=== PATIENT | male | born 1945 | race Caucasian/White ===

== ENCOUNTER → 2017-01-01 | Outpatient (CLI) | payer BC ==
[~2017-01-01] MED LIST: ASPCH81; FINA5TAB PO; FLM4 PO; NITR-5 PO; PHEN-876 PO; SULF800T23 PO
== END | disposition home or self-care (01) ==
LOC: C.LABPVFM 14:39
PROVIDERS: ATTEND Urology
DX: R31.29 Other microscopic hematuria (principal)

== ENCOUNTER → 2018-01-14 | Outpatient (CLI) | payer BC ==
--- NOTE | 2018-01-14 10:52 | DIAGNOSTIC IMAGING REPORT ---
KUB CLINICAL HISTORY: NEPHROLITHIASIS COMPARISON STUDY: CT scan dated December 12, 2015 FINDINGS: The renal shadows are partially obscured overlying bowel gas. Linear calcifications project over the upper pole the left kidney are likely vascular. No calculi are visualized. There is no pathologic bowel dilatation. Tiny pelvic basin calcifications while nonspecific likely represent phleboliths. Degenerative changes are present within the spine. IMPRESSION: No urinary tract calculi are visualized on conventional radiographic imaging Electronically signed by: Dev Montgomery M.D. 01/14/2018 10:51 AM Dictated Date/Time: 01/14/2018 10:50 AM
== END | disposition home or self-care (01) ==
LOC: C.LABPVFM 10:29
PROVIDERS: ATTEND Urology
DX: N20.0 Calculus of kidney (principal); R97.20 Elevated prostate specific antigen [PSA]; Z12.5 Encounter for screening for malignant neoplasm of prostate

== ENCOUNTER 2020-03-20 13:25 | Observation (INO) ==
--- OUTSIDE RECORDS SUMMARY | 2020-03-20 13:27 | External Medical Summary | Continuity of Care Document ---
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) Hyperlipidemia (272.4) (E78.5) Nephrolithiasis (592.0) (N20.0) Benign prostatic hyperplasia with urinary obstruction (600.0 1) (N40.1) Seborrheic keratosis (702.19) (L82.1) Melanocytic nevus of trunk (216.5) (D22.5) Actinic keratosis (702.0) (L57.0) Actinic skin damage (692.79) (L57.8) Encounter for prostate cancer screening (V76.44) (Z12.5) Elevated PSA (790.93) (R97.20) Hematuria, microscopic (599.72) (R31.29) 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 Refills: 0 hydroCHLOROthiazide 12.5 MG Oral Capsule Refills: 0 Metoprolol Tartrate 25 MG Oral Tablet Refills: 0 Simvastatin 20 MG Oral Tablet; TAKE 1 TABLET DAILY AT BEDTIME. HALLE Ocampo Quantity: 90 Refills: 1 Fluticasone Propionate 50 MCG/ACT Nasal Suspension; USE 2 SPRAYS IN EACH NOSTRIL TWICE DAILY. Refills: 0 Procedures History of Umbilical Hernia Repair Statu s: Completed Immunizations Immunizations not documented Social History - Smoking Status Never smoked tobacco Interventions Follow-ups/ReferralsFollow-up visit in 1 year; Done: 24 Jan 2019 Discussion/SummaryAssessment1. Lower urinary tract symptoms-doing well on Uroxatral-continue2. Prostate cancer screening-PSA normal OSMANI without nodularity 3. History of nephrolithiasis-no problems with stones recentlyGeneral stone prevention guidelines reinforced Plan of Treatment Planned Observations Planned Goals not documented Results No Known Results Results not documented Encounters Appointment; Pankaj Meier M.D. 04-Aug-2018 9:00 Encounter Diagnosis: Problem not documented Appointment; Morro Perez M.D. 24-Jan-2019 13:30 Encounter Diagnosis: Problem not documented
--- OUTSIDE RECORDS SUMMARY | 2020-03-20 13:28 | External Medical Summary | Continuity of Care Document ---
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 Refills: 0 Simvastatin 20 MG Oral Tablet; TAKE 1 TABLET DAILY AT BEDTIME. HALLE Ocampo Quantity: 90 Refills: 1 Fluticasone Propionate 50 MCG/ACT Nasal Suspension; USE 2 SPRAYS IN EACH NOSTRIL TWICE DAILY. Refills: 0 Alfuzosin HCl ER 10 MG Oral Tablet Exten ded Release 24 Hour; TAKE 1 TABLET Daily after supper Lauren Perez Start: 22-Oct-2015 Quantity: 90 Refills: 3 hydroCHLOROthiazide 12.5 MG Oral Capsule Refills: 0 Metoprolol Tartrate 25 MG Oral Tablet Refills: 0 Procedures History of Umbilical Hernia [...]
--- NOTE | 2020-03-20 14:51 | Emergency Department Note ---
ED Visit Note My name is Giovany Maher D.O. PGY-2, and I was involved in the care of this patient under attending ED physician Dr. Godfrey. . Resident Activity Tracking Resident Involvement: Resident Care Provided Care Provided: [facility]
[2020-03-20 14:59] LABS: INR 1.1 (0.9-1.1); Prothrombin Time 11.6 Seconds (9.0-12.0)
[2020-03-20 15:05] LABS: Aspartate Aminotransferase 17 U/L (15-37); BUN Creatinine Ratio 20.9 (10-20); Blood Urea Nitrogen 24 mg/dl (7-18); Calcium 9.5 mg/dl (8.5-10.1); Carbon Dioxide 28 mmol/L (21-32); Chloride 108 mmol/L (98-107); Creatinine Clr Calc Pharmacy 66.6 ml/min; Est GFR (African American) 70.8; Est GFR (Non-African American) 61.1; Glucose 95 mg/dl (70-99); Magnesium 2.1 mg/dl (1.8-2.4); Potassium 3.9 mmol/L (3.5-5.1); Sodium 140 mmol/L (136-145)
--- NOTE | 2020-03-20 15:05 | Emergency Department Note ---
History of Present Illness General Chief complaint: Syncope Stated complaint: FALL,SYNCOPE,HANDS TINGLING Time Seen by Provider: 03/20/20 14:05 Source: patient History of Present Illness Provider complaint: Syncope Onset (ago): hour(s) (1:30 PM today) Location: head Pain Consistency: + now resolved Maximum Pain Intensity: 0 Quality: + other Relieved By: + none Associated symptoms: no chest pain, no cough, no fever/chills, no nausea/vomit ing and no shortness of breath This is a 74-year-old male with a history of aortic stenosis presenting with a syncopal episode today. The patient was at work eating salty snacks. [facility] and walking with a colleague the next thing he remembers is his colleague standing over him while he is laying on the ground. He had no symptoms prior to the incident other than feeling thirsty. He states that he had no chest discomfort or shortness of breath, palpitations, abdominal pain or headache. He has had no cough or cold symptoms or known exposure to COVID-19. He did pass out approximately 30 years ago [place] the beach. He states going [place] the cold water [place] the warm environment caused him to pass out. He was hospitalized in [place] for 2 days where they put him on Lanoxin. He subsequently had another syncopal episode under similar circumstances and was told by cook chef not to go from [place] to a hot environment and was taken off of digoxin. Currently he states that he has tingling in both of his forearms and fingers as well as some jaw tightness. He states that he did not fall on his face or injure his teeth. He denies any neck pain or any other injury other than a head injury from the fall. He has no hip pain. No melena or bloody stools. Home Medications Home Medications Medication Instructions Recorded Confirmed Type alfuzosin 10 mg PO QPM 08/04/18 03/20/20 History aspirin 81 mg PO QPM 08/04/18 03/20/20 History fluticasone propionate [Flonase 2 spray INTRANASAL DAILY PRN 08/04/18 03/20/20 History Allergy Relief] hydrochlorothiazide 12.5 mg PO QAM 08/04/18 03/20/20 History metoprolol succinate 25 mg PO QAM 08/04/18 03/20/20 History simvastatin 20 mg PO QPM 08/04/18 03/20/20 History epinephrine [EpiPen] 0.3 mg IM DIRECTED PRN 03/20/20 03/20/20 History Allergies Allergy/AdvReac Type Severity Reaction Status Date / Time bee venom protein (honey bee) Allergy Severe Anaphylaxis Verified 03/20/20 16:37 Past Med/Surg History Medical History (Updated 03/20/20 @ 17:50 by Tylor Godfrey MD) Aortic stenosis (Acute) BPH (benign prostatic hyperplasia) Cardiac murmur CONGENITAL Degenerative disc disease History of pneumonia History of umbilical hernia Hyperlipidemia Hypertension Osteoarthritis Paroxysmal atrial fibrillation (Chronic) Surgical History History of cataract surgery RT History of colonoscopy History of herniorrhaphy History of surgery TUNA History of tonsillectomy History of tooth extraction Family History Other Cancer Heart disease Social History Preferred Language: Nigerien Communication Ability: Effective 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 and A total of 10 systems reviewed and were otherwise negative Physical Exam Vital Signs Vital Signs - 24 hr 03/20/20 13:48 03/20/20 14:04 03/20/20 14:07 Temperature 37.1 C Temperature Source Oral Pulse Rate - Lying Pulse Rate - Sitting Pulse Rate - Standing Pulse Rate 62 58 L 58 L Pulse Rate from SpO2 Sensor 59 L 58 L Respiratory Rate 16 22 20 Respiratory Depth Normal Blood Pressure - Lying Blood Pressure - Sitting Blood Pressure- Standing Blood Pressure 146/69 H 151/68 H Blood Pressure Mean 94 87 Pulse Oximetry 95 94 94 Oxygen Delivery Method Room Air Room Air Sepsis Recent Fever Within 48 Hours No Sepsis New/Unexplained Change in Mental Status No Sepsis Action Taken by Nursing No Action Required 03/20/20 14:10 03/20/20 14:20 03/20/20 14:30 Temperature Temperature Source Pulse Rate - Lying Pulse Rate - Sitting Pulse Rate - Standing Pulse Rate 63 62 63 Pulse Rate from SpO2 Sensor 63 62 Respiratory Rate 20 23 22 Respiratory Depth Blood Pressure - Lying Blood Pressure - Sitting Blood Pressure- Standing Blood Pressure 141/69 H Blood Pressure Mean 109 Pulse Oximetry 97 99 Oxygen Delivery Method Sepsis Recent Fever Within 48 Hours Sepsis New/Unexplained Change in Mental Status Sepsis Action Taken by Nursing 03/20/20 14:40 03/20/20 14:50 03/20/20 15:00 Temperature Temperature Source Pulse Rate - Lying Pulse Rate - Sitting Pulse Rate - Standing Pulse Rate 61 62 61 Pulse Rate from SpO2 Sensor 61 62 62 Respiratory Rate 20 20 23 Respiratory Depth Blood Pressure - Lying Blood Pressure - Sitting Blood Pressure- Standing Blood Pressure 125/66 Blood Pressure Mean 106 Pulse Oximetry 95 96 94 Oxygen Delivery Method Sepsis Recent Fever Within 48 Hours Sepsis New/Unexplained Change in Mental Status Sepsis Action Taken by Nursing 03/20/20 15:10 03/20/20 15:11 03/20/20 15:31 Temperature Temperature Source Pulse Rate - Lying 58 L Pulse Rate - Sitting 64 Pulse Rate - Standing 66 Pulse Rate 58 L 57 L 56 L Pulse Rate from SpO2 Sensor 57 L 57 L 57 L Respiratory Rate 17 19 20 Respiratory Depth Blood Pressure - Lying 141/66 H Blood Pressure - Sitting 145/69 H Blood Pressure- Standing 140/68 Blood Pressure 145/69 H 136/73 Blood Pressure Mean 105 86 Pulse Oximetry 96 95 96 Oxygen Delivery Method Sepsis Recent Fever Within 48 Hours Sepsis New/Unexplained Change in Mental Status Sepsis Action Taken by Nursing 03/20/20 15:40 03/20/20 15:50 03/20/20 16:00 Temperature Temperature Source Pulse Rate - Lying Pulse Rate - Sitting Pulse Rate - Standing Pulse Rate 58 L 57 L 62 Pulse Rate from SpO2 Sensor 59 L 57 L 63 Respiratory Rate 21 20 19 Respiratory Depth Blood Pressure - Lying Blood Pressure - Sitting Blood Pressure- Standing Blood Pressure Blood Pressure Mean Pulse Oximetry 95 94 97 Oxygen Delivery Method Sepsis Recent Fever Within 48 Hours Sepsis New/Unexplained Change in Mental Status Sepsis Action Taken by Nursing 03/20/20 16:01 03/20/20 16:10 03/20/20 16:20 Temperature Temperature Source Pulse Rate - Lying Pulse Rate - Sitting Pulse Rate - Standing Pulse Rate 58 L 58 L 56 L Pulse Rate from SpO2 Sensor 58 L 59 L 57 L Respiratory Rate 22 24 17 Respiratory Depth Blood Pressure - Lying Blood Pressure - Sitting Blood Pressure- Standing Blood Pressure 153/58 H Blood Pressure Mean 108 Pulse Oximetry 96 95 95 Oxygen Delivery Method Sepsis Recent Fever Within 48 Hours Sepsis New/Unexplained Change in Mental Status Sepsis Action Taken by Nursing 03/20/20 16:30 03/20/20 16:40 03/20/20 16:50 Temperature Temperature Source Pulse Rate - Lying Pulse Rate - Sitting Pulse Rate - Standing Pulse Rate 60 60 63 Pulse Rate from SpO2 Sensor 60 60 63 Respiratory Rate 16 21 21 Respiratory Depth Blood Pressure - Lying Blood Pressure - Sitting Blood Pressure- Standing Blood Pressure 149/71 H Blood Pressure Mean 104 Pulse Oximetry 95 96 97 Oxygen Delivery Method Sepsis Recent Fever Within 48 Hours Sepsis New/Unexplained Change in Mental Status Sepsis Action Taken by Nursing 03/20/20 17:00 03/20/20 17:01 03/20/20 17:10 Temperature Temperature Source Pulse Rate - Lying Pulse Rate - Sitting Pulse Rate - Standing Pulse Rate 65 64 61 Pulse Rate from SpO2 Sensor 63 63 62 Respiratory Rate 17 22 21 Respiratory Depth Blood Pressure - Lying Blood Pressure - Sitting Blood Pressure- Standing Blood Pressure 187/76 H Blood Pressure Mean 99 Pulse Oximetry 97 96 95 Oxygen Delivery Method Sepsis Recent Fever Within 48 Hours Sepsis New/Unexplained Change in Mental Status Sepsis Action Taken by Nursing 03/20/20 17:20 Temperature Temperature Source Pulse Rate - Lying Pulse Rate - Sitting Pulse Rate - Standing Pulse Rate 63 Pulse Rate from SpO2 Sensor 63 Respiratory Rate 19 Respiratory Depth Blood Pressure - Lying Blood Pressure - Sitting Blood Pressure- Standing Blood Pressure Blood Pressure Mean Pulse Oximetry 94 Oxygen Delivery Method Sepsis Recent Fever Within 48 Hours Sepsis New/Unexplained Change in Mental Status Sepsis Action Taken by Nursing Constitutional: Vital signs reviewed. Eyes: Pupils are equal round reactive to light. Conjunctiva are noninjected. ENT: Pharynx is clear without erythema or exudate. Mucous membranes are moist. No jaw or facial tenderness. No midline tenderness to the cervical spine. There is soft tissue swelling and an abrasion to the right occiput. Neck supple without meningeal signs. Respiratory: Clear to auscultation bilaterally. Breath sounds are equal bilaterally. Cardiovascular: Regular rate and rhythm. No rubs or gallops. 3 out of 6 systolic murmur in the right second ICS. GI: Soft, nondistended and nontender. Bowel sounds are present. Musculoskeletal: No peripheral edema. No lower extremity or hip tenderness. Integumentary: No cyanosis. or jaundice. Neurologic: The patient is awake and alert. Cranial nerves II-XII are intact. Motor is 5 out of 5 all extremities. Sensation is intact to light touch all extremities. Normal speech. Psychiatric: Normal affect. Not anxious appearing. Medical Decision Making Differential Diagnosis Syncope, dysrhythmia, aortic stenosis, orthostatic hypotension, anemia Medical Records Attestation: I reviewed the patient's medical records. I did perform a limited focused review of portions of the patient's old chart on the electronic medical record. The patient has had no recent pertinent visits to this hospital. Home Medications Current Medication List: was personally reviewed by me Laboratory Data Attestation: I reviewed the patient's lab results. Result diagrams: 03/20/20 14:40 03/20/20 14:40 Lab Results 03/20/20 03/20/20 03/20/20 Range/Units 14:40 14:40 14:40 WBC 8.56 (4.8-10.8) K/uL RBC 4.82 (4.7-6.1) M/uL Hgb 15.2 (14.0-18.0) g/dL Hct 43.8 (42-52) % MCV 90.9 (80-100) fL MCH 31.5 (25-34) pg MCHC 34.7 (32-36) g/dL RDW Std Deviation 43.6 (36.4-46.3) fL RDW Coeff of Neville 13.1 (11.5-14.5) % Plt Count 219 (130-400) K/uL MPV 10.1 (7.4-10.4) fL Immature Gran % (Auto) 0.2 % Neut % (Auto) 80.9 % Lymph % (Auto) 10.6 % [place] % (Auto) 6.1 % Eos % (Auto) 2.0 % Baso % (Auto) 0.2 % Immature Gran # (Auto) 0.02 (0.00-0.02) K/uL Neut # (Auto) 6.92 H (1.4-6.5) K/uL Lymph # (Auto) 0.91 L (1.2-3.4) K/uL [place] # (Auto) 0.52 (0.11-0.59) K/uL Eos # (Auto) 0.17 (0-0.5) K/uL Baso # (Auto) 0.02 (0-0.2) K/uL PT 11.6 (9.0-12.0) Seconds INR 1.1 (0.9-1.1) Sodium 140 (136-145) mmol/L Potassium 3.9 (3.5-5.1) mmol/L Chloride 108 H (98-107) mmol/L Carbon Dioxide 28 (21-32) mmol/L Anion Gap 4.0 (3-11) BUN 24 H (7-18) mg/dl Creatinine 1.17 (0.6-1.4) mg/dl Est Cr Clr Drug Dosing 66.6 ml/min Est GFR ( Amer) 70.8 Est GFR (Non-Af Amer) 61.1 BUN/Creatinine Ratio 20.9 H (10-20) Glucose 95 (70-99) mg/dl Calcium 9.5 (8.5-10.1) mg/dl Magnesium 2.1 (1.8-2.4) mg/dl Total Bilirubin 1.5 H (0.2-1) mg/dl AST 17 (15-37) U/L ALT 38 (12-78) U/L Alkaline Phosphatase 60 (45-117) U/L Troponin I < 0.015 (0-0.045) ng/ml Total Protein 6.8 (6.4-8.2) gm/dl Albumin 4.0 (3.4-5.0) gm/dl Globulin 2.8 (2.5-4.0) gm/dl Albumin/Globulin Ratio 1.4 (0.9-2) TSH 2.600 (0.300-4.500) uIu/ml Imaging Data Radiologist's Impression: CT head/brain wo con CT DOSE: HISTORY: syncope; posterior fall with occipital hematoma TECHNIQUE: Multiaxial CT images of the head were performed without the use of intravenous contrast. A dose lowering technique was utilized adhering to the principles of ALARA. Comparison: None. Findings: The paranasal sinuses and mastoid air cells are clear. The calvarium and skull base are intact. The ventricles and sulci are within normal limits. There is no mass, hematoma, midline shift, or acute infarct. Impression: No acute intracranial abnormality. ACT 112: Negative or not required by law. The above report was generated using voice recognition software. It may contain grammatical, syntax or spelling errors. Electronically signed by: Lee Weber M.D. 03/20/2020 3:[address] cervical spine wo con CT DOSE: 1103.51 mGy.cm HISTORY: Trauma syncope, posterior fall with head injury TECHNIQUE: Multiaxial CT images of the cervical spine were performed and reformatted in the sagittal and coronal plane without the use of contrast. A dose lowering technique was utilized adhering to the principles of ALARA. COMPARISON: None. FINDINGS: Vertebral body stature is normal. Degenerative disc change most prominent from C4 through C7. Sclerosis and degenerative osteophytic change of the vertebral endplates. Moderate degenerative change posterior elements with no acute process. IMPRESSION: Degenerative change. No acute bony abnormality. ACT 112: Negative or not required by law. The above report was generated using voice recognition software. It may contain grammatical, syntax or spelling errors. Electronically signed by: Lee Weber M.D. 03/20/2020 3:28 PM SINGLE VIEW CHEST CLINICAL HISTORY: Syncope. FINDINGS: An AP, portable, upright chest radiograph is compared to study dated 03/28/2010. The examination is degraded by portable technique and patient rotation. The heart is enlarged. There is mild pulmonary vascular congestion. There is elevation of the left hemidiaphragm and bibasilar atelectasis. No airspace consolidation or large pleural effusion is identified. No pneumothorax is seen. The skeletal structures are osteopenic. The bony thorax is grossly intact. IMPRESSION: Cardiomegaly with mild pulmonary vascular congestion. ACT 112: Negative or not required by law. Electronically signed by: Marcelino Hi M.D. 03/20/2020 3:06 PM ECG Data Attestation: I personally reviewed and interpreted this ECG as follows: Indication: + syncope Rate (beats per minute): 65 Rhythm: + normal sinus ECG Intervals/blocks: no Left bundle branch block ECG [place]: + Left axis deviation ECG ST segments: no ST elevation ECG Findings: no PVCs Additional Comments: Second twelve-lead EKG ordered and interpreted by myself at 1508 demonstrates sinus bradycardia with a rate of 58 bpm. There is a first- degree AV block. No widening of the QRS or QT interval. No PVCs. No concer karrie ST elevations for acute ischemia. There is persistent LVH and left axis deviation. Blood Pressure Blood Pressure Findings: Elevated blood pressure Blood Pressure Disposition: further management by hospitalist Head Trauma GCS Score: 15 MDM Narrative I did evaluate the patient as noted above. The patient is presenting with a syncopal episode. He does have a history of aortic stenosis. He states he had no symptoms prior to the syncope. He had a similar episode about 35 years ago related to coming from [place] into a warm environment. Today he was just walking to the water [place] when he passed out suddenly. Currently he has no significant symptoms other than some discomfort in his jaw. He states that he did not injure his jaw when he fell. He also has tingling in his hands. He denies having any chest discomfort or pain. IV access was established. I did place an order for continuous cardiac monitoring. The monitor showed normal sinus rhythm rate of 62. I did order and personally review the patient's 12- lead EKG as described above. He has no signs of acute ischemia. I did order and personally reviewed the images of the patient's chest x-ray as described above. Cardiomegaly with some vascular congestion. I did order and review the patient's blood work as noted in the electronic medical record. CBC is unremarkable without signs of anemia or leukocytosis. Electrolytes are unremarkable. Troponin is negative. TSH is within normal limits. I did order a CT of the head and cervical spine. I did review the images myself as well as the radiology report as described above. There is no evidence of acute fracture in the cervical spine or acute intracranial abnormality. He does state his tetanus shot is up-to-date. The test results were discussed with the patient. We recommended hospitalization for further evaluation of his symptoms and continued monitoring. He was agreeable. The case was discussed with the hospitalist and spring encaser. Resident Physician Supervision Note: I did perform an independent evaluation and examination of this patient as described. I also saw this patient in conjunction with the resident, Dr. Maher, and guided management for the patient. Impression & Plan Syncope, Aortic stenosis, Acute head injury Discharge Plan Visit Data Chief Complaint: Syncope Stated Complaint: FALL,SYNCOPE,HANDS TINGLING ED Provider: Tylor Godfrey ED Midlevel Provider: Giovany Maher Discharge Problem: Syncope, Aortic stenosis, Acute head injury Patient Disposition: Being Evaluated by Hospitalist Discharge Instructions Interventions: ED Discharge Assessment Last Done: 03/20/20 17:38 Forms Stand Alone Forms: My [facility] Prescriptions Prescriptions: No Action epinephrine [EpiPen] 0.3 mg/0.3 mL Auto-Injector 0.3 mg IM DIRECTED PRN (Reason: Allergic Reaction) RF: 0 aspirin 81 mg Tablet,Delayed Release (Dr/Ec) 81 mg PO QPM RF: 0 simvastatin 20 mg Tablet 20 mg PO QPM RF: 0 metoprolol succinate 25 mg Tablet Extended Release 24 Hr 25 mg PO QAM RF: 0 fluticasone propionate [Flonase Allergy Relief] 50 mcg/actuation [place],Suspension 2 spray INTRANASAL DAILY PRN (Reason: Allergy Symptoms) RF: 0 alfuzosin 10 mg Tablet Extended Release 24 Hr 10 mg PO QPM RF: 0 hydrochlorothiazide 12.5 mg Tablet 12.5 mg PO QAM RF: 0 Referrals Referrals: Omid Walls DO [Primary Care Provider] -
--- NOTE | 2020-03-20 15:07 | XRay Report ---
SINGLE VIEW CHEST CLINICAL HISTORY: Syncope. FINDINGS: An AP, portable, upright chest radiograph is compared to study dated 03/28/2010. The examina tion is degraded by portable technique and patient rotation. The heart is enlarged. There is mild pu lmonary vascular congestion. There is elevation of the left hemidiaphragm and bibasilar atelectasis. No airspace consolidation or large pleural effusion is identified. No pneumothorax is seen. The skele karyn structures are osteopenic. The bony thorax is grossly intact. IMPRESSION: Cardiomegaly with mild pulmonary vascular congestion. ACT 112: Negative or not required by law. Electronically signed by: Marcelino Hi M.D. 03/20/2020 3:06 PM
[2020-03-20 15:14] LABS: Alanine Aminotransferase 38 U/L (12-78); Albumin Globulin Ratio 1.4 (0.9-2); Alkaline Phosphatase 60 U/L (45-117); Bilirubin,Total 1.5 mg/dl (0.2-1); Globulin 2.8 gm/dl (2.5-4.0); Total Protein 6.8 gm/dl (6.4-8.2); Troponin I < 0.015 ng/ml (0-0.045)
--- NOTE | 2020-03-20 15:22 | Electrocardiogram Report ---
Test Reason : Blood Pressure : / mmHG Vent. Rate : 065 BPM Atrial Rate : 065 BPM P-R Int : 276 ms QRS Dur : 096 ms QT Int : 400 ms P-R-T Axes : 000 -41 020 degrees QTc Int : 416 ms Sinus rhythm with 1st degree A-V block Left axis deviation Moderate voltage criteria for LVH, may be normal variant Abnormal ECG No previous ECGs available Confirmed by Perfecto Ruiz ([id number]) on 03/20/2020 3:22:35 PM Referred By: Confirmed By:Perfecto Ruiz
--- NOTE | 2020-03-20 15:24 | Electrocardiogram Report ---
Test Reason : Blood Pressure : / mmHG Vent. Rate : 058 BPM Atrial Rate : 058 BPM P-R Int : 276 ms QRS Dur : 082 ms QT Int : 406 ms P-R-T Axes : 061 -36 011 degrees QTc Int : 398 ms Sinus bradycardia with 1st degree A-V block Left axis deviation Moderate voltage criteria for LVH, may be normal variant Abnormal ECG When compared with ECG of 20-MAR-2020 14:31, (unconfirmed) No significant change was found Confirmed by Perfecto Ruiz ([id number]) on 03/20/2020 3:23:38 PM Referred By: REFERRED SELF Confirmed By:Perfecto Ruiz
--- NOTE | 2020-03-20 15:27 | CT Scan Report ---
CT head/brain wo con CT DOSE: HISTORY: syncope; posterior fall with occipital hematoma TECHNIQUE: Multiaxial CT images of the head were performed without the use of intravenous contrast. A dose lowering technique was utilized adhering to the principles of ALARA. Comparison: None. Findings: The paranasal sinuses and mastoid air cells are clear. The calvarium and skull base are int act. The ventricles and sulci are within normal limits. There is no mass, hematoma, midline shift, or acute infarct. Impression: No acute intracranial abnormality. ACT 112: Negative or not required by law. The above report was generated using voice recognition software. It may contain grammatical, syntax or spelling errors. Electronically signed by: Lee Weber M.D. 03/20/2020 3:26 PM
[2020-03-20 15:29] LABS: Basophils # (auto) 0.02 K/uL (0-0.2); Basophils % (auto) 0.2 %; Eosinophils # (auto) 0.17 K/uL (0-0.5); Hematocrit (blood only) 43.8 % (42-52); Hemoglobin 15.2 g/dL (14.0-18.0); Immature Granulocytes # (auto) 0.02 K/uL (0.00-0.02); Immature Granulocytes % (auto) 0.2 %; Lymphocytes # (auto) 0.91 K/uL (1.2-3.4); Lymphocytes % (auto) 10.6 %; Mean Corpuscular Hemoglobin 31.5 pg (25-34); Mean Corpuscular Hgb Conc 34.7 g/dL (32-36); Mean Corpuscular Volume 90.9 fL (80-100); Mean Platelet Volume 10.1 fL (7.4-10.4); Monocytes # (auto) 0.52 K/uL (0.11-0.59); Monocytes % (auto) 6.1 %; Neutrophils # (auto) 6.92 K/uL (1.4-6.5); Neutrophils % (auto) 80.9 %; Platelet Count 219 K/uL (130-400); RDW Coefficient of Variation 13.1 % (11.5-14.5); RDW Standard Deviation 43.6 fL (36.4-46.3); Red Blood Count 4.82 M/uL (4.7-6.1); White Blood Count 8.56 K/uL (4.8-10.8)
--- NOTE | 2020-03-20 15:30 | CT Scan Report ---
CT cervical spine wo con CT DOSE: 1103.51 mGy.cm HISTORY: Trauma syncope, posterior fall with head injury TECHNIQUE: Multiaxial CT images of the cervical spine were performed and reformatted in the sagittal and coronal plane without the use of contrast. A dose lowering technique was utilized adhering to th e principles of ALARA. COMPARISON: None. FINDINGS: Vertebral body stature is normal. Degenerative disc change most prominent from C4 through C 7. Sclerosis and degenerative osteophytic change of the vertebral endplates. Moderate degenerative change posterior elements with no acute process. IMPRESSION: Degenerative change. No acute bony abnormality. ACT 112: Negative or not required by law. The above report was generated using voice recognition software. It may contain grammatical, syntax or spelling errors. Electronically signed by: Lee Weber M.D. 03/20/2020 3:28 PM
--- NOTE | 2020-03-20 17:19 | History & Physical Report ---
Date of Service March 20, 2020 Assessment & Plan (1) Syncope: This is a 74yo M with a PMH of moderate aortic stenosis, paroxysmal atrial fibrillation, HTN and HLD who presents after syncopal episode this afternoon. -Likely 2/2 orthostatic hypotension with positional change, also concern for cardiac cause due to h/o moderate aortic stenosis -Decreased fluid intake today due to dental procedure. Holding Hctz and Alfuzosin -Observe overnight on telemetry, orthostatic vitals, repeat 2D echo (2) Aortic stenosis: Follows with Dr. Aquino. Most recent echo from Aug 2019 with stable, unchanged moderate (3) Minor head trauma: Soft tissue swelling and small abrasion of occiput following fall. No acute intracranial abnormality on head CT, cervical spine CT without acute fracture or subluxation -Denies headache or confusion. Continue monitoring (4) Paroxysmal atrial fibrillation: Continue metoprolol succinate (5) Hypertension: Holding hctz for now. Continue beta nati (6) Hyperlipidemia: Continue simvastatin (7) BPH (benign prostatic hyperplasia): Holding alfuzosin due to side effects of orthostatic hypotension. May consider switching to different BPH medication DVT Ppx: SCDs Code status:FULL PCP: Helga Walls Dispo: Observe in PCU. Plan to return home once medically stable. Patient seen in collaboration with Dr. Chakraborty. Please see addendum. History of Present Illness Primary Care Provider: Omid Walls DO This is a 74yo M with a PMH of moderate aortic stenosis, paroxysmal atrial fibrillation, HTN and HLD who presents after syncopal episode this afternoon. Patient had just eaten lunch and stood up to walk to the kitchen to get a drink of water when he became to "feel funny," falling backwards and hitting his head. Came to with employee standing beside him stating that he lost consciousness for a minute. Denies any preceding chest pain or shortness of breath. Did have dental appointment earlier in the day, so he did not have his regular fluid intake today. Remote history of syncopal episode approximately 35 years ago. Does have known moderate aortic stenosis and follows with Dr. Aquino of [facility] cardiology. Most recent echocardiogram from August 2019 revealing stable moderate aortic stenosis. Currently feels asymptomatic. Denies fever, chills, lightheadedness, headache, visual changes, chest pain, shortness of breath, nausea, vomiting, abdominal pain, dysuria, constipation or diarrhea. Allergies Allergy/AdvReac Type Severity Reaction Status Date / Time bee venom protein (honey bee) Allergy Severe Anaphylaxis Verified 03/20/20 16:37 Home Medications Home Medications Medication Instructions Recorded Confirmed Type alfuzosin 10 mg PO QPM 08/04/18 03/20/20 History aspirin 81 mg PO QPM 08/04/18 03/20/20 History fluticasone propionate [Flonase 2 spray INTRANASAL DAILY PRN 08/04/18 03/20/20 History Allergy Relief] hydrochlorothiazide 12.5 mg PO QAM 08/04/18 03/20/20 History metoprolol succinate 25 mg PO QAM 08/04/18 03/20/20 History simvastatin 20 mg PO QPM 08/04/18 03/20/20 History epinephrine [EpiPen] 0.3 mg IM DIRECTED PRN 03/20/20 03/20/20 History Past Med/Surg History Medical History (Updated 03/20/20 @ 17:50 by Tylor Godfrey MD) Aortic stenosis (Acute) BPH (benign prostatic hyperplasia) Cardiac murmur CONGENITAL Degenerative disc disease History of pneumonia History of umbilical hernia Hyperlipidemia Hypertension Osteoarthritis Paroxysmal atrial fibrillation (Chronic) Surgical History History of cataract surgery RT History of colonoscopy History of herniorrhaphy History of surgery TUNA History of tonsillectomy History of tooth extraction Family History Other Cancer Heart disease Social History Preferred Language: Hungarian Communication Ability: Effective 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 Physical Exam Physical Exam: General Appearance: WD/WN, vitals as above, NAD, sitting up in bed, pleasant, conversing easily Head: normocephalic, soft tissue swelling and an abrasion to the right occiput Eyes: normal inspection, PERRL, conjunctivae normal, anicteric sclerae ENT: external ear and nose normal, oropharynx normal Neck: trachea midline, no thyromegaly, normal visual inspection Respiratory: normal respiratory effort, lungs clear to auscultation, no wheeze, rales, rhonchi. Normal insp/exp effort, no accessory muscle use Cardiovascular: regular rate, rhythm, 3/6 systolic murmur best heard, normal peripheral pulses. Vessels: no JVD or carotid bruit Chest: normal inspection of chest Abdomen/GI: normal bowel sounds, soft, nontender, no hepatosplenomegaly Extremities/Musculoskeletal: no cyanosis or clubbing, extremities motor strength 5/5 Neurologic: PERRL, EOMI, accommodation nl, no face palsy, no dysarthria, CN's II-XI intact bilaterally and moves all extremities Psychiatric: A+Ox3, euthymic affect Skin: no rashes, normal color, warm/dry Results & Data Results & Data ([facility]) Vital Signs (Past 12 Hours) Vital Signs Temp Pulse Resp BP Pulse Ox 03/20/20 14:04 95 03/20/20 13:48 37.1 C 62 16 146/69 H 95 Laboratory Results Short CBC 03/20/20 Range/Units 14:40 WBC 8.56 (4.8-10.8) K/uL Hgb 15.2 (14.0-18.0) g/dL Hct 43.8 (42-52) % Plt Count 219 (130-400) K/uL BMP 03/20/20 14:40 Sodium 140 Potassium 3.9 Chloride 108 H Carbon Dioxide 28 BUN 24 H Creatinine 1.17 Glucose 95 Calcium 9.5 Cardiac Enzymes 03/20/20 Range/Units 14:40 Troponin I < 0.015 (0-0.045) ng/ml Liver Function 03/20/20 Range/Units 14:40 Total Bilirubin 1.5 H (0.2-1) mg/dl AST 17 (15-37) U/L ALT 38 (12-78) U/L Alkaline Phosphatase 60 (45-117) U/L Albumin 4.0 (3.4-5.0) gm/dl Diagnostic Findings CT head: Impression: No acute intracranial abnormality Cervical spine CT: Vertebral body stature is normal. Degenerative disc change most prominent from C4 through C7. Sclerosis and degenerative osteophytic change of the vertebral endplates. Moderate degenerative change posterior elements with no acute process. CXR: IMPRESSION: Cardiomegaly with mild pulmonary vascular congestion. Supervising Physician Co-Signing Physician Notes ASSESSMENT AND PLAN : this is a 74 yo male presented to ER with brief episode of syncope CT head no acute change vitals stable no focal nurological deficit possible syncope due to dehydration ? ordered to hold HCTZ , check orthostatic vitals hx of Aortic stenosis pt denied of any symptoms of SOB , PEREZ , feeling dizzy or lightheaded prior or after syncope repeat eCHO ordered please refer to further documentaion by Lyn Friend PA-C for discussion of other chronic issues Tarah Chakraborty MD
[2020-03-20] MEDS ORDERED: NITROGLYCERIN SL 0.4 MG/TAB TAB SL PRN (18:02)
[2020-03-20] MEDS ORDERED: EPINEPHRINE ADULT AUTO-INJECT 0.3 MG SYR IM PRN (18:02)
[2020-03-20] MEDS ORDERED: MAGNESIUM HYDROXIDE SUSP 30 ML UDC PO PRN (18:02)
[2020-03-20] MEDS ORDERED: ONDANSETRON INJ 2 MG/ML 2 ML VIAL IV PRN (18:02)
[2020-03-20] MEDS ORDERED: POLYETHYLENE (MIRALAX) 17 GM PACK PO PRN (18:02)
[2020-03-20] MEDS ORDERED: ALUMINUM/MAGNESIUM SUSP 30 ML UDC PO PRN (18:02)
[2020-03-20] MEDS ORDERED: FLUTICASONE PROPIONATE NA SPR 16 GM BTL NAE PRN (18:02)
[2020-03-20] MEDS ORDERED: ACETAMINOPHEN 325 MG TAB PO PRN (18:02)
[2020-03-20] MEDS ORDERED: ASPIRIN 81 MG ECTAB PO SCH (21:00)
[2020-03-20] MEDS ORDERED: SIMVASTATIN 20 MG TAB PO SCH (21:00)
[2020-03-21 06:35] LABS: Hematocrit (blood only) 43.4 % (42-52); Hemoglobin 15.2 g/dL (14.0-18.0); Mean Corpuscular Hemoglobin 31.5 pg (25-34); Mean Corpuscular Volume 89.9 fL (80-100); Mean Platelet Volume 10.2 fL (7.4-10.4); Platelet Count 208 K/uL (130-400); RDW Coefficient of Variation 13.1 % (11.5-14.5); RDW Standard Deviation 42.7 fL (36.4-46.3); Red Blood Count 4.83 M/uL (4.7-6.1); White Blood Count 8.26 K/uL (4.8-10.8)
[2020-03-21 06:57] LABS: BUN Creatinine Ratio 22.7 (10-20); Creatinine Clr Calc Pharmacy 79.8 ml/min; Est GFR (Non-African American) 78.5; Potassium 3.7 mmol/L (3.5-5.1)
[2020-03-21] MEDS ORDERED: METOPROLOL SUCC 25MG EXT REL TAB PO SCH (09:00)
[2020-03-21] MEDS ORDERED: hydroCHLOROthiazide 25 MG TAB PO SCH (10:15)
--- NOTE | 2020-03-21 12:26 | Hospitalist Progress Note ---
Date of Service March 21, 2020 Assessment & Plan (1) Syncope: Present on admission with syncopal episode Possible related to orthostatic hypotension due to low PO intake before dental procedure CT head showed no acute intracranial abnormality No arrhythmia on tele monitor Will resume HCTZ today Echo pending Continue monitor closely (2) Aortic stenosis: Follows with Dr. Aquino. Most recent echo from Aug 2019 with stable, unchanged moderate Repeat Echo done today and pending result (3) Minor head trauma: CT head showed soft tissue swelling and small abrasion of occiput following fall. No acute intracranial abnormality CT Cervical spine showed no acute fracture or subluxation Clinically stable (4) Paroxysmal atrial fibrillation: Continue metoprolol succinate (5) Hypertension: BP elevated HCTZ resumed Continue beta nati (6) Hyperlipidemia: Continue simvastatin (7) BPH (benign prostatic hyperplasia): Holding alfuzosin due to side effects of orthostatic hypotension. May consider switching to different BPH medication DVT Ppx: SCDs Code status:FULL PCP: Helga Walls Dispo: Possible discharge home today Admission and Anticipated Discharge Date Admission Date: March 20, 2020 Subjective Pt was seen and examined Lying in bed with no distress Pt said that he feels fine He said that he walked around with no discomfort Denies any chest pain, palpitation, dizziness and SOB Physical Exam Physical Exam: General- No acute distress Head- atraumatic Eyes- PERRL, EOMI, ENT- oropharynx clear Neck- supple, no JVD Lungs- clear to auscultation Heart- +murmur Abdomen- normal bowel sounds, soft, nontender Extremities- no calf tenderness Neuro- alert, oriented x 3; PERRL, EOMI; no facial palsy; no dysarthria Skin- warm & dry Results & Data Results & Data ([facility]) Vital Signs (Past 12 Hours) Vital Signs Temp Pulse Pulse Resp BP Pulse Ox 03/21/20 11:24 37.0 C 54 L 14 156/77 H 95 03/21/20 08:00 53 L 03/21/20 07:48 36.7 C 60 20 173/76 H 95 03/21/20 03:25 36.6 C 57 L 18 162/76 H 94 (1) Aortic stenosis Cardiac valve disease etiology: etiology unspecified Qualified Code(s): I35.0 - Nonrheumatic aortic (valve) stenosis
--- NOTE | 2020-03-22 07:59 | Discharge Summary ---
Date of Service March 21, 2020 Admission HPI Per Admitting Provider This is a 74yo M with a PMH of moderate aortic stenosis, paroxysmal atrial fibrillation, HTN and HLD who presents after syncopal episode this afternoon. Patient had just eaten lunch and stood up to walk to the kitchen to get a drink of water when he became to "feel funny," falling backwards and hitting his head. Came to with employee standing beside him stating that he lost consciousness for a minute. Denies any preceding chest pain or shortness of breath. Did have dental appointment earlier in the day, so he did not have his regular fluid intake today. Remote history of syncopal episode approximately 35 years ago. Does have known moderate aortic stenosis and follows with Dr. Aquino of [facility] cardiology. Most recent echocardiogram from August 2019 revealing stable moderate aortic stenosis. Currently feels asymptomatic. Denies fever, chills, lightheadedness, headache, visual changes, chest pain, shortness of breath, nausea, vomiting, abdominal pain, dysuria, constipation or diarrhea. Admission Exam Per Admitting Provider General Appearance: WD/WN, vitals as above, NAD, sitting up in bed, pleasant, conversing easily Head: normocephalic, soft tissue swelling and an abrasion to the right occiput Eyes: normal inspection, PERRL, conjunctivae normal, anicteric sclerae ENT: external ear and nose normal, oropharynx normal Neck: trachea midline, no thyromegaly, normal visual inspection Respiratory: normal respiratory effort, lungs clear to auscultation, no wheeze, rales, rhonchi. Normal insp/exp effort, no accessory muscle use Cardiovascular: regular rate, rhythm, 3/6 systolic murmur best heard, normal peripheral pulses. Vessels: no JVD or carotid bruit Chest: normal inspection of chest Abdomen/GI: normal bowel sounds, soft, nontender, no hepatosplenomegaly Extremities/Musculoskeletal: no cyanosis or clubbing, extremities motor strength 5/5 Neurologic: PERRL, EOMI, accommodation nl, no face palsy, no dysarthria, CN's II-XI intact bilaterally and moves all extremities Psychiatric: A+Ox3, euthymic affect Skin: no rashes, normal color, warm/dry Principal Diagnosis Syncope: Aortic stenosis: Minor head trauma: Paroxysmal atrial fibrillation: Hypertension: Hyperlipidemia: BPH (benign prostatic hyperplasia): Discharge Exam General- No acute distress Head- atraumatic Eyes- PERRL, EOMI, ENT- oropharynx clear Neck- supple, no JVD Lungs- clear to auscultation Heart- +murmur Abdomen- normal bowel sounds, soft, nontender Extremities- no calf tenderness Neuro- alert, oriented x 3; PERRL, EOMI; no facial palsy; no dysarthria Skin- warm & dry Discharge Data Allergies Allergy/AdvReac Type Severity Reaction Status Date / Time bee venom protein (honey bee) Allergy Severe Anaphylaxis Verified 03/20/20 16:37 Consultations 03/20/20 16:13 ED Decision to Admit Stat Ordered Studies 03/20/20 14:30 CT head/brain wo con Stat 03/20/20 14:43 CT cervical spine wo con Stat CT head/brain wo con CT DOSE: HISTORY: syncope; posterior fall with occipital hematoma TECHNIQUE: Multiaxial CT images of the head were performed without the use of intravenous contrast. A dose lowering technique was utilized adhering to the principles of ALARA. Comparison: None. Findings: The paranasal sinuses and mastoid air cells are clear. The calvarium and skull base are intact. The ventricles and sulci are within normal limits. There is no mass, hematoma, midline shift, or acute infarct. Impression: No acute intracranial abnormality. ACT 112: Negative or not required by law. The above report was generated using voice recognition software. It may contain grammatical, syntax or spelling errors. Electronically signed by: Lee Weber M.D. 03/20/2020 3:26 PM Dictated: 03/20/20 1525 Transcribed: 03/20/[address] cervical spine wo con CT DOSE: 1103.51 mGy.cm HISTORY: Trauma syncope, posterior fall with head injury TECHNIQUE: Multiaxial CT images of the cervical spine were performed and reformatted in the sagittal and coronal plane without the use of contrast. A dose lowering technique was utilized adhering to the principles of ALARA. COMPARISON: None. FINDINGS: Vertebral body stature is normal. Degenerative disc change most prominent from C4 through C7. Sclerosis and degenerative osteophytic change of the vertebral endplates. Moderate degenerative change posterior elements with no acute process. IMPRESSION: Degenerative change. No acute bony abnormality. ACT 112: Negative or not required by law. The above report was generated using voice recognition software. It may contain grammatical, syntax or spelling errors. Electronically signed by: Lee Weber M.D. 03/20/2020 3:28 PM Dictated: 03/20/20 1526 Transcribed: 03/20/20 1526 SINGLE VIEW CHEST CLINICAL HISTORY: Syncope. FINDINGS: An AP, portable, upright chest radiograph is compared to study dated 03/28/2010. The examination is degraded by portable technique and patient rotation. The heart is enlarged. There is mild pulmonary vascular congestion. There is elevation of the left hemidiaphragm and bibasilar atelectasis. No airspace consolidation or large pleural effusion is identified. No pneumothorax is seen. The skeletal structures are osteopenic. The bony thorax is grossly int act. IMPRESSION: Cardiomegaly with mild pulmonary vascular congestion. ACT 112: Negative or not required by law. Electronically signed by: Marcelino Hi M.D. 03/20/2020 3:06 PM Dictated: 03/20/20 1504 Transcribed: 03/20/20 1504 Hospital Course (1) Syncope: Present on admission with syncopal episode Possible related to orthostatic hypotension due to low PO intake before dental procedure CT head showed no acute intracranial abnormality No arrhythmia on tele monitor Will resume HCTZ today Echo pending Continue monitor closely (2) Aortic stenosis: Follows with Dr. Aquino. Most recent echo from Aug 2019 with stable, unchanged moderate Repeat Echo done today and pending result (3) Minor head trauma: CT head showed soft tissue swelling and small abrasion of occiput following fall. No acute intracranial abnormality CT Cervical spine showed no acute fracture or subluxation Clinically stable (4) Paroxysmal atrial fibrillation: Continue metoprolol succinate (5) Hypertension: BP elevated HCTZ resumed Continue beta nati (6) Hyperlipidemia: Continue simvastatin (7) BPH (benign prostatic hyperplasia): Holding alfuzosin due to side effects of orthostatic hypotension. May consider switching to different BPH medication DVT Ppx: SCDs Code status:FULL PCP: Helga Walls Dispo: Possible discharge home today Total Time Total Time Spent Total Time Spent (In Minutes): 35 minutes Total Time Includes: Examination of the Patient, Discharge Planning, Medication Reconciliation, Communication With Other Providers and Other Discharge Plan Discharge Items Patient Disposition: Home - Self-Care Reason For Visit: SYNCOPE Discharge Diagnosis: Syncope: Aortic stenosis: Minor head trauma: Paroxysmal atrial fibrillation: Hypertension: Hyperlipidemia: BPH (benign prostatic hyperplasia): Activity: Resume your previous activity Non-emergency contact: Primary Care Provider and Armament Mechanic Call non-emergency contact if: you have any medication questions Follow-up/Referrals: Omid Walls, [Primary Care Provider] - Diet: Heart Healthy Addtl Attending Provider Instructions: Follow up with your primary care provider Dr. Geiger on 03/26 @ 10:55 AM Fall precaution Monitor your blood pressure and bring your blood pressure log at your next appointment with your physician Pending Studies at Discharge: No Stand-Alone Forms: My [facility] [employer], Smoking Cessation Medications and DC Order Prescriptions: Continued epinephrine [EpiPen] 0.3 mg/0.3 mL Auto-Injector 0.3 mg IM DIRECTED PRN (Reason: Allergic Reaction) RF: 0 aspirin 81 mg Tablet,Delayed Release (Dr/Ec) 81 mg PO QPM RF: 0 simvastatin 20 mg Tablet 20 mg PO QPM RF: 0 metoprolol succinate 25 mg Tablet Extended Release 24 Hr 25 mg PO QAM RF: 0 fluticasone propionate [Flonase Allergy Relief] 50 mcg/actuation [place],Suspension 2 spray INTRANASAL DAILY PRN (Reason: Allergy Symptoms) RF: 0 alfuzosin 10 mg Tablet Extended Release 24 Hr 10 mg PO QPM RF: 0 hydrochlorothiazide 12.5 mg Tablet 12.5 mg PO QAM RF: 0 Discharge Orders: Discharge Order (Routine); Ordered 03/21/20 Ordered By: Carlos Velazquez Admission Data Admit Date/Time: 03/20/20 17:06 Attending Provider: Carlos Velazquez Admit Provider: Tarah Chakraborty Primary Care Provider: Omid Walls Other Providers: Tarah Chakraborty Other Interventions: Discharge Summary Assessment (RN) Last Done: 03/21/20 15:20 DC Date/Time DO NOT enter until pt leaves facility: 03/21/20 17:36
== END 2020-03-21 17:36 | disposition home or self-care (01) ==
LOC: ED 13:25 → 2S 13:25 → SUATTDRO 17:06 → 2S 17:38

== ENCOUNTER 2023-02-28 18:09 | Inpatient (IN) ==
[2023-02-28] MEDS ORDERED: SODIUM CHLORIDE 0.9% 500 ML IV STA (18:19)
--- NOTE | 2023-02-28 18:37 | Emergency Department Note ---
Impression & Plan Atrial fibrillation with rapid ventricular response, Generalized abdominal pain, Non-productive cough, Anaplasmosis, Acute Lyme disease ED Provider Note INFORMANT: Patient ED PROVIDER(S): Adam Barbosa MD CHIEF COMPLAINT: Fatigue and recurrent A-fib PLAN: Disposition: Admitted Condition: Good Outpatient prescription management: none Referral: None MEDICAL DECISION MAKING: Patient presented because of being found to be in rapid A-fib with RVR. Blood work was done. His CBC and differential was concerning for anaplasmosis per hematology. Patient had an elevated troponin. His ECG did show A-fib with RVR. With fluids his heart rate improved and he did not require direct intervention for the rapid A-fib. His hypotension resolved. The patient was found to have elevated LFTs. He was dehydrated. Patient's lactate was initially elevated but cleared. I did order sepsis fluids based upon his ideal body weight however after discussion with internal medicine for admission, Dr. Robinson Wick, [place] [facility], he canceled the third liter due to the patient's cardiac history. Patient received IV doxycycline. Patient's Lyme titer also revealed positive IgM. Western blot pending. CT scan of the abdomen pelvis was negative for acute pathology. Due to the elevated LFTs gallbladder ultrasound was performed and did not reveal any evidence of acute cholecystitis. Further management will be necessary in the hospital. Discussed with assurance services manager health care After review of the information above and other included data, I feel the patient requires admission. Triage Nursing notes reviewed and agree them. Vital Signs: reviewed and remarkable for rapid A-fib. Patient was also hypotensive. Prior /Outside records reviewed: none Differential diagnosis: Infection, dehydration, metabolic abnormality, hypo/hyperglycemia, electrolyte disturbance, anemia, hypoxia, cardiac sources, intracerebral event, toxicologic, neurologic, as well as other pathologies. Diagnostics, as interpreted by me: ECG: Twelve-lead ECG reveals atrial fibrillation with rapid ventricular response at 114 bpm. PVCs present. Left axis deviation and LVH. Cardiac Monitoring: Cardiac monitoring ordered by me: The patient was placed on continuous cardiac monitoring and observed. It revealed a atrial fibrillation at 110 bpm. Medical decision rules: none Imaging studies: Chest x-ray. Findings: A chest x-ray was performed and revealed no pneumothorax, effusion, infiltrate, pulmonary edema, free air under the diaphragm, or wide mediastinum. Impression: No acute disease.. CT scan abdomen pelvis negative for acute pathology. Prominent appearing gallbladder. Gallbladder ultrasound imaging negative for acute cholecystitis. I refer you to the EMR for further details. HPI: The patient is a 77year old male who presents to the Emergency Room with complaints of fatigue and recurrent A-fib. This started fatigue and general malaise started about 3 weeks ago and is worsening. Patient notes a nonproductive cough over the last week.. The patient also notes the following associated symptoms, nausea, constipation, generalized abdominal pain, shortness of breath at times. Patient went to the [facility] and was found to be in A-fib with RVR. Patient sent to the ER for further evaluation. The patient has received no medication for relieving factors. Current pain is rated as 2/10. Pt denies LOC, headache, fevers, chills, diaphoresis, visual changes, neck pain, chest pain, vomiting, back pain, urinary symptoms, numbness, lymphadenopathy, rash, or other complaints. PAST MEDICAL HISTORY: See Below, paroxysmal A-fib, aortic stenosis PAST SURGICAL HISTORY: See Below, SOCIAL HISTORY: See Below, HOME MEDICATIONS: See Below ALLERGIES: See Below VITALS: See Below PHYSICAL EXAMINATION: GENERAL: Awake, alert, uncomfortable-appearing, in no distress HENT: Normocephalic, atraumatic. Oropharynx unremarkable. EYES: Normal conjunctiva. Sclera non-icteric. NECK: Inspection normal. Non-tender. Supple. No nuchal rigidity. FROM. No masses. RESPIRATORY: Clear to auscultation. No wheezes. No rales. Normal respiratory effort. CARDIAC: Tachycardic rate. Irregular rhythm. No murmurs. No rubs. Extremities warm and well perfused. Pulses equal. No JVD. GI: Soft, mildly-distended. Mild generalized tenderness to palpation. No rebound or guarding. No masses. RECTAL: Deferred. MUSCULOSKELETAL: Atraumatic. Chest examination reveals no tenderness. The back is symmetrical on inspection without obvious abnormality. There is no CVA tenderness to palpation. No joint edema. LOWER EXTREMITIES: Calves are equal size bilaterally and non-tender. No edema. No discoloration. NEURO: Normal sensorium. No sensory or motor deficits noted. SKIN: No rash or jaundice noted. CRITICAL CARE: I have personally spent greater than 35 minutes of critical care time in the direct management of this patient. This includes bedside care, interpretation of diagnostic studies, and testing, discussion with consultants, patient, and family members, and other required patient management activities. These minutes are in excess of all separately billable procedures. Past Med/Surg History Medical History (Updated 03/01/23 @ 18:14 by Adam Barbosa MD) Aortic stenosis Cardiac murmur CONGENITAL Degenerative disc disease History of pneumonia History of umbilical hernia Hyperlipidemia Hypertension Osteoarthritis Paroxysmal atrial fibrillation Surgical History History of cataract surgery RT History of colonoscopy History of herniorrhaphy History of surgery TUNA History of tonsillectomy History of tooth extraction Family History Other Cancer Heart disease Social History Smoking Status: Never smoker Second Hand Exposure: No; Do You Dip or Chew Tobacco: No; Hx Alcohol Use: No Hx Substance Use: No Preferred Language: Lithuanian Communication Ability: Effective Drier And Pulverizer Tender Required: No Beliefs That Will Affect Care: None Current Living Situation: Spouse Other Information That Helps Us Care for You: No Feels Safe at Home: Yes Safety Concerns: Feels Safe At This Time Assistive Devices: Glasses Allergies Allergies Allergy/AdvReac Type Severity Reaction Status Date / Time bee venom protein (honey bee) Allergy Severe Anaphylaxis--PER Verified 02/28/23 18:51 GMG "HYPOTENSIVE EPISODE" Home Meds Home Medications Medication Instructions Recorded Confirmed fluticasone propionate 50 2 spray intranasal DAILY PRN 08/04/18 02/28/23 mcg/actuation nasal Allergy Symptoms spray,suspension (Flonase Allergy Relief) hydrochlorothiazide 12.5 mg tablet 12.5 mg PO QAM 08/04/18 02/28/23 metoprolol succinate 25 mg 25 mg PO QAM 08/04/18 02/28/23 tablet,extended release 24 hr simvastatin 20 mg tablet 20 mg PO QPM 08/04/18 02/28/23 epinephrine 0.3 mg/0.3 mL 0.3 mg IM DIRECTED PRN Allergic 03/20/20 02/28/23 injection, auto-injector (EpiPen) Reaction ascorbic acid (vitamin C) 1,000 mg 1 g PO QAM 11/18/22 02/28/23 capsule cholecalciferol (vitamin D3) 25 25 mcg PO QPM 11/18/22 02/28/23 mcg (1,000 unit) capsule famotidine 20 mg tablet 20 mg PO DAILY 11/18/22 02/28/23 ferrous gluconate 240 mg (27 mg 240 mg PO DAILY 11/18/22 02/28/23 iron) tablet (Ferate) fluoride (sodium) 1.1 % dental 1 applic dental DAILY 11/18/22 02/28/23 paste (PreviDent 5000 Dry Mouth) multivitamin 1 tab PO DAILY 11/18/22 02/28/23 zinc acetate 50 mg (zinc) capsule 50 mg PO DAILY 11/18/22 02/28/23 (Galzin) acetaminophen 500 mg tablet 1,000 mg PO Q6H PRN PAIN/FEVER 02/28/23 02/28/23 (Tylenol Extra Strength) amoxicillin 500 mg capsule 500 mg PO DIRECTED PRN PRIOR TO 02/28/23 02/28/23 DENTAL PROCEDURES docusate sodium 100 mg capsule 100 mg PO BID PRN Constipation 02/28/23 02/28/23 ondansetron 4 mg disintegrating 4 mg PO Q8H PRN NAUSEA/VOMITING 02/28/23 02/28/23 tablet Results & Data (ED) Vital Signs Vital Signs - 24 hr 02/28/23 18:11 02/28/23 18:15 02/28/23 18:23 Temperature 36.8 C Temperature Source Temporal Artery Scan Pulse Rate 114 H Pulse Rate [Apical] 112 H Respiratory Rate 18 29 H Respiratory Effort / Characteristics Non-Labored Spontaneous Respiratory Depth Normal Blood Pressure 95/69 L Blood Pressure [Right Arm] 122/69 Blood Pressure Mean 77 Blood Pressure Mean [Right Arm] 86 Pulse Oximetry 94 93 Oxygen Delivery Method Room Air Room Air Room Air Sepsis Recent Fever Within 48 Hours No Sepsis New/Unexplained Change in Mental Status No Sepsis Action Taken by Nursing No Action Required 02/28/23 18:24 02/28/23 19:02 02/28/23 19:30 Temperature Temperature Source Pulse Rate 116 H Pulse Rate [Apical] 105 H Respiratory Rate 18 Respiratory Effort / Characteristics Respiratory Depth Blood Pressure Blood Pressure [Right Arm] 95/60 L 125/60 Blood Pressure Mean Blood Pressure Mean [Right Arm] 71 81 Pulse Oximetry 94 Oxygen Delivery Method Room Air Sepsis Recent Fever Within 48 Hours Sepsis New/Unexplained Change in Mental Status Sepsis Action Taken by Nursing 02/28/23 20:00 02/28/23 20:52 02/28/23 21:30 Temperature Temperature Source Pulse Rate Pulse Rate [Apical] 101 H 88 87 Respiratory Rate 16 16 20 Respiratory Effort / Characteristics Respiratory Depth Blood Pressure Blood Pressure [Right Arm] 108/73 98/58 L 101/71 Blood Pressure Mean Blood Pressure Mean [Right Arm] 84 71 81 Pulse Oximetry 95 97 96 Oxygen Delivery Method Room Air Room Air Room Air Sepsis Recent Fever Within 48 Hours Sepsis New/Unexplained Change in Mental Status Sepsis Action Taken by Nursing Laboratory Data 03/01/23 05:34 03/01/23 05:34 Lab Results 02/28/23 02/28/23 02/28/23 Range/Units 18:27 18:27 18:27 WBC 9.66 (4.8-10.8) K/ul RBC 4.94 (4.70-6.10) M/uL Hgb 15.3 (14.0-18.0) g/dl POC Hgb (14.0-18.0) g/dl Hct 43.5 (42.0-52.0) % POC Hct (42-52) % MCV 88.1 (80.0-100.0) fL MCH 31.0 (25.0-34.0) pg MCHC 35.2 (32.0-36.0) g/dL RDW Std Deviation 42.7 (36.4-46.3) fL RDW Coeff of Neville 13.3 (11.5-14.5) % Plt Count 90 L (130-400) K/uL MPV 11.7 (9.4-12.4) fL Neutrophils % (Manual) 78 % Lymphocytes % (Manual) 14 % Monocytes % (Manual) 7 % Metamyelocytes % (Man) 1 % Neutrophils # (Manual) 7.53 H (1.40-6.50) K/uL Total Absolute Neuts 7.53 H (1.4-6.5) K/uL Lymphocytes # (Manual) 1.35 (1.2-3.4) K/uL Total Abs Lymphocytes 1.35 (1.2-3.4) K/uL Monocytes # (Manual) 0.68 H (0.11-0.59) K/uL Metamyelocytes # (Man) 0.10 H (0-0) K/uL Platelet Estimate Decreased L (Normal) Echinocytes 1+ PT 12.3 H (9.0-12.0) Seconds INR 1.1 (0.9-1.1) POC Sodium (135-144) mmol/L Sodium 132 L (136-145) mmol/L POC Potassium (3.3-5.0) mmol/L Potassium 3.6 (3.5-5.1) mmol/L POC Chloride (101-112) mmol/L Chloride 96 L (98-107) mmol/L Carbon Dioxide 25 (21-32) mmol/L POC Total CO2 (24-31) mmol/L Anion Gap 11 (3-11) POC Anion Gap (16-25) mmol/L POC BUN (7-18) mg/dl BUN 80 H (6-23) mg/dl Creatinine 2.00 H (0.6-1.4) mg/dl POC Creatinine (0.6-1.3) mg/dl Est Cr Clr Drug Dosing 34.4 ml/min Est GFR ( Amer) 36.2 ml/min Est GFR (Non-Af Amer) 31.3 ml/min BUN/Creatinine Ratio 40.0 H (10-20) Glucose 177 H (70-99(Fasting)) mg/dl POC Glucose (other) (70-99) mg/dl Lactate (0.4-2.0) mmol/L Calcium 8.8 (8.6-10.3) mg/dl POC Ioniz Calcium Wolf (1.12-1.32) mmol/l Magnesium 2.4 (1.7-2.4) mg/dl Total Bilirubin 2.1 H (0.2-1.0) mg/dl AST 63 H (13-39) U/L ALT 73 H (7-52) U/L Alkaline Phosphatase 73 (34-104) U/L Troponin I High Sens 46.6 H (0-20) pg/ml Total Protein 6.9 (6.0-8.3) gm/dl Albumin 3.7 (3.4-5.0) gm/dl Globulin 3.2 (2.5-4.0) gm/dl Albumin/Globulin Ratio 1.2 (0.9-2) TSH (0.300-4.500) uIu/ml Adenovirus (PCR) (NotDetected) Anaplasma Smear See Comment A Babesia Smear See Comment B. pertussis DNA (PCR) (NotDetected) B.parapertussis DNA PCR (NotDetected) Lyme Disease IgG Ab (Negative) Lyme Disease IgM Ab (Negative) C. pneumoniae DNA (PCR) (NotDetected) Coronavirus OC43 (PCR) (NotDetected) Coronavirus HKU1 (PCR) (NotDetected) Coronavirus 229E (PCR) (NotDetected) SARS-CoV-2 (PCR) (NotDetected) Coronavirus NL63 (PCR) (NotDetected) Human Metapneumovir PCR (NotDetected) Influenza Type A (PCR) (NotDetected) Influenza Type B (PCR) (NotDetected) M. pneumoniae (PCR) (NotDetected) Parainfluenza 1 (PCR) (NotDetected) Parainfluenza 2 (PCR) (NotDetected) Parainfluenza 3 (PCR) (NotDetected) Parainfluenza 4 (PCR) (NotDetected) RSV (PCR) (NotDetected) Entero/Rhino (PCR) (NotDetected) 02/28/23 02/28/23 02/28/23 Range/Units 18:27 18:27 18:34 WBC (4.8-10.8) K/ul RBC (4.70-6.10) M/uL Hgb (14.0-18.0) g/dl POC Hgb 15.6 (14.0-18.0) g/dl Hct (42.0-52.0) % POC Hct 46 (42-52) % MCV (80.0-100.0) fL MCH (25.0-34.0) pg MCHC (32.0-36.0) g/dL RDW Std Deviation (36.4-46.3) fL RDW Coeff of Neville (11.5-14.5) % Plt Count (130-400) K/uL MPV (9.4-12.4) fL Neutrophils % (Manual) % Lymphocytes % (Manual) % Monocytes % (Manual) % Metamyelocytes % (Man) % Neutrophils # (Manual) (1.40-6.50) K/uL Total Absolute Neuts (1.4-6.5) K/uL Lymphocytes # (Manual) (1.2-3.4) K/uL Total Abs Lymphocytes (1.2-3.4) K/uL Monocytes # (Manual) (0.11-0.59) K/uL Metamyelocytes # (Man) (0-0) K/uL Platelet Estimate (Normal) Echinocytes PT (9.0-12.0) Seconds INR (0.9-1.1) POC Sodium 133 L (135-144) mmol/L Sodium (136-145) mmol/L POC Potassium 3.5 (3.3-5.0) mmol/L Potassium (3.5-5.1) mmol/L POC Chloride 95 L (101-112) mmol/L Chloride (98-107) mmol/L Carbon Dioxide (21-32) mmol/L POC Total CO2 22 L (24-31) mmol/L Anion Gap (3-11) POC Anion Gap 20.0 (16-25) mmol/L POC BUN 74 H (7-18) mg/dl BUN (6-23) mg/dl Creatinine (0.6-1.4) mg/dl POC Creatinine 2.0 H (0.6-1.3) mg/dl Est Cr Clr Drug Dosing ml/min Est GFR ( Amer) ml/min Est GFR (Non-Af Amer) ml/min BUN/Creatinine Ratio (10-20) Glucose (70-99(Fasting)) mg/dl POC Glucose (other) 176 H (70-99) mg/dl Lactate (0.4-2.0) mmol/L Calcium (8.6-10.3) mg/dl POC Ioniz Calcium Wolf 1.10 L (1.12-1.32) mmol/l Magnesium (1.7-2.4) mg/dl Total Bilirubin (0.2-1.0) mg/dl AST (13-39) U/L ALT (7-52) U/L Alkaline Phosphatase (34-104) U/L Troponin I High Sens (0-20) pg/ml Total Protein (6.0-8.3) gm/dl Albumin (3.4-5.0) gm/dl Globulin (2.5-4.0) gm/dl Albumin/Globulin Ratio (0.9-2) TSH 2.008 (0.300-4.500) uIu/ml Adenovirus (PCR) Not Detected (NotDetected) Anaplasma Smear Babesia Smear B. pertussis DNA (PCR) Not Detected (NotDetected) B.parapertussis DNA PCR Not Detected (NotDetected) Lyme Disease IgG Ab (Negative) Lyme Disease IgM Ab (Negative) C. pneumoniae DNA (PCR) Not Detected (NotDetected) Coronavirus OC43 (PCR) Not Detected (NotDetected) Coronavirus HKU1 (PCR) Not Detected (NotDetected) Coronavirus 229E (PCR) Not Detected (NotDetected) SARS-CoV-2 (PCR) Not Detected (NotDetected) Coronavirus NL63 (PCR) Not Detected (NotDetected) Human Metapneumovir PCR Not Detected (NotDetected) Influenza Type A (PCR) Not Detected (NotDetected) Influenza Type B (PCR) Not Detected (NotDetected) M. pneumoniae (PCR) Not Detected (NotDetected) Parainfluenza 1 (PCR) Not Detected (NotDetected) Parainfluenza 2 (PCR) Not Detected (NotDetected) Parainfluenza 3 (PCR) Not Detected (NotDetected) Parainfluenza 4 (PCR) Not Detected (NotDetected) RSV (PCR) Not Detected (NotDetected) Entero/Rhino (PCR) Not Detected (NotDetected) 02/28/23 02/28/23 02/28/23 Range/Units 18:36 20:20 21:00 WBC (4.8-10.8) K/ul RBC (4.70-6.10) M/uL Hgb (14.0-18.0) g/dl POC Hgb (14.0-18.0) g/dl Hct (42.0-52.0) % POC Hct (42-52) % MCV (80.0-100.0) fL MCH (25.0-34.0) pg MCHC (32.0-36.0) g/dL RDW Std Deviation (36.4-46.3) fL RDW Coeff of Neville (11.5-14.5) % Plt Count (130-400) K/uL MPV (9.4-12.4) fL Neutrophils % (Manual) % Lymphocytes % (Manual) % Monocytes % (Manual) % Metamyelocytes % (Man) % Neutrophils # (Manual) (1.40-6.50) K/uL Total Absolute Neuts (1.4-6.5) K/uL Lymphocytes # (Manual) (1.2-3.4) K/uL Total Abs Lymphocytes (1.2-3.4) K/uL Monocytes # (Manual) (0.11-0.59) K/uL Metamyelocytes # (Man) (0-0) K/uL Platelet Estimate (Normal) Echinocytes PT (9.0-12.0) Seconds INR (0.9-1.1) POC Sodium (135-144) mmol/L Sodium (136-145) mmol/L POC Potassium (3.3-5.0) mmol/L Potassium (3.5-5.1) mmol/L POC Chloride (101-112) mmol/L Chloride (98-107) mmol/L Carbon Dioxide (21-32) mmol/L POC Total CO2 (24-31) mmol/L Anion Gap (3-11) POC Anion Gap (16-25) mmol/L POC BUN (7-18) mg/dl BUN (6-23) mg/dl Creatinine (0.6-1.4) mg/dl POC Creatinine (0.6-1.3) mg/dl Est Cr Clr Drug Dosing ml/min Est GFR ( Amer) ml/min Est GFR (Non-Af Amer) ml/min BUN/Creatinine Ratio (10-20) Glucose (70-99(Fasting)) mg/dl POC Glucose (other) (70-99) mg/dl Lactate 2.1 H* 1.7 (0.4-2.0) mmol/L Calcium (8.6-10.3) mg/dl POC Ioniz Calcium Wolf (1.12-1.32) mmol/l Magnesium (1.7-2.4) mg/dl Total Bilirubin (0.2-1.0) mg/dl AST (13-39) U/L ALT (7-52) U/L Alkaline Phosphatase (34-104) U/L Troponin I High Sens (0-20) pg/ml Total Protein (6.0-8.3) gm/dl Albumin (3.4-5.0) gm/dl Globulin (2.5-4.0) gm/dl Albumin/Globulin Ratio (0.9-2) TSH (0.300-4.500) uIu/ml Adenovirus (PCR) (NotDetected) Anaplasma Smear Babesia Smear B. pertussis DNA (PCR) (NotDetected) B.parapertussis DNA PCR (NotDetected) Lyme Disease IgG Ab Negative (Negative) Lyme Disease IgM Ab Positive A (Negative) C. pneumoniae DNA (PCR) (NotDetected) Coronavirus OC43 (PCR) (NotDetected) Coronavirus HKU1 (PCR) (NotDetected) Coronavirus 229E (PCR) (NotDetected) SARS-CoV-2 (PCR) (NotDetected) Coronavirus NL63 (PCR) (NotDetected) Human Metapneumovir PCR (NotDetected) Influenza Type A (PCR) (NotDetected) Influenza Type B (PCR) (NotDetected) M. pneumoniae (PCR) (NotDetected) Parainfluenza 1 (PCR) (NotDetected) Parainfluenza 2 (PCR) (NotDetected) Parainfluenza 3 (PCR) (NotDetected) Parainfluenza 4 (PCR) (NotDetected) RSV (PCR) (NotDetected) Entero/Rhino (PCR) (NotDetected) Administered Medications Doxycycline Hyclate (Doxycycline Hyclate 100 Mg Cap) 100 mg PO BID [facility] Stop: 03/11/23 08:59 Last Admin: 03/01/23 10:01 Dose: 100 mg Documented By: Famotidine (Famotidine 20 Mg Tab) 20 mg PO DAILY [facility] Stop: 03/31/23 08:59 Last Admin: 03/01/23 10:02 Dose: 20 mg Documented By: ENS Ferrous Gluconate (Ferrous Gluconate 324 Mg Tab) 324 mg PO DAILY [facility] Stop: 03/31/23 08:59 Last Admin: 03/01/23 10:02 Dose: 324 mg Documented By: Heparin Sodium/Dextrose (Heparin Sodium/Dextrose) 25,000 units in 500 mls @ 28 mls/hr IV .[id number] NEGIN; Protocol Stop: 03/30/23 21:59 Last Admin: 03/01/23 17:32 Dose: 1,400 units/hr, 28 mls/hr Documented By: Co-signed By: JOHNNY Titration: 03/01/23 17:25 Dose: 1,400 units/hr, 28 mls/hr Documented By: Co-signed By: JOHNNY Titration: 03/01/23 07:03 Dose: 1,400 units/hr, 28 mls/hr Documented By: Co-signed By: DARIAN Admin: 02/28/23 23:33 Dose: 1,400 units/hr, 28 mls/hr Documented By: DARIAN Co-signed By: WANDA Metoprolol Succinate (Metoprolol Succ 25mg Ext Rel Tab) 25 mg PO QAM NEGIN Stop: 03/31/23 08:59 Last Admin: 03/01/23 10:28 Dose: Not Given Documented By: Multivitamins (Multivitamin Tab) 1 tab PO DAILY NEGIN Stop: 03/31/23 08:59 Last Admin: 03/01/23 10:02 Dose: 1 tab Documented By: Senna/Docusate Sodium (Docusate Sodium/Senna 50/8.6mg Tab) 1 tab PO BID NEGIN Stop: 03/31/23 08:59 Last Admin: 03/01/23 10:01 Dose: 1 tab Documented By: Discontinued Medications Benzonatate (Benzonatate 100 Mg Capsule) 100 mg PO NOW ONE Stop: 02/28/23 21:39 Last Admin: 02/28/23 22:16 Dose: 100 mg Documented By: NADINE Sodium Chloride (Nss) 500 mls @ 999 mls/hr IV .Q31M STA Stop: 02/28/23 18:49 Last Infusion: 02/28/23 19:30 Dose: 0 mls/hr Documented By: Admin: 02/28/23 18:43 Dose: 999 mls/hr Documented By: RAMÓN Sodium Chloride (Nss 1000ml) 1,000 mls @ 999 mls/hr IV .Q1H1M ONE Stop: 02/28/23 20:29 Last Infusion: 02/28/23 21:02 Dose: 0 mls/hr Documented By: Admin: 02/28/23 20:01 Dose: 999 mls/hr Documented By: NADINE Doxycycline Hyclate 100 mg/ (Dextrose) 110 mls @ 50 mls/hr IV NOW STA Stop: 02/28/23 22:11 Last Infusion: 02/28/23 23:27 Dose: 0 mls/hr Documented By: Admin: 02/28/23 21:10 Dose: 50 mls/hr Documented By: NADINE Lactated Ringer's (Lr) 1,000 mls @ 75 mls/hr IV .[id number] ONE Stop: 03/01/23 10:19 Last Infusion: 03/01/23 10:35 Dose: 0 mls/hr Documented By: Admin: 02/28/23 21:10 Dose: 75 mls/hr Documented By: NADINE Sodium Chloride (Nss 1000ml) 1,000 mls @ 999 mls/hr IV .Q1H1M ONE Stop: 02/28/23 22:14 Last Admin: 02/28/23 21:34 Dose: Not Given Documented By: NADINE Polyethylene Glycol (Polyethylene (Miralax) 17 Gm Pack) 17 gm PO NOW STA Stop: 02/28/23 21:39 Last Admin: 02/28/23 22:16 Dose: 17 gm Documented By: NADINE Potassium Chloride (Potassium Chloride Crtab 20 Meq Tabcr) 40 meq PO NOW STA Stop: 02/28/23 21:34 Last Admin: 02/28/23 22:15 Dose: 40 meq Documented By: NADINE Potassium Chloride (Potassium Chloride Crtab 20 Meq Tabcr) 40 meq PO NOW STA Stop: 03/01/23 07:53 Last Admin: 03/01/23 10:00 Dose: 40 meq Documented By: Senna/Docusate Sodium (Docusate Sodium/Senna 50/8.6mg Tab) 1 tab PO NOW STA Stop: 02/28/23 21:39 Last Admin: 02/28/23 22:16 Dose: 1 tab Documented By: NADINE Discharge Plan Visit Data Chief Complaint: Cardiac Assessment Stated Complaint: HYPOTENSION, ABDOMINAL PAIN, CONSTIPATION ED Provider: Adam Barbosa Discharge Problem: Atrial fibrillation with rapid ventricular response, Generalized abdominal pain, Non-productive cough, Anaplasmosis, Acute Lyme disease Patient Disposition: Admitted As Inpatient Discharge Instructions Interventions: ED Discharge Assessment Last Done: 02/28/23 22:32
[2023-02-28 18:46] LABS: iSTAT Hemoglobin 15.6 g/dl (14.0-18.0); iSTAT Ionized Calcium 1.1 mmol/l (1.12-1.32); iSTAT Potassium 3.5 mmol/L (3.3-5.0)
[2023-02-28 19:02] LABS: Albumin Globulin Ratio 1.2 (0.9-2); Albumin Level 3.7 gm/dl (3.4-5.0); Bilirubin,Total 2.1 mg/dl (0.2-1.0); Calcium 8.8 mg/dl (8.6-10.3); Creatinine Clr Calc Pharmacy 34.4 ml/min; Est GFR (African American) 36.2 ml/min; Est GFR (Non-African American) 31.3 ml/min; Globulin 3.2 gm/dl (2.5-4.0); Magnesium 2.4 mg/dl (1.7-2.4); Potassium 3.6 mmol/L (3.5-5.1); Total Protein 6.9 gm/dl (6.0-8.3)
[2023-02-28 19:09] LABS: Troponin I High Sensitivity 46.6 pg/ml (0-20)
[2023-02-28 19:12] LABS: INR 1.1 (0.9-1.1); Prothrombin Time 12.3 Seconds (9.0-12.0)
[2023-02-28 19:29] LABS: Adenovirus PCR Not Detected (NotDetected); Bordetella parapertussis PCR Not Detected (NotDetected); Bordetella pertussis PCR Not Detected (NotDetected); Chlamydia pneumoniae PCR Not Detected (NotDetected); Coronavirus 229E PCR Not Detected (NotDetected); Coronavirus CoV-2 (COVID19)PCR Not Detected (NotDetected); Coronavirus HKU1 PCR Not Detected (NotDetected); Coronavirus NL63 PCR Not Detected (NotDetected); Coronavirus OC43PCR Not Detected (NotDetected); Human Metapneumovirus PCR Not Detected (NotDetected); Influenza A PCR Not Detected (NotDetected); Influenza B PCR Not Detected (NotDetected); Mycoplasma pneumoniae PCR Not Detected (NotDetected); Parainfluenza Virus 1 PCR Not Detected (NotDetected); Parainfluenza Virus 2 PCR Not Detected (NotDetected); Parainfluenza Virus 3 PCR Not Detected (NotDetected); Parainfluenza Virus 4 PCR Not Detected (NotDetected); Respiratory Syncytial VirusPCR Not Detected (NotDetected); Rhinovirus/Enterovirus PCR Not Detected (NotDetected)
[2023-02-28] MEDS ORDERED: SODIUM CHLORIDE 0.9% 1000ML 1,000 ML IV ONE ×2 (19:29→21:14)
--- NOTE | 2023-02-28 19:32 | XRay Report ---
XR chest 1V portable CLINICAL HISTORY: Dysrhythmia TECHNIQUE: Single frontal radiograph of the chest was obtained. Comparison: Comparison is made to 03/20/2020 FINDINGS: No lines and tubes are seen. The cardiomediastinal silhouette is stable. The lungs are clear. No evid ence of pleural effusion or pneumothorax. IMPRESSION: No acute chest disease. ACT 112: Negative or not required by law. Electronically signed by: Morgan Crockett M.D. 02/28/2023 7:31 PM
[2023-02-28 19:48] LABS: Hematocrit (blood only) 43.5 % (42.0-52.0); Hemoglobin 15.3 g/dl (14.0-18.0); Mean Corpuscular Hgb Conc 35.2 g/dL (32.0-36.0); Mean Corpuscular Volume 88.1 fL (80.0-100.0); Mean Platelet Volume 11.7 fL (9.4-12.4); Platelet Count 90 K/uL (130-400); RDW Coefficient of Variation 13.3 % (11.5-14.5); RDW Standard Deviation 42.7 fL (36.4-46.3); Red Blood Count 4.94 M/uL (4.70-6.10); White Blood Count 9.66 K/ul (4.8-10.8)
[2023-02-28] MEDS ORDERED: DOXYCYCLINE HYCLATE 100 MG in DEXTROSE 5% 100 ML IV STA (20:00)
[2023-02-28 20:01] LABS: ALC (manual) 1.35 K/uL (1.2-3.4); ANC (manual) 7.53 K/uL (1.4-6.5); Echinocytes 1+; Lymphocytes # (manual) 1.35 K/uL (1.2-3.4); Lymphocytes % (manual) 14 %; Metamyelocytes % (manual) 1 %; Monocytes # (manual) 0.68 K/uL (0.11-0.59); Monocytes % (manual) 7 %; Neutrophils # (manual) 7.53 K/uL (1.40-6.50); Neutrophils % (manual) 78 %; Platelet Estimate Decreased (Normal)
--- NOTE | 2023-02-28 20:32 | CT Scan Report ---
CT abd pelvis wo con CLINICAL HISTORY: abd pain, elevated lactate, lfts TECHNIQUE: Helical axial images of the abdomen and pelvis were obtained. Automated dose lowering tech niques and/or adjustment according to patient size were utilized for this exam. This exam was perfor med without intravenous contrast. CT DOSE: 1081.14 mGy.cm COMPARISON: None available at the time of this dictation. FINDINGS: Lower chest: Bibasilar atelectasis versus scarring is seen. Cardiomegaly is seen. Liver: Unremarkable. No focal lesions are seen. Gallbladder and biliary tree: No calcified gallstones. Normal caliber wall. No intra- or extrahepatic biliary ductal dilation. Pancreas: Unremarkable, no focal lesions. Spleen: Unremarkable. Adrenals: Bilateral adrenal gland thickening is again seen. Kidneys and ureters: Renal cysts are seen. Milk of calcium is noted in a left renal cyst. Nonobstruct siva stones are seen bilaterally. Bladder: Unremarkable. Reproductive organs: Prostatomegaly is seen. Bowel: Diverticulosis is seen without evidence of diverticulitis. The appendix is normal. Lymph nodes Retroperitoneal: Unremarkable. Pelvic: Unremarkable. Mesenteric: Unremarkable. Peritoneum: Normal. Vessels: Atherosclerotic calcifications are seen. Abdominal wall: Unremarkable. Bones: Degenerative changes in the visualized spine. IMPRESSION: 1. No acute abnormalities are seen. 2. Nonobstructive nephrolithiasis is seen bilaterally. 3. Diverticulosis without diverticulitis 4. Prostatomegaly. 5. Additional findings as above. ACT 112: Negative or not required by law. Electronically signed by: Morgan Crockett M.D. 02/28/2023 8:30 PM
[2023-02-28] MEDS ORDERED: LACTATED RINGER'S 1,000 ML IV ONE (21:00)
--- NOTE | 2023-02-28 21:08 | Ultrasound Report ---
Exam(s): US GALLBLADDER EXAM: US Abdomen Limited, Gallbladder CLINICAL HISTORY: Reason for exam: abd pain, elevated LFTs. TECHNIQUE: Real-time ultrasound of the right upper quadrant with image documentation. COMPARISON: No relevant prior studies available. FINDINGS: Liver: Hepatic steatosis. Gallbladder: Unremarkable. No gallbladder wall thickening or pericholecystic fluid. No gallstones. Common bile duct: Unremarkable as visualized. No stones. No dilation. Normal, 5 mm common bile duct. Pancreas: Unremarkable as visualized. Right kidney: RIGHT upper pole renal cyst measures 2.8 x 3.1 x 2.4 cm. IMPRESSION: 1. Hepatic steatosis. 2. RIGHT upper pole renal cyst measures 2.8 x 3.1 x 2.4 cm. Electronically signed by: Jean-Pierre Tadeo MD 02/28/23 21:06 PM
[2023-02-28] MEDS ORDERED: POTASSIUM CHLORIDE CRTAB 20 MEQ TABCR PO STA (21:33)
[2023-02-28] MEDS ORDERED: Heparin IV Adult Wt-Based Standard *NO* Bolus Protocol IV SCH (21:34)
--- NOTE | 2023-02-28 21:34 | History & Physical Report ---
Date of Service February 28, 2023 Assessment & Plan (1) Atrial fibrillation with rapid ventricular response: Plan: Recurrent A-fib secondary to hypovolemia, ARF secondary to tickborne infection Troponin elevation secondary to A-fib in the setting of kidney dysfunction transaminitis, thrombocytopenia secondary to tickborne infection chronic diastolic heart failure (EF 70%, TTE 2022), patient on the dry side valvular heart disease (moderate , mild MR), [facility] [place] end of the month for bicuspid aortic valve stenosis hx PVD hyperlipidemia, on statin Rx prediabetes, hemoglobin A1c of 5.9 last February 2023 PCU Titrate home beta-nati once BP stable Digoxin dose if heart rate uncontrolled if BP borderline IV heparin for thromboembolic prophylaxis TTE, Cardiology consult Re: Recurrent A-fib Monitor creatinine response to IVF, appropriate to hold home diuretic for now Doxycycline for tickborne infection DVT prophylaxis. IV heparin Full code Text document was generated using Mobile [employer] voice recognition software. It may contain grammatical or spelling errors. Kindly contact undersigned for clarification of any documentation item in question. History of Present Illness Chief Complaint: Fatigue, arrhythmia Primary Care Provider: Omid Walls DO History obtained from patient and records. Medical history significant for chronic diastolic heart failure (EF 70%, TTE 2022), PAF, valvular heart disease (moderate , mild MR), PVD, hypertension, hyperlipidemia, prediabetes. Last confinement March 2020 for syncope attributed to orthostasis. Patient recalls history of A-fib about 50 years ago precipitated by cold exposure. Remembers being given digoxin medication. Not sure about blood thinners. Patient not feeling well the last few weeks. Poor appetite, dry cough. Patient completed COVID-19 vaccination. Not sure about COVID-19 contacts. No chest pain, no SOB. Mild abdominal discomfort with constipation symptoms. Possible tick exposure. Patient seen at weekend clinic today. SBP noted to be 90s. A-fib RVR on EKG. Patient directed to ER for evaluation. Doxycycline administered at the ER for tickborne infection. Medical History as above Surgical History : Abdominal wall subcutaneous tumor removal, cystoscopy, dental surgery, tonsillectomy, TURP, umbilical hernia repair Family History : DM, heart disease, stroke Personal/Social history : Non-smoker, EtOH intake, businessman Allergies Allergy/AdvReac Type Severity Reaction Status Date / Time bee venom protein (honey bee) Allergy Severe Anaphylaxis--PER Verified 02/28/23 18:51 GMG "HYPOTENSIVE EPISODE" Home Medications Medication Instructions Recorded Confirmed Type fluticasone propionate 50 2 spray intranasal DAILY PRN 08/04/18 02/28/23 History mcg/actuation nasal Allergy Symptoms spray,suspension (Flonase Allergy Relief) hydrochlorothiazide 12.5 mg tablet 12.5 mg PO QAM 08/04/18 02/28/23 History metoprolol succinate 25 mg 25 mg PO QAM 08/04/18 02/28/23 History tablet,extended release 24 hr simvastatin 20 mg tablet 20 mg PO QPM 08/04/18 02/28/23 History epinephrine 0.3 mg/0.3 mL 0.3 mg IM DIRECTED PRN Allergic 03/20/20 02/28/23 History injection, auto-injector (EpiPen) Reaction ascorbic acid (vitamin C) 1,000 mg 1 g PO QAM 11/18/22 02/28/23 History capsule cholecalciferol (vitamin D3) 25 25 mcg PO QPM 11/18/22 02/28/23 History mcg (1,000 unit) capsule famotidine 20 mg tablet 20 mg PO DAILY 11/18/22 02/28/23 History ferrous gluconate 240 mg (27 mg 240 mg PO DAILY 11/18/22 02/28/23 History iron) tablet (Ferate) fluoride (sodium) 1.1 % dental 1 applic dental DAILY 11/18/22 02/28/23 History paste (PreviDent 5000 Dry Mouth) multivitamin 1 tab PO DAILY 11/18/22 02/28/23 History zinc acetate 50 mg (zinc) capsule 50 mg PO DAILY 11/18/22 02/28/23 History (Galzin) acetaminophen 500 mg tablet 1,000 mg PO Q6H PRN PAIN/FEVER 02/28/23 02/28/23 History (Tylenol Extra Strength) amoxicillin 500 mg capsule 500 mg PO DIRECTED PRN PRIOR TO 02/28/23 02/28/23 History DENTAL PROCEDURES docusate sodium 100 mg capsule 100 mg PO BID PRN Constipation 02/28/23 02/28/23 History ondansetron 4 mg disintegrating 4 mg PO Q8H PRN NAUSEA/VOMITING 02/28/23 02/28/23 History tablet Past Med/Surg History Medical History (Updated 02/28/23 @ 18:37 by Adam Barbosa MD) Aortic stenosis Cardiac murmur CONGENITAL Degenerative disc disease History of pneumonia History of umbilical hernia Hyperlipidemia Hypertension Osteoarthritis Paroxysmal atrial fibrillation Surgical History History of cataract surgery RT History of colonoscopy History of herniorrhaphy History of surgery TUNA History of tonsillectomy History of tooth extraction Family History Other Cancer Heart disease Social History Smoking Status: Never smoker Second Hand Exposure: No; Do You Dip or Chew Tobacco: No; Hx Alcohol Use: No Hx Substance Use: No Preferred Language: Bruneian Communication Ability: Effective Medicare Coordinator Required: No Beliefs That Will Affect Care: None Current Living Situation: Spouse Other Information That Helps Us Care for You: No Feels Safe at Home: Yes Safety Concerns: Feels Safe At This Time Assistive Devices: Glasses Review of Systems Review of Systems: As per HPI, all other systems reviewed and negative Physical Exam Physical Exam: GENERAL: Comfortable, pleasant, incessant dry cough symptoms, obese, no respiratory distress SKIN: Normal color, warm HEENT: [place] palpebral conjunctivae, no ptosis, dry buccal mucosa NECK : Supple, short neck, no tenderness CHEST : CTA, no tenderness HEART : Irregular, systolic murmur ABDOMEN: Some distention, nontender EXTREMITIES : No LE swelling/tenderness, no other conspicuous deformities noted NEUROLOGIC : Coherent, no facial asymmetry, no other gross focality Results & Data Results & Data Vital Signs (Past 12 Hours) Vital Signs Temp Pulse Pulse Resp BP BP Pulse Ox 02/28/23 20:52 88 16 98/58 L 97 02/28/23 20:00 101 H 16 108/73 95 02/28/23 19:30 125/60 02/28/23 19:02 105 H 18 95/60 L 94 02/28/23 18:24 116 H 02/28/23 18:23 112 H 29 H 122/69 93 02/28/23 18:15 02/28/23 18:11 36.8 C 114 H 18 95/69 L 94 O2 Del Method 02/28/23 20:52 Room Air 02/28/23 20:00 Room Air 02/28/23 19:30 02/28/23 19:02 Room Air 02/28/23 18:24 02/28/23 18:23 Room Air 02/28/23 18:15 Room Air 02/28/23 18:11 Room Air Laboratory Results Laboratory Results WBC 9.66 K/ul (4.8-10.8) 02/28/23 18: RBC 4.94 M/uL (4.70-6.10) 02/28/23 18:27 Hgb 15.3 g/dl (14.0-18.0) 02/28/23 18: POC Hgb 15.6 g/dl (14.0-18.0) 02/28/23 18:34 Hct 43.5 % (42.0-52.0) 02/28/23 18: POC Hct 46 % (42-52) 02/28/23 18: MCV 88.1 fL (80.0-100.0) 02/28/23 18: MCH 31.0 pg (25.0-34.0) 02/28/23 18: MCHC 35.2 g/dL (32.0-36.0) 02/28/23 18: RDW Std Deviation 42.7 fL (36.4-46.3) 02/28/23 18: RDW Coeff of Neville 13.3 % (11.5-14.5) 02/28/23 18: Plt Count 90 K/uL (130-400) L 02/28/23 18: MPV 11.7 fL (9.4-12.4) 02/28/23 18: Neutrophils % (Manual) 78 % 02/28/23 18: Lymphocytes % (Manual) 14 % 02/28/23 18: Monocytes % (Manual) 7 % 02/28/23 18: Metamyelocytes % (Man) 1 % 02/28/23 18: Neutrophils # (Manual) 7.53 K/uL (1.40-6.50) H 02/28/23 18:27 Total Absolute Neuts 7.53 K/uL (1.4-6.5) H 02/28/23 18: Lymphocytes # (Manual) 1.35 K/uL (1.2-3.4) 02/28/23 18:27 Total Abs Lymphocytes 1.35 K/uL (1.2-3.4) 02/28/23 18: Monocytes # (Manual) 0.68 K/uL (0.11-0.59) H 02/28/23 18:27 Metamyelocytes # (Man) 0.10 K/uL (0-0) H 02/28/23 18: Platelet Estimate Decreased (Normal) L 02/28/23 18: Echinocytes 1+ 02/28/23 18: PT 12.3 Seconds (9.0-12.0) H 02/28/23 18: INR 1.1 (0.9-1.1) 02/28/23 18: POC Sodium 133 mmol/L (135-144) L 02/28/23 18:34 Sodium 132 mmol/L (136-145) L 02/28/23 18: POC Potassium 3.5 mmol/L (3.3-5.0) 02/28/23 18:34 Potassium 3.6 mmol/L (3.5-5.1) 02/28/23 18: POC Chloride 95 mmol/L (101-112) L 02/28/23 18:34 Chloride 96 mmol/L (98-107) L 02/28/23 18: Carbon Dioxide 25 mmol/L (21-32) 02/28/23 18: POC Total CO2 22 mmol/L (24-31) L 02/28/23 18:34 Anion Gap 11 (3-11) 02/28/23 18: POC Anion Gap 20.0 mmol/L (16-25) 02/28/23 18:34 POC BUN 74 mg/dl (7-18) H 02/28/23 18:34 BUN 80 mg/dl (6-23) H 02/28/23 18: Creatinine 2.00 mg/dl (0.6-1.4) H 02/28/23 18: POC Creatinine 2.0 mg/dl (0.6-1.3) H 02/28/23 18:34 Est Cr Clr Drug Dosing 34.4 ml/min 02/28/23 18: Est GFR ( Amer) 36.2 ml/min 02/28/23 18: Est GFR (Non-Af Amer) 31.3 ml/min 02/28/23 18: BUN/Creatinine Ratio 40.0 (10-20) H 02/28/23 18: Glucose 177 mg/dl (70-99(Fasting)) H 02/28/23 18: POC Glucose (other) 176 mg/dl (70-99) H 02/28/23 18:34 Lactate 1.7 mmol/L (0.4-2.0) 02/28/23 20:20 Calcium 8.8 mg/dl (8.6-10.3) 02/28/23 18: POC Ioniz Calcium Wolf 1.10 mmol/l (1.12-1.32) L 02/28/23 18: Magnesium 2.4 mg/dl (1.7-2.4) 02/28/23 18: Total Bilirubin 2.1 mg/dl (0.2-1.0) H 02/28/23 18: AST 63 U/L (13-39) H 02/28/23 18: ALT 73 U/L (7-52) H 02/28/23 18: Alkaline Phosphatase 73 U/L (34-104) 02/28/23 18: Troponin I High Sens 46.6 pg/ml (0-20) H 02/28/23 18: Total Protein 6.9 gm/dl (6.0-8.3) 02/28/23 18: Albumin 3.7 gm/dl (3.4-5.0) 02/28/23 18: Globulin 3.2 gm/dl (2.5-4.0) 02/28/23 18: Albumin/Globulin Ratio 1.2 (0.9-2) 02/28/23 18: TSH 2.008 uIu/ml (0.300-4.500) 02/28/23 18: Adenovirus (PCR) Not Detected (NotDetected) 02/28/23 18: Anaplasma Smear See Comment A 02/28/23 18: Babesia Smear See Comment 02/28/23 18: B. pertussis DNA (PCR) Not Detected (NotDetected) 02/28/23 18: B.parapertussis DNA PCR Not Detected (NotDetected) 02/28/23 18:27 C. pneumoniae DNA (PCR) Not Detected (NotDetected) 02/28/23 18:27 Coronavirus OC43 (PCR) Not Detected (NotDetected) 02/28/23 18:27 Coronavirus HKU1 (PCR) Not Detected (NotDetected) 02/28/23 18:27 Coronavirus 229E (PCR) Not Detected (NotDetected) 02/28/23 18:27 SARS-CoV-2 (PCR) Not Detected (NotDetected) 02/28/23 18:27 Coronavirus NL63 (PCR) Not Detected (NotDetected) 02/28/23 18:27 Human Metapneumovir PCR Not Detected (NotDetected) 02/28/23 18:27 Influenza Type A (PCR) Not Detected (NotDetected) 02/28/23 18:27 Influenza Type B (PCR) Not Detected (NotDetected) 02/28/23 18:27 M. pneumoniae (PCR) Not Detected (NotDetected) 02/28/23 18:27 Parainfluenza 1 (PCR) Not Detected (NotDetected) 02/28/23 18:27 Parainfluenza 2 (PCR) Not Detected (NotDetected) 02/28/23 18:27 Parainfluenza 3 (PCR) Not Detected (NotDetected) 02/28/23 18:27 Parainfluenza 4 (PCR) Not Detected (NotDetected) 02/28/23 18:27 RSV (PCR) Not Detected (NotDetected) 02/28/23 18:27 Entero/Rhino (PCR) Not Detected (NotDetected) 02/28/23 18:27 Impressions Chest X-Ray 02/28/23 18:20 XR chest 1V portable CLINICAL HISTORY: Dysrhythmia TECHNIQUE: Single frontal radiograph of the chest was obtained. Comparison: Comparison is made to 03/20/2020 FINDINGS: No lines and tubes are seen. The cardiomediastinal silhouette is stable. The lungs are clear. No evidence of pleural effusion or pneumothorax. IMPRESSION: No acute chest disease. ACT 112: Negative or not required by law. Electronically signed by: Morgan Crockett M.D. 02/28/2023 7:31 PM Abdomen/Pelvis CT 02/28/23 19:27 CT abd pelvis wo con CLINICAL HISTORY: abd pain, elevated lactate, lfts TECHNIQUE: Helical axial images of the abdomen and pelvis were obtained. Automated dose lowering techniques and/or adjustment according to patient size were utilized for this exam. This exam was performed without intravenous contrast. CT DOSE: 1081.14 mGy.cm COMPARISON: None available at the time of this dictation. FINDINGS: Lower chest: Bibasilar atelectasis versus scarring is seen. Cardiomegaly is seen. Liver: Unremarkable. No focal lesions are seen. Gallbladder and biliary tree: No calcified gallstones. Normal caliber wall. No intra- or extrahepatic biliary ductal dilation. Pancreas: Unremarkable, no focal lesions. Spleen: Unremarkable. Adrenals: Bilateral adrenal gland thickening is again seen. Kidneys and ureters: Renal cysts are seen. Milk of calcium is noted in a left renal cyst. Nonobstructive stones are seen bilaterally. Bladder: Unremarkable. Reproductive organs: Prostatomegaly is seen. Bowel: Diverticulosis is seen without evidence of diverticulitis. The appendix is normal. Lymph nodes Retroperitoneal: Unremarkable. Pelvic: Unremarkable. Mesenteric: Unremarkable. Peritoneum: Normal. Vessels: Atherosclerotic calcifications are seen. Abdominal wall: Unremarkable. Bones: Degenerative changes in the visualized spine. IMPRESSION: 1. No acute abnormalities are seen. 2. Nonobstructive nephrolithiasis is seen bilaterally. 3. Diverticulosis without diverticulitis 4. Prostatomegaly. 5. Additional findings as above. ACT 112: Negative or not required by law. Electronically signed by: Morgan Crockett M.D. 02/28/2023 8:30 PM Gallbladder Ultrasound 02/28/23 20:00 Exam(s): US GALLBLADDER EXAM: US Abdomen Limited, Gallbladder CLINICAL HISTORY: Reason for exam: abd pain, elevated LFTs. TECHNIQUE: Real-time ultrasound of the right upper quadrant with image documentation. COMPARISON: No relevant prior studies available. FINDINGS: Liver: Hepatic steatosis. Gallbladder: Unremarkable. No gallbladder wall thickening or pericholecystic fluid. No gallstones. Common bile duct: Unremarkable as visualized. No stones. No dilation. Normal, 5 mm common bile duct. Pancreas: Unremarkable as visualized. Right kidney: RIGHT upper pole renal cyst measures 2.8 x 3.1 x 2.4 cm. IMPRESSION: 1. Hepatic steatosis. 2. RIGHT upper pole renal cyst measures 2.8 x 3.1 x 2.4 cm. Electronically signed by: Jean-Pierre Tadeo MD 02/28/23 21:06 PM Diagnostic Findings EKG as per my interpretation : Rate 160, A-fib, LAD, LAFB, LVH, no ischemia, PVCs
[2023-02-28] MEDS ORDERED: BENZONATATE 100 MG CAPSULE PO ONE (21:38)
[2023-02-28] MEDS ORDERED: POLYETHYLENE (MIRALAX) 17 GM PACK PO STA (21:38)
[2023-02-28] MEDS ORDERED: DOCUSATE SODIUM/SENNA 50/8.6MG TAB PO STA (21:38)
[2023-02-28 22:00] LABS: Lyme Ab IgG w/WB Rflx Negative (Negative)
[2023-02-28 22:02] LABS: Lyme Ab IgM w/WB Rflx Positive (Negative)
[2023-02-28 22:28] LABS: Partial Thromboplastin Time 29.4 Seconds (21.0-31.0)
[2023-02-28] MEDS ORDERED: traMADol HCL 50 MG TABLET PO PRN (22:54)
[2023-02-28] MEDS ORDERED: FLUTICASONE PROPIONATE NA SPR 16 GM BTL PRN (22:54)
[2023-02-28] MEDS ORDERED: ACETAMINOPHEN 325 MG TAB PO PRN (22:54)
[2023-02-28] MEDS ORDERED: BENZONATATE 100 MG CAPSULE PO PRN (22:54)
[2023-02-28] MEDS: HEPARIN SODIUM/DEXTROSE 25,000 UNITS/500 ML BAG IV SCH (23:33)
[2023-03-01] MEDS ORDERED: ACETAMINOPHEN 500 MG TAB PO PRN (00:06)
[2023-03-01 06:54] LABS: Hematocrit (blood only) 35.5 % (42.0-52.0); Hemoglobin 12.6 g/dl (14.0-18.0); Mean Corpuscular Hemoglobin 30.8 pg (25.0-34.0); Mean Corpuscular Hgb Conc 35.5 g/dL (32.0-36.0); Mean Corpuscular Volume 86.8 fL (80.0-100.0); Platelet Count 85 K/uL (130-400); RDW Coefficient of Variation 13.4 % (11.5-14.5); RDW Standard Deviation 42.4 fL (36.4-46.3); Red Blood Count 4.09 M/uL (4.70-6.10); White Blood Count 8.49 K/ul (4.8-10.8)
[2023-03-01 06:59] LABS: BUN Creatinine Ratio 49.2 (10-20); Bilirubin Direct 0.4 mg/dl (0-0.2); Bilirubin,Total 1.4 mg/dl (0.2-1.0); Calcium 7.9 mg/dl (8.6-10.3); Creatinine Clr Calc Pharmacy 57.5 ml/min; Est GFR (African American) 67.2 ml/min; Potassium 3.4 mmol/L (3.5-5.1); Total Protein 5.4 gm/dl (6.0-8.3)
[2023-03-01 07:38] LABS: ALC (manual) 3.31 K/uL (1.2-3.4); ANC (manual) 4.33 K/uL (1.4-6.5); Lymphocytes # (manual) 1.36 K/uL (1.2-3.4); Lymphocytes % (manual) 16 %; Monocytes # (manual) 0.76 K/uL (0.11-0.59); Monocytes % (manual) 9 %; Neutrophils # (manual) 4.33 K/uL (1.40-6.50); Neutrophils % (manual) 51 %; Polychromasia 1+; Reactive Lymphocytes # (manual) 1.95 K/uL; Reactive Lymphocytes % (manual) 23 %
[2023-03-01] MEDS ORDERED: POTASSIUM CHLORIDE CRTAB 20 MEQ TABCR PO STA (07:52)
[2023-03-01 08:36] LABS: Magnesium 2.3 mg/dl (1.7-2.4); Phosphorus 2.7 mg/dl (2.5-4.9)
[2023-03-01] MEDS ORDERED: FLUORIDE 1.1% DT SCH (09:00)
[2023-03-01 09:01] LABS: Partial Thromboplastin Ratio 1.9; Partial Thromboplastin Time 52.6 Seconds (21.0-31.0)
[2023-03-01] MEDS: DOCUSATE SODIUM/SENNA 50/8.6MG TAB PO SCH ×2 (10:01→20:32)
[2023-03-01] MEDS: DOXYCYCLINE HYCLATE 100 MG CAP PO SCH ×2 (10:01→20:32)
[2023-03-01] MEDS: FAMOTIDINE 20 MG TAB PO SCH (10:02)
[2023-03-01] MEDS: MULTIVITAMIN TAB PO SCH (10:02)
[2023-03-01] MEDS: FERROUS GLUCONATE 324 MG TAB PO SCH (10:02)
[2023-03-01] MEDS: METOPROLOL SUCC 25MG EXT REL TAB PO SCH (10:28)
--- NOTE | 2023-03-01 11:46 | Cardiology Consultation ---
Date of Consultation March 01, 2023 Assessment & Plan (1) Atrial fibrillation with rapid ventricular response: (2) Aortic stenosis: (3) Acute Lyme disease: Plan The patient is currently clinically stable. He is in a rate controlled atrial fibrillation and I would continue his current medications of metoprolol and heparin. In regard to his fatigue and not feeling well with a 20 pound weight loss, he has had a positive Lyme's titer and started on doxycycline. In the next week or 2 he is to have open heart surgery for aortic valve replacement and therefore I think it would be reasonable for us to have an infectious disease consult from [facility]. Also to note is that he has had an elevated PSA. History of Present Illness Attending Physician: Chuyita Soto MD History of Present Illness This is a 77-year-old male patient who has been followed by Dr. Aquino through our clinic with a history of severe aortic stenosis. He has been seen by ca rdiothoracic surgery at [facility] and is scheduled to have OHS later this month. The patient states that over the past several months he has not felt well. He has had fatigue and a 20 pound weight loss. He went to see his PCP and they noted on an EKG that he was in newly discovered atrial fibrillation. Heart rates were fairly well controlled and in the low 100s. 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 He has been started on dioxin cycling. He remains in atrial fibrillation with controlled heart rate on IV heparin. Allergies Allergy/AdvReac Type Severity Reaction Status Date / Time bee venom protein (honey bee) Allergy Severe Anaphylaxis--PER Verified 02/28/23 18:51 GMG "HYPOTENSIVE EPISODE" Home Medications Medication Instructions Recorded Confirmed Type fluticasone propionate 50 2 spray intranasal DAILY PRN 08/04/18 02/28/23 History mcg/actuation nasal Allergy Symptoms spray,suspension (Flonase Allergy Relief) hydrochlorothiazide 12.5 mg tablet 12.5 mg PO QAM 08/04/18 02/28/23 History metoprolol succinate 25 mg 25 mg PO QAM 08/04/18 02/28/23 History tablet,extended release 24 hr simvastatin 20 mg tablet 20 mg PO QPM 08/04/18 02/28/23 History epinephrine 0.3 mg/0.3 mL 0.3 mg IM DIRECTED PRN Allergic 03/20/20 02/28/23 History injection, auto-injector (EpiPen) Reaction ascorbic acid (vitamin C) 1,000 mg 1 g PO QAM 11/18/22 02/28/23 History capsule cholecalciferol (vitamin D3) 25 25 mcg PO QPM 11/18/22 02/28/23 History mcg (1,000 unit) capsule famotidine 20 mg tablet 20 mg PO DAILY 11/18/22 02/28/23 History ferrous gluconate 240 mg (27 mg 240 mg PO DAILY 11/18/22 02/28/23 History iron) tablet (Ferate) fluoride (sodium) 1.1 % dental 1 applic dental DAILY 11/18/22 02/28/23 History paste (PreviDent 5000 Dry Mouth) multivitamin 1 tab PO DAILY 11/18/22 02/28/23 History zinc acetate 50 mg (zinc) capsule 50 mg PO DAILY 11/18/22 02/28/23 History (Galzin) acetaminophen 500 mg tablet 1,000 mg PO Q6H PRN PAIN/FEVER 02/28/23 02/28/23 History (Tylenol Extra Strength) amoxicillin 500 mg capsule 500 mg PO DIRECTED PRN PRIOR TO 02/28/23 02/28/23 History DENTAL PROCEDURES docusate sodium 100 mg capsule 100 mg PO BID PRN Constipation 02/28/23 02/28/23 History ondansetron 4 mg disintegrating 4 mg PO Q8H PRN NAUSEA/VOMITING 02/28/23 3 History tablet Patient History Medical History (Updated 03/01/23 @ 11:44 by Suman Cuevas DO) Aortic stenosis Cardiac murmur CONGENITAL Degenerative disc disease History of pneumonia History of umbilical hernia Hyperlipidemia Hypertension Osteoarthritis Paroxysmal atrial fibrillation Surgical History History of cataract surgery RT History of colonoscopy History of herniorrhaphy History of surgery TUNA History of tonsillectomy History of tooth extraction Family History Other Cancer Heart disease Social History Smoking Status: Never smoker Second Hand Exposure: No; Do You Dip or Chew Tobacco: No; Hx Alcohol Use: No Hx Substance Use: No Preferred Language: German Communication Ability: Effective Thinner Sprayer Required: No Beliefs That Will Affect Care: None Current Living Situation: Spouse Other Information That Helps Us Care for You: No Feels Safe at Home: Yes Safety Concerns: Feels Safe At This Time Assistive Devices: Glasses Review of Systems Review of Systems: Review of Systems: See HPI for pertinent positives. All other 10 point review of systems are negative. Physical Exam Physical Exam: General: no acute distress and stated age Head: normocephalic, no masses, lesions, tenderness or abnormalities Eyes: conjunctiva are pink and non-injected, sclera clear Neck: supple, no adenopathy, no bruits, normal jugular venous pulse, no hepatojugular reflux Chest: normal shape and normal respiratory effort Lungs: clear to auscultation and percussion Cardiac Exam: - irregular rate & rhythm, no murmurs gallops or rubs - normal S1, normal S2 Pulses: 2(+) throughout Abdomen: abdomen soft, non-tender, no abnormal masses and no hepatosplenomegaly Musculoskeletal: no gait disturbance, no joint inflammation, no deforming arthritis Extremities: no edema and no cyanosis Neuro: grossly normal exam Results & Data Vital Signs (Past 12 Hours) Vital Signs Temp Pulse Pulse Resp BP Pulse Ox O2 Del Method 03/01/23 11:36 36.6 C 94 H 18 100/65 94 Room Air 03/01/23 09:50 91/64 L 03/01/23 07:43 36.7 C 91 H 17 96/52 L 94 Room Air 03/01/23 07:27 89 03/01/23 02:50 36.7 C 87 18 100/63 95 Room Air Laboratory Results Laboratory Results - last 24 hr 02/28/23 02/28/23 02/28/23 18:27 18:27 18:27 WBC 9.66 RBC 4.94 Hgb 15.3 POC Hgb Hct 43.5 POC Hct MCV 88.1 MCH 31.0 MCHC 35.2 RDW Std Deviation 42.7 RDW Coeff of Neville 13.3 Plt Count 90 L MPV 11.7 Neutrophils % (Manual) 78 Lymphocytes % (Manual) 14 Reactive Lymphs % (Man) Monocytes % (Manual) 7 Metamyelocytes % (Man) 1 Neutrophils # (Manual) 7.53 H Total Absolute Neuts 7.53 H Lymphocytes # (Manual) 1.35 Reactive Lymphs # Total Abs Lymphocytes 1.35 Monocytes # (Manual) 0.68 H Metamyelocytes # (Man) 0.10 H Platelet Estimate Decreased L Polychromasia Echinocytes 1+ Peripher Smr Path Cons Pending PT 12.3 H INR 1.1 APTT PTT Ratio POC Sodium Sodium 132 L POC Potassium Potassium 3.6 POC Chloride Chloride 96 L Carbon Dioxide 25 POC Total CO2 Anion Gap 11 POC Anion Gap POC BUN BUN 80 H Creatinine 2.00 H POC Creatinine Est Cr Clr Drug Dosing 34.4 Est GFR ( Amer) 36.2 Est GFR (Non-Af Amer) 31.3 BUN/Creatinine Ratio 40.0 H Glucose 177 H POC Glucose (other) Lactate Calcium 8.8 POC Ioniz Calcium Wolf Phosphorus Magnesium 2.4 Total Bilirubin 2.1 H Direct Bilirubin AST 63 H ALT 73 H Alkaline Phosphatase 73 Troponin I High Sens 46.6 H Total Protein 6.9 Albumin 3.7 Globulin 3.2 Albumin/Globulin Ratio 1.2 TSH Adenovirus (PCR) Anaplasma Smear See Comment A Anaplasma Comment Pending Babesia Smear See Comment Babesia microti DNA PCR B. pertussis DNA (PCR) B.parapertussis DNA PCR Lyme Disease IgG Ab Lyme IgG (Western Blot) Lyme IgG 18 kDa Band Lyme IgG 23 kDa Band Lyme IgG 28 kDa Band Lyme IgG 30 kDa Band Lyme IgG 39 kDa Band Lyme IgG 41 kDa Band Lyme IgG 45 kDa Band Lyme IgG 58 kDa Band Lyme IgG 66 kDa Band Lyme IgG 93 kDa Band Lyme IgM Ab (WB) Lyme Disease IgM Ab Lyme IgM 23 kDa Band Lyme IgM 39 kDa Band Lyme IgM 41 kDa Band C. pneumoniae DNA (PCR) Coronavirus OC43 (PCR) Coronavirus HKU1 (PCR) Coronavirus 229E (PCR) SARS-CoV-2 (PCR) Coronavirus NL63 (PCR) Human Metapneumovir PCR Influenza Type A (PCR) Influenza Type B (PCR) M. pneumoniae (PCR) Parainfluenza 1 (PCR) Parainfluenza 2 (PCR) Parainfluenza 3 (PCR) Parainfluenza 4 (PCR) RSV (PCR) Entero/Rhino (PCR) 02/28/23 02/28/23 02/28/23 18:27 18:27 18:34 WBC RBC Hgb POC Hgb 15.6 Hct POC Hct 46 MCV MCH MCHC RDW Std Deviation RDW Coeff of Neville Plt Count MPV Neutrophils % (Manual) Lymphocytes % (Manual) Reactive Lymphs % (Man) Monocytes % (Manual) Metamyelocytes % (Man) Neutrophils # (Manual) Total Absolute Neuts Lymphocytes # (Manual) Reactive Lymphs # Total Abs Lymphocytes Monocytes # (Manual) Metamyelocytes # (Man) Platelet Estimate Polychromasia Echinocytes Peripher Smr Path Cons PT INR APTT PTT Ratio POC Sodium 133 L Sodium POC Potassium 3.5 Potassium POC Chloride 95 L Chloride Carbon Dioxide POC Total CO2 22 L Anion Gap POC Anion Gap 20.0 POC BUN 74 H BUN Creatinine POC Creatinine 2.0 H Est Cr Clr Drug Dosing Est GFR ( Amer) Est GFR (Non-Af Amer) BUN/Creatinine Ratio Glucose POC Glucose (other) 176 H Lactate Calcium POC Ioniz Calcium Wolf 1.10 L Phosphorus Magnesium Total Bilirubin Direct Bilirubin AST ALT Alkaline Phosphatase Troponin I High Sens Total Protein Albumin Globulin Albumin/Globulin Ratio TSH 2.008 Adenovirus (PCR) Not Detected Anaplasma Smear Anaplasma Comment Babesia Smear Babesia microti DNA PCR B. pertussis DNA (PCR) Not Detected B.parapertussis DNA PCR Not Detected Lyme Disease IgG Ab Lyme IgG (Western Blot) Lyme IgG 18 kDa Band Lyme IgG 23 kDa Band Lyme IgG 28 kDa Band Lyme IgG 30 kDa Band Lyme IgG 39 kDa Band Lyme IgG 41 kDa Band Lyme IgG 45 kDa Band Lyme IgG 58 kDa Band Lyme IgG 66 kDa Band Lyme IgG 93 kDa Band Lyme IgM Ab (WB) Lyme Disease IgM Ab Lyme IgM 23 kDa Band Lyme IgM 39 kDa Band Lyme IgM 41 kDa Band C. pneumoniae DNA (PCR) Not Detected Coronavirus OC43 (PCR) Not Detected Coronavirus HKU1 (PCR) Not Detected Coronavirus 229E (PCR) Not Detected SARS-CoV-2 (PCR) Not Detected Coronavirus NL63 (PCR) Not Detected Human Metapneumovir PCR Not Detected Influenza Type A (PCR) Not Detected Influenza Type B (PCR) Not Detected M. pneumoniae (PCR) Not Detected Parainfluenza 1 (PCR) Not Detected Parainfluenza 2 (PCR) Not Detected Parainfluenza 3 (PCR) Not Detected Parainfluenza 4 (PCR) Not Detected RSV (PCR) Not Detected Entero/Rhino (PCR) Not Detected 02/28/23 02/28/23 02/28/23 18:36 20:20 21:00 WBC RBC Hgb POC Hgb Hct POC Hct MCV MCH MCHC RDW Std Deviation RDW Coeff of Neville Plt Count MPV Neutrophils % (Manual) Lymphocytes % (Manual) Reactive Lymphs % (Man) Monocytes % (Manual) Metamyelocytes % (Man) Neutrophils # (Manual) Total Absolute Neuts Lymphocytes # (Manual) Reactive Lymphs # Total Abs Lymphocytes Monocytes # (Manual) Metamyelocytes # (Man) Platelet Estimate Polychromasia Echinocytes Peripher Smr Path Cons PT INR APTT PTT Ratio POC Sodium Sodium POC Potassium Potassium POC Chloride Chloride Carbon Dioxide POC Total CO2 Anion Gap POC Anion Gap POC BUN BUN Creatinine POC Creatinine Est Cr Clr Drug Dosing Est GFR ( Amer) Est GFR (Non-Af Amer) BUN/Creatinine Ratio Glucose POC Glucose (other) Lactate 2.1 H* 1.7 Calcium POC Ioniz Calcium Wolf Phosphorus Magnesium Total Bilirubin Direct Bilirubin AST ALT Alkaline Phosphatase Troponin I High Sens Total Protein Albumin Globulin Albumin/Globulin Ratio TSH Adenovirus (PCR) Anaplasma Smear Anaplasma Comment Babesia Smear Babesia microti DNA PCR Pending B. pertussis DNA (PCR) B.parapertussis DNA PCR Lyme Disease IgG Ab Lyme IgG (Western Blot) Lyme IgG 18 kDa Band Lyme IgG 23 kDa Band Lyme IgG 28 kDa Band Lyme IgG 30 kDa Band Lyme IgG 39 kDa Band Lyme IgG 41 kDa Band Lyme IgG 45 kDa Band Lyme IgG 58 kDa Band Lyme IgG 66 kDa Band Lyme IgG 93 kDa Band Lyme IgM Ab (WB) Lyme Disease IgM Ab Lyme IgM 23 kDa Band Lyme IgM 39 kDa Band Lyme IgM 41 kDa Band C. pneumoniae DNA (PCR) Coronavirus OC43 (PCR) Coronavirus HKU1 (PCR) Coronavirus 229E (PCR) SARS-CoV-2 (PCR) Coronavirus NL63 (PCR) Human Metapneumovir PCR Influenza Type A (PCR) Influenza Type B (PCR) M. pneumoniae (PCR) Parainfluenza 1 (PCR) Parainfluenza 2 (PCR) Parainfluenza 3 (PCR) Parainfluenza 4 (PCR) RSV (PCR) Entero/Rhino (PCR) 02/28/23 02/28/23 02/28/23 21:00 21:00 22:05 WBC RBC Hgb POC Hgb Hct POC Hct MCV MCH MCHC RDW Std Deviation RDW Coeff of Neville Plt Count MPV Neutrophils % (Manual) Lymphocytes % (Manual) Reactive Lymphs % (Man) Monocytes % (Manual) Metamyelocytes % (Man) Neutrophils # (Manual) Total Absolute Neuts Lymphocytes # (Manual) Reactive Lymphs # Total Abs Lymphocytes Monocytes # (Manual) Metamyelocytes # (Man) Platelet Estimate Polychromasia Echinocytes Peripher Smr Path Cons PT INR APTT 29.4 PTT Ratio 1.0 POC Sodium Sodium POC Potassium Potassium POC Chloride Chloride Carbon Dioxide POC Total CO2 Anion Gap POC Anion Gap POC BUN BUN Creatinine POC Creatinine Est Cr Clr Drug Dosing Est GFR ( Amer) Est GFR (Non-Af Amer) BUN/Creatinine Ratio Glucose POC Glucose (other) Lactate Calcium POC Ioniz Calcium Wolf Phosphorus Magnesium Total Bilirubin Direct Bilirubin AST ALT Alkaline Phosphatase Troponin I High Sens Total Protein Albumin Globulin Albumin/Globulin Ratio TSH Adenovirus (PCR) Anaplasma Smear Anaplasma Comment Babesia Smear Babesia microti DNA PCR B. pertussis DNA (PCR) B.parapertussis DNA PCR Lyme Disease IgG Ab Negative Lyme IgG (Western Blot) Pending Lyme IgG 18 kDa Band Pending Lyme IgG 23 kDa Band Pending Lyme IgG 28 kDa Band Pending Lyme IgG 30 kDa Band Pending Lyme IgG 39 kDa Band Pending Lyme IgG 41 kDa Band Pending Lyme IgG 45 kDa Band Pending Lyme IgG 58 kDa Band Pending Lyme IgG 66 kDa Band Pending Lyme IgG 93 kDa Band Pending Lyme IgM Ab (WB) Pending Lyme Disease IgM Ab Positive A Lyme IgM 23 kDa Band Pending Lyme IgM 39 kDa Band Pending Lyme IgM 41 kDa Band Pending C. pneumoniae DNA (PCR) Coronavirus OC43 (PCR) Coronavirus HKU1 (PCR) Coronavirus 229E (PCR) SARS-CoV-2 (PCR) Coronavirus NL63 (PCR) Human Metapneumovir PCR Influenza Type A (PCR) Influenza Type B (PCR) M. pneumoniae (PCR) Parainfluenza 1 (PCR) Parainfluenza 2 (PCR) Parainfluenza 3 (PCR) Parainfluenza 4 (PCR) RSV (PCR) Entero/Rhino (PCR) 02/28/23 03/01/23 03/01/23 23:18 05:34 05:34 WBC 8.49 RBC 4.09 L Hgb 12.6 L POC Hgb Hct 35.5 L POC Hct MCV 86.8 MCH 30.8 MCHC 35.5 RDW Std Deviation 42.4 RDW Coeff of Neville 13.4 Plt Count 85 L MPV 12.0 Neutrophils % (Manual) 51 Lymphocytes % (Manual) 16 Reactive Lymphs % (Man) 23 Monocytes % (Manual) 9 Metamyelocytes % (Man) Neutrophils # (Manual) 4.33 Total Absolute Neuts 4.33 Lymphocytes # (Manual) 1.36 Reactive Lymphs # 1.95 Total Abs Lymphocytes 3.31 Monocytes # (Manual) 0.76 H Metamyelocytes # (Man) Platelet Estimate Polychromasia 1+ Echinocytes Peripher Smr Path Cons PT INR APTT PTT Ratio POC Sodium Sodium 135 L POC Potassium Potassium 3.4 L POC Chloride Chloride 104 Carbon Dioxide 24 POC Total CO2 Anion Gap 7 POC Anion Gap POC BUN BUN 59 H D Creatinine 1.20 D POC Creatinine Est Cr Clr Drug Dosing 57.5 Est GFR ( Amer) 67.2 Est GFR (Non-Af Amer) 58.0 BUN/Creatinine Ratio 49.2 H Glucose 144 H POC Glucose (other) Lactate Calcium 7.9 L POC Ioniz Calcium Wolf Phosphorus Magnesium Total Bilirubin 1.4 H Direct Bilirubin 0.4 H AST 49 H ALT 58 H Alkaline Phosphatase 49 Troponin I High Sens 34.1 H D Total Protein 5.4 L D Albumin 3.0 L Globulin Albumin/Globulin Ratio TSH Adenovirus (PCR) Anaplasma Smear Anaplasma Comment Babesia Smear Babesia microti DNA PCR B. pertussis DNA (PCR) B.parapertussis DNA PCR Lyme Disease IgG Ab Lyme IgG (Western Blot) Lyme IgG 18 kDa Band Lyme IgG 23 kDa Band Lyme IgG 28 kDa Band Lyme IgG 30 kDa Band Lyme IgG 39 kDa Band Lyme IgG 41 kDa Band Lyme IgG 45 kDa Band Lyme IgG 58 kDa Band Lyme IgG 66 kDa Band Lyme IgG 93 kDa Band Lyme IgM Ab (WB) Lyme Disease IgM Ab Lyme IgM 23 kDa Band Lyme IgM 39 kDa Band Lyme IgM 41 kDa Band C. pneumoniae DNA (PCR) Coronavirus OC43 (PCR) Coronavirus HKU1 (PCR) Coronavirus 229E (PCR) SARS-CoV-2 (PCR) Coronavirus NL63 (PCR) Human Metapneumovir PCR Influenza Type A (PCR) Influenza Type B (PCR) M. pneumoniae (PCR) Parainfluenza 1 (PCR) Parainfluenza 2 (PCR) Parainfluenza 3 (PCR) Parainfluenza 4 (PCR) RSV (PCR) Entero/Rhino (PCR) 03/01/23 03/01/23 07:34 07:50 WBC RBC Hgb POC Hgb Hct POC Hct MCV MCH MCHC RDW Std Deviation RDW Coeff of Neville Plt Count MPV Neutrophils % (Manual) Lymphocytes % (Manual) Reactive Lymphs % (Man) Monocytes % (Manual) Metamyelocytes % (Man) Neutrophils # (Manual) Total Absolute Neuts Lymphocytes # (Manual) Reactive Lymphs # Total Abs Lymphocytes Monocytes # (Manual) Metamyelocytes # (Man) Platelet Estimate Polychromasia Echinocytes Peripher Smr Path Cons PT INR APTT 52.6 H* PTT Ratio 1.9 POC Sodium Sodium POC Potassium Potassium POC Chloride Chloride Carbon Dioxide POC Total CO2 Anion Gap POC Anion Gap POC BUN BUN Creatinine POC Creatinine Est Cr Clr Drug Dosing Est GFR ( Amer) Est GFR (Non-Af Amer) BUN/Creatinine Ratio Glucose POC Glucose (other) Lactate Calcium POC Ioniz Calcium Wolf Phosphorus 2.7 Magnesium 2.3 Total Bilirubin Direct Bilirubin AST ALT Alkaline Phosphatase Troponin I High Sens Total Protein Albumin Globulin Albumin/Globulin Ratio TSH Adenovirus (PCR) Anaplasma Smear Anaplasma Comment Babesia Smear Babesia microti DNA PCR B. pertussis DNA (PCR) B.parapertussis DNA PCR Lyme Disease IgG Ab Lyme IgG (Western Blot) Lyme IgG 18 kDa Band Lyme IgG 23 kDa Band Lyme IgG 28 kDa Band Lyme IgG 30 kDa Band Lyme IgG 39 kDa Band Lyme IgG 41 kDa Band Lyme IgG 45 kDa Band Lyme IgG 58 kDa Band Lyme IgG 66 kDa Band Lyme IgG 93 kDa Band Lyme IgM Ab (WB) Lyme Disease IgM Ab Lyme IgM 23 kDa Band Lyme IgM 39 kDa Band Lyme IgM 41 kDa Band C. pneumoniae DNA (PCR) Coronavirus OC43 (PCR) Coronavirus HKU1 (PCR) Coronavirus 229E (PCR) SARS-CoV-2 (PCR) Coronavirus NL63 (PCR) Human Metapneumovir PCR Influenza Type A (PCR) Influenza Type B (PCR) M. pneumoniae (PCR) Parainfluenza 1 (PCR) Parainfluenza 2 (PCR) Parainfluenza 3 (PCR) Parainfluenza 4 (PCR) RSV (PCR) Entero/Rhino (PCR) Medications Administered Current Inpatient Medications Acetaminophen (Acetaminophen 500 Mg Tab) 500 mg PO Q6H PRN PRN Reason: pain/fever Stop: 03/31/23 00:05 Benzonatate (Benzonatate 100 Mg Capsule) 100 mg PO TID PRN PRN Reason: Cough Stop: 03/30/23 22:53 Doxycycline Hyclate (Doxycycline Hyclate 100 Mg Cap) 100 mg PO BID [facility] Stop: 03/11/23 08:59 Last Admin: 03/01/23 10:01 Dose: 100 mg Famotidine (Famotidine 20 Mg Tab) 20 mg PO DAILY [facility] Stop: 03/31/23 08:59 Last Admin: 03/01/23 10:02 Dose: 20 mg Ferrous Gluconate (Ferrous Gluconate 324 Mg Tab) 324 mg PO DAILY [facility] Stop: 03/31/23 08:59 Last Admin: 03/01/23 10:02 Dose: 324 mg Fluticasone Propionate (Fluticasone Propionate Na Spr 16 Gm Btl) 2 sprays NA DAILY PRN PRN Reason: Allergy Symptoms Stop: 03/30/23 22:53 Heparin Sodium/Dextrose (Heparin Sodium/Dextrose) 25,000 units in 500 mls @ 28 mls/hr IV .[id number] [facility]; Protocol Stop: 03/30/23 21:59 Last Titration: 03/01/23 07:03 Dose: 1,400 units/hr, 28 mls/hr Metoprolol Succinate (Metoprolol Succ 25mg Ext Rel Tab) 25 mg PO QAM [facility] Stop: 03/31/23 08:59 Last Admin: 03/01/23 10:28 Dose: Not Given Multivitamins (Multivitamin Tab) 1 tab PO DAILY [facility] Stop: 03/31/23 08:59 Last Admin: 03/01/23 10:02 Dose: 1 tab Senna/Docusate Sodium (Docusate Sodium/Senna 50/8.6mg Tab) 1 tab PO BID [facility] Stop: 03/31/23 08:59 Last Admin: 03/01/23 10:01 Dose: 1 tab Simvastatin (Simvastatin 20 Mg Tab) 20 mg PO QPM [facility] Stop: 03/31/23 20:59 Tramadol HCl (Tramadol Hcl 50 Mg Tablet) 25 - 50 mg PO Q4H PRN PRN Reason: Pain Stop: 03/30/23 22:53 (2) Aortic stenosis Cardiac valve disease etiology: etiology unspecified Qualified Code(s): I35.0 - Nonrheumatic aortic (valve) stenosis
--- NOTE | 2023-03-01 12:23 | Hospitalist Progress Note ---
Date of Service March 01, 2023 Assessment & Plan (1) Atrial fibrillation with rapid ventricular response: Plan: Patient was found to have Afib with RVR on presentation Troponin elevation secondary to A-fib Currently rate controlled On metoprolol Continue heparin drip for now Cardiology eval and recommendations noted Tick borne labs showed +Anaplasma smear, +Lyme IgM Ab Anaplasmosis Lyme disease Continue doxycycline Transaminitis, thrombocytopenia likely due to tickborne infection Cardiology consulted ID as patient is scheduled for Aortic valvular replacement within the next 2 weeks Acute kidney injury Cr is 2 on admission Improving. Cr is 1.2 today Holding home HCTZ Encourage po intake Chronic diastolic heart failure (EF 70%, TTE 2022) Valvular heart disease (moderate , mild MR), [facility] [place] end of the month for bicuspid aortic valve stenosis Hyperlipidemia, on statin Rx Prediabetes, hemoglobin A1c of 5.9 last February 2023 Elevated PSA is chronic. Patient reports he follows up with urology who has been managing this DVT prophylaxis. IV heparin Full code I spent a total of 45 minutes coordinating, documenting and providing care for this patient excluding time spent in performance of separately billed services Admission and Anticipated Discharge Date Admission Date: February 28, 2023 Subjective Patient seen and examined Reports anorexia, weakness, malaise over the past couple of weeks Reports he may have lost about 20lb since November Denied any fevers, chills Denied chest pain, cough, shortness of breath Denied any hematuria, dysuria, freq, urgency, diarrhea Reports constipation Physical Exam Constitutional: + well hydrated; no acute distress Eyes: PERRL, conjunctivae normal, anicteric sclerae ENMT: external ear and nose normal, oropharynx normal Respiratory: normal respiratory effort, lungs clear to auscultation Cardiovascular: Rate/Rhythm: + irregularly irregular S1 S2 Gastrointestinal (Abdomen): normal bowel sounds, soft, nontender, no hepatosplenomegaly Musculoskeletal: no cyanosis or clubbing, extremities motor strength 5/5 Neurologic: PERRL, EOMI, accommodation nl, no face palsy, no dysarthria Psychiatric: A+Ox3, euthymic affect Results & Data Results & Data Vital Signs (Past 12 Hours) Vital Signs Temp Pulse Pulse Resp BP Pulse Ox O2 Del Method 03/01/23 11:36 36.6 C 94 H 18 100/65 94 Room Air 03/01/23 09:50 91/64 L 03/01/23 07:43 36.7 C 91 H 17 96/52 L 94 Room Air 03/01/23 07:27 89 03/01/23 02:50 36.7 C 87 18 100/63 95 Room Air Laboratory Results Abnormal lab results 02/28/23 02/28/23 02/28/23 Range/Units 18:27 18:27 18:27 RBC (4.70-6.10) M/uL Hgb (14.0-18.0) g/dl Hct (42.0-52.0) % Plt Count 90 L (130-400) K/uL Neutrophils # (Manual) 7.53 H (1.40-6.50) K/uL Total Absolute Neuts 7.53 H (1.4-6.5) K/uL Monocytes # (Manual) 0.68 H (0.11-0.59) K/uL Metamyelocytes # (Man) 0.10 H (0-0) K/uL Platelet Estimate Decreased L (Normal) PT 12.3 H (9.0-12.0) Seconds APTT (21.0-31.0) Seconds POC Sodium (135-144) mmol/L Sodium 132 L (136-145) mmol/L Potassium (3.5-5.1) mmol/L POC Chloride (101-112) mmol/L Chloride 96 L (98-107) mmol/L POC Total CO2 (24-31) mmol/L POC BUN (7-18) mg/dl BUN 80 H (6-23) mg/dl Creatinine 2.00 H (0.6-1.4) mg/dl POC Creatinine (0.6-1.3) mg/dl BUN/Creatinine Ratio 40.0 H (10-20) Glucose 177 H (70-99(Fasting)) mg/dl POC Glucose (other) (70-99) mg/dl Lactate (0.4-2.0) mmol/L Calcium (8.6-10.3) mg/dl POC Ioniz Calcium Wolf (1.12-1.32) mmol/l Total Bilirubin 2.1 H (0.2-1.0) mg/dl Direct Bilirubin (0-0.2) mg/dl AST 63 H (13-39) U/L ALT 73 H (7-52) U/L Troponin I High Sens 46.6 H (0-20) pg/ml Total Protein (6.0-8.3) gm/dl Albumin (3.4-5.0) gm/dl Anaplasma Smear See Comment A Lyme Disease IgM Ab (Negative) 02/28/23 02/28/23 02/28/23 Range/Units 18:34 18:36 21:00 RBC (4.70-6.10) M/uL Hgb (14.0-18.0) g/dl Hct (42.0-52.0) % Plt Count (130-400) K/uL Neutrophils # (Manual) (1.40-6.50) K/uL Total Absolute Neuts (1.4-6.5) K/uL Monocytes # (Manual) (0.11-0.59) K/uL Metamyelocytes # (Man) (0-0) K/uL Platelet Estimate (Normal) PT (9.0-12.0) Seconds APTT (21.0-31.0) Seconds POC Sodium 133 L (135-144) mmol/L Sodium (136-145) mmol/L Potassium (3.5-5.1) mmol/L POC Chloride 95 L (101-112) mmol/L Chloride (98-107) mmol/L POC Total CO2 22 L (24-31) mmol/L POC BUN 74 H (7-18) mg/dl BUN (6-23) mg/dl Creatinine (0.6-1.4) mg/dl POC Creatinine 2.0 H (0.6-1.3) mg/dl BUN/Creatinine Ratio (10-20) Glucose (70-99(Fasting)) mg/dl POC Glucose (other) 176 H (70-99) mg/dl Lactate 2.1 H* (0.4-2.0) mmol/L Calcium (8.6-10.3) mg/dl POC Ioniz Calcium Wolf 1.10 L (1.12-1.32) mmol/l Total Bilirubin (0.2-1.0) mg/dl Direct Bilirubin (0-0.2) mg/dl AST (13-39) U/L ALT (7-52) U/L Troponin I High Sens (0-20) pg/ml Total Protein (6.0-8.3) gm/dl Albumin (3.4-5.0) gm/dl Anaplasma Smear Lyme Disease IgM Ab Positive A (Negative) 02/28/23 03/01/23 03/01/23 Range/Units 23:18 05:34 05:34 RBC 4.09 L (4.70-6.10) M/uL Hgb 12.6 L (14.0-18.0) g/dl Hct 35.5 L (42.0-52.0) % Plt Count 85 L (130-400) K/uL Neutrophils # (Manual) (1.40-6.50) K/uL Total Absolute Neuts (1.4-6.5) K/uL Monocytes # (Manual) 0.76 H (0.11-0.59) K/uL Metamyelocytes # (Man) (0-0) K/uL Platelet Estimate (Normal) PT (9.0-12.0) Seconds APTT (21.0-31.0) Seconds POC Sodium (135-144) mmol/L Sodium 135 L (136-145) mmol/L Potassium 3.4 L (3.5-5.1) mmol/L POC Chloride (101-112) mmol/L Chloride (98-107) mmol/L POC Total CO2 (24-31) mmol/L POC BUN (7-18) mg/dl BUN 59 H D (6-23) mg/dl Creatinine (0.6-1.4) mg/dl POC Creatinine (0.6-1.3) mg/dl BUN/Creatinine Ratio 49.2 H (10-20) Glucose 144 H (70-99(Fasting)) mg/dl POC Glucose (other) (70-99) mg/dl Lactate (0.4-2.0) mmol/L Calcium 7.9 L (8.6-10.3) mg/dl POC Ioniz Calcium Wolf (1.12-1.32) mmol/l Total Bilirubin 1.4 H (0.2-1.0) mg/dl Direct Bilirubin 0.4 H (0-0.2) mg/dl AST 49 H (13-39) U/L ALT 58 H (7-52) U/L Troponin I High Sens 34.1 H D (0-20) pg/ml Total Protein 5.4 L D (6.0-8.3) gm/dl Albumin 3.0 L (3.4-5.0) gm/dl Anaplasma Smear Lyme Disease IgM Ab (Negative) 03/01/23 Range/Units 07:34 RBC (4.70-6.10) M/uL Hgb (14.0-18.0) g/dl Hct (42.0-52.0) % Plt Count (130-400) K/uL Neutrophils # (Manual) (1.40-6.50) K/uL Total Absolute Neuts (1.4-6.5) K/uL Monocytes # (Manual) (0.11-0.59) K/uL Metamyelocytes # (Man) (0-0) K/uL Platelet Estimate (Normal) PT (9.0-12.0) Seconds APTT 52.6 H* (21.0-31.0) Seconds POC Sodium (135-144) mmol/L Sodium (136-145) mmol/L Potassium (3.5-5.1) mmol/L POC Chloride (101-112) mmol/L Chloride (98-107) mmol/L POC Total CO2 (24-31) mmol/L POC BUN (7-18) mg/dl BUN (6-23) mg/dl Creatinine (0.6-1.4) mg/dl POC Creatinine (0.6-1.3) mg/dl BUN/Creatinine Ratio (10-20) Glucose (70-99(Fasting)) mg/dl POC Glucose (other) (70-99) mg/dl Lactate (0.4-2.0) mmol/L Calcium (8.6-10.3) mg/dl POC Ioniz Calcium Wolf (1.12-1.32) mmol/l Total Bilirubin (0.2-1.0) mg/dl Direct Bilirubin (0-0.2) mg/dl AST (13-39) U/L ALT (7-52) U/L Troponin I High Sens (0-20) pg/ml Total Protein (6.0-8.3) gm/dl Albumin (3.4-5.0) gm/dl Anaplasma Smear Lyme Disease IgM Ab (Negative)
[2023-03-01] MEDS ORDERED: POLYETHYLENE (MIRALAX) 17 GM PACK PO PRN (15:40)
[2023-03-01] MEDS: HEPARIN SODIUM/DEXTROSE 25,000 UNITS/500 ML BAG IV SCH (17:32)
[2023-03-01] MEDS: SIMVASTATIN 20 MG TAB PO SCH (20:32)
--- NOTE | 2023-03-01 21:20 | Electrocardiogram Report ---
Test Reason : Blood Pressure : / mmHG Vent. Rate : 114 BPM Atrial Rate : 000 BPM P-R Int : 000 ms QRS Dur : 094 ms QT Int : 330 ms P-R-T Axes : 000 -35 039 degrees QTc Int : 454 ms Atrial fibrillation with rapid ventricular response with premature ventricular or aberrantly conducte d complexes Left axis deviation Moderate voltage criteria for LVH, may be normal variant ( R in aVL , Shepherd product ) Abnormal ECG When compared with ECG of 20-MAR-2020 15:08, Atrial fibrillation has replaced Sinus rhythm Vent. rate has increased BY [address] no longer elevated in Lateral leads Confirmed by Perfecto Ruiz ([id number] on 03/01/2023 9:20:42 PM Referred By: REFERRED SELF Confirmed By:Perfecto Ruiz
[2023-03-02 06:22] LABS: Hematocrit (blood only) 38.9 % (42.0-52.0); Hemoglobin 13.4 g/dl (14.0-18.0); Mean Corpuscular Hemoglobin 30.6 pg (25.0-34.0); Mean Corpuscular Hgb Conc 34.4 g/dL (32.0-36.0); Mean Corpuscular Volume 88.8 fL (80.0-100.0); Platelet Count 120 K/uL (130-400); RDW Coefficient of Variation 13.4 % (11.5-14.5); RDW Standard Deviation 44.2 fL (36.4-46.3); Red Blood Count 4.38 M/uL (4.70-6.10); White Blood Count 7.06 K/ul (4.8-10.8)
[2023-03-02 06:28] LABS: BUN Creatinine Ratio 40.9 (10-20); Calcium 8.3 mg/dl (8.6-10.3); Creatinine Clr Calc Pharmacy 74.2 ml/min; Est GFR (African American) 91.5 ml/min; Est GFR (Non-African American) 78.9 ml/min; Potassium 3.9 mmol/L (3.5-5.1)
[2023-03-02 07:28] LABS: Partial Thromboplastin Ratio 2.3
[2023-03-02] MEDS: DOCUSATE SODIUM/SENNA 50/8.6MG TAB PO SCH ×2 (08:35→20:48)
[2023-03-02] MEDS: DOXYCYCLINE HYCLATE 100 MG CAP PO SCH ×2 (08:35→20:49)
[2023-03-02] MEDS: FAMOTIDINE 20 MG TAB PO SCH (08:36)
[2023-03-02] MEDS: MULTIVITAMIN TAB PO SCH (08:36)
[2023-03-02] MEDS: FERROUS GLUCONATE 324 MG TAB PO SCH (08:36)
[2023-03-02] MEDS: METOPROLOL SUCC 25MG EXT REL TAB PO SCH (08:37)
[2023-03-02] MEDS ORDERED: POLYETHYLENE (MIRALAX) 17 GM PACK PO SCH (09:00)
[2023-03-02 11:07] LABS: Anaplasmosis Smear(Rpt to DOH) Pos for Anaplasma
--- NOTE | 2023-03-02 11:12 | Cardiology Progress Note ---
Date of Service March 02, 2023 Assessment & Plan (1) Atrial fibrillation with rapid ventricular response: (2) Aortic stenosis: (3) Acute Lyme disease: Plan Atrial fibrillation remains present with mildly elevated rate. Did not receive metoprolol succinate yesterday due to hold parameters Platelet count improved since initiating doxycycline Recommendations: Increase metoprolol succinate to 37.5 mg/day. Plan switch to anticoagulation to oral once hemodynamically and hematologically stable Agree with plans for ID evaluation given upcoming heart valve surgery scheduled Admission and Anticipated Discharge Date Admission Date: February 28, 2023 Subjective Patient seen and examined, chart, medications, telemetry reviewed. Overall no acute complaints. Heart rate trending mildly elevated but did not receive metoprolol succinate yesterday Mild sweats last evening No chest pains or shortness of breath appetite only fair but no dysphagia, no edema Review of Systems Review of Systems: All systems reviewed & are unremarkable except as noted in Subjective Physical Exam Constitutional: WD/WN, vitals as above no acute distress Eyes: PERRL, conjunctivae normal, anicteric sclerae ENMT: external ear and nose normal, oropharynx normal Neck: trachea midline, no thyromegaly Respiratory: normal respiratory effort, lungs clear to auscultation Cardiovascular: Rate/Rhythm: + tachycardic and + irregularly irregular H eart Sounds: + murmur (Grade 3/6 harsh systolic murmur) Vessels: no JVD Extremities: no edema Results & Data Vital Signs (Past 12 Hours) Vital Signs Temp Pulse Pulse Resp BP Pulse Ox O2 Del Method 03/02/23 08:10 36.4 C L 95 H 19 132/82 97 Room Air 03/02/23 03:00 36.5 C 69 16 116/75 96 Room Air 03/02/23 00:43 84 Laboratory Results Laboratory Results - last 24 hr 02/28/23 03/02/23 03/02/23 18:27 05:51 05:51 WBC 7.06 RBC 4.38 L Hgb 13.4 L Hct 38.9 L MCV 88.8 MCH 30.6 MCHC 34.4 RDW Std Deviation 44.2 RDW Coeff of Neville 13.4 Plt Count 120 L MPV 11.0 [address] Sm[address] Cons APTT PTT Ratio Sodium 138 Potassium 3.9 Chloride 107 Carbon Dioxide 25 Anion Gap 6 BUN 38 H D Creatinine 0.93 Est Cr Clr Drug Dosing 74.2 Est GFR ( Amer) 91.5 Est GFR (Non-Af Amer) 78.9 BUN/Creatinine Ratio 40.9 H Glucose 134 H Calcium 8.3 L Anaplasma Comment Pos for Anaplasma 03/02/23 05:51 WBC RBC Hgb Hct MCV MCH MCHC RDW Std Deviation RDW Coeff of Neville Plt Count MPV Peripher Smr Path Cons APTT 65.0 H* PTT Ratio 2.3 Sodium Potassium Chloride Carbon Dioxide Anion Gap BUN Creatinine Est Cr Clr Drug Dosing Est GFR ( Amer) Est GFR (Non-Af Amer) BUN/Creatinine Ratio Glucose Calcium Anaplasma Comment (2) Aortic stenosis Cardiac valve disease etiology: etiology unspecified Qualified Code(s): I35.0 - Nonrheumatic aortic (valve) stenosis
[2023-03-02] MEDS: HEPARIN SODIUM/DEXTROSE 25,000 UNITS/500 ML BAG IV SCH (11:22)
[2023-03-02] MEDS ORDERED: METOPROLOL SUCC 25MG EXT REL TAB PO ONE (11:24)
--- NOTE | 2023-03-02 13:54 | Hospitalist Progress Note ---
Date of Service March 02, 2023 Assessment & Plan (1) Atrial fibrillation with rapid ventricular response: Plan: Patient was found to have Afib with RVR on presentation Troponin elevation secondary to A-fib Currently rate controlled On metoprolol succinate. Increased to 37.5mg daily per Cards Currently heparin drip for now. Start warfarin today. Provided anticoagulation education Monitor INR Will need set up with Anticoagulation clinic Cardiology eval and recommendations noted Tick borne labs showed +Anaplasma smear, +Lyme IgM Ab Anaplasmosis Lyme disease Continue doxycycline Transaminitis, thrombocytopenia likely due to tickborne infection. Thrombocytopenia improving ID recs noted. Doxycycline for 14 days Acute kidney injury Cr is 2 on admission Resolved. Cr is 0.93 today Holding home HCTZ Chronic diastolic heart failure (EF 70%, TTE 2022) Valvular heart disease (moderate , mild MR), [facility] [place] contemplated end of the month for bicuspid aortic valve stenosis Hyperlipidemia, on statin Rx Prediabetes, hemoglobin A1c of 5.9 last February 2023 Elevated PSA is chronic. Patient reports he follows up with urology who has been managing this DVT prophylaxis. IV heparin + warfarin Full code I spent a total of 40 minutes coordinating, documenting and providing care for this patient excluding time spent in performance of separately billed services Admission and Anticipated Discharge Date Admission Date: February 28, 2023 Subjective Patient seen and examined Reports feeling better today Still feels weak but improved since admission Denied any fevers, chills Denied chest pain, cough, shortness of breath Denied any hematuria, dysuria, freq, urgency, diarrhea Reports he feels he will have a BM today. Physical Exam Constitutional: + well hydrated; no acute distress Eyes: PERRL, conjunctivae normal, anicteric sclerae ENMT: external ear and nose normal, oropharynx normal Respiratory: normal respiratory effort, lungs clear to auscultation Cardiovascular: Rate/Rhythm: + irregularly irregular S1 S2 Gastrointestinal (Abdomen): normal bowel sounds, soft, nontender, no hepatosplenomegaly Musculoskeletal: no cyanosis or clubbing, extremities motor strength 5/5 Neurologic: PERRL, EOMI, accommodation nl, no face palsy, no dysarthria Psychiatric: A+Ox3, euthymic affect Results & Data Results & Data Vital Signs (Past 12 Hours) Vital Signs Temp Pulse Resp BP Pulse Ox O2 Del Method 03/02/23 11:58 36.2 C L 90 18 119/77 97 Room Air 03/02/23 08:10 36.4 C L 95 H 19 132/82 97 Room Air 03/02/23 03:00 36.5 C 69 16 116/75 96 Room Air Laboratory Results Abnormal lab results 03/02/23 03/02/23 03/02/23 Range/Units 05:51 05:51 05:51 RBC 4.38 L (4.70-6.10) M/uL Hgb 13.4 L (14.0-18.0) g/dl Hct 38.9 L (42.0-52.0) % Plt Count 120 L (130-400) K/uL APTT 65.0 H* (21.0-31.0) Seconds BUN 38 H D (6-23) mg/dl BUN/Creatinine Ratio 40.9 H (10-20) Glucose 134 H (70-99(Fasting)) mg/dl Calcium 8.3 L (8.6-10.3) mg/dl
[2023-03-02] MEDS: WARFARIN SOD 5 MG TAB PO SCH (16:35)
[2023-03-02] MEDS: SIMVASTATIN 20 MG TAB PO SCH (20:49)
[2023-03-03] MEDS: HEPARIN SODIUM/DEXTROSE 25,000 UNITS/500 ML BAG IV SCH ×2 (05:06→22:53)
[2023-03-03 06:20] LABS: Hematocrit (blood only) 37.1 % (42.0-52.0); Hemoglobin 12.8 g/dl (14.0-18.0); Mean Corpuscular Hemoglobin 30.3 pg (25.0-34.0); Mean Corpuscular Hgb Conc 34.5 g/dL (32.0-36.0); Mean Corpuscular Volume 87.9 fL (80.0-100.0); Mean Platelet Volume 11.1 fL (9.4-12.4); Platelet Count 160 K/uL (130-400); RDW Coefficient of Variation 13.4 % (11.5-14.5); RDW Standard Deviation 43.3 fL (36.4-46.3); Red Blood Count 4.22 M/uL (4.70-6.10); White Blood Count 6.41 K/ul (4.8-10.8)
[2023-03-03 06:31] LABS: BUN Creatinine Ratio 34.1 (10-20); Calcium 8.4 mg/dl (8.6-10.3); Creatinine Clr Calc Pharmacy 84.9 ml/min; Est GFR (African American) 98.9 ml/min; Est GFR (Non-African American) 85.3 ml/min; Magnesium 1.9 mg/dl (1.7-2.4); Phosphorus 2.8 mg/dl (2.5-4.9); Potassium 3.9 mmol/L (3.5-5.1)
[2023-03-03 06:58] LABS: INR 1.2 (0.9-1.1); Partial Thromboplastin Ratio 2.4; Prothrombin Time 13.3 Seconds (9.0-12.0)
[2023-03-03 07:39] LABS: Partial Thromboplastin Time 68.5 Seconds (21.0-31.0)
[2023-03-03] MEDS: DOXYCYCLINE HYCLATE 100 MG CAP PO SCH ×2 (08:58→20:49)
[2023-03-03] MEDS: DOCUSATE SODIUM/SENNA 50/8.6MG TAB PO SCH ×2 (08:58→20:48)
[2023-03-03] MEDS: FAMOTIDINE 20 MG TAB PO SCH (08:59)
[2023-03-03] MEDS: FERROUS GLUCONATE 324 MG TAB PO SCH (08:59)
[2023-03-03] MEDS: MULTIVITAMIN TAB PO SCH (09:00)
[2023-03-03] MEDS ORDERED: METOPROLOL SUCC 25MG EXT REL TAB PO SCH (09:00)
[2023-03-03 15:09] LABS: Partial Thromboplastin Ratio 2.4
[2023-03-03] MEDS: WARFARIN SOD 5 MG TAB PO SCH (15:46)
[2023-03-03 15:53] LABS: Partial Thromboplastin Time 66.6 Seconds (21.0-31.0)
--- NOTE | 2023-03-03 16:05 | Hospitalist Progress Note ---
Date of Service March 03, 2023 Assessment & Plan (1) Atrial fibrillation with rapid ventricular response: Plan: Patient was found to have Afib with RVR on presentation Troponin elevation secondary to A-fib. Likely demand ischemia Currently rate controlled On metoprolol succinate. Currently heparin drip + warfarin Provided more anticoagulation education Will follow up with Anticoagulation clinic Monitor INR Will follow up Cardiology recs today Tick borne labs showed +Anaplasma smear, +Lyme IgM Ab Anaplasmosis Lyme disease Continue doxycycline to complete 14 days Had a 2-2.5s pause on tele Discussed with Social Staff Worker, will treat with IV ceftriaxone as well as lyme carditis cannot be ruled out completely Transaminitis, thrombocytopenia likely due to tickborne infection. Thrombocytopenia resolved Acute kidney injury Cr is 2 on admission Resolved. Cr is 0.82 today Holding home HCTZ. Can resume on dc Chronic diastolic heart failure (EF 70%, TTE 2022) Valvular heart disease (moderate , mild MR), [facility] [place] end of the month for bicuspid aortic valve stenosis Hyperlipidemia, on statin Rx Prediabetes, hemoglobin A1c of 5.9 last February 2023 Elevated PSA is chronic. Patient reports he follows up with urology who has been managing this DVT prophylaxis. IV heparin + warfarin Full code I spent a total of 40 minutes coordinating, documenting and providing care for this patient excluding time spent in performance of separately billed services Admission and Anticipated Discharge Date Admission Date: February 28, 2023 Subjective Patient seen and examined Reports feeling better each day Denied any fevers, chills Denied chest pain, cough, shortness of breath Denied any hematuria, dysuria, freq, urgency, diarrhea Constipation resolved Physical Exam Constitutional: + well hydrated; no acute distress Eyes: PERRL, conjunctivae normal, anicteric sclerae ENMT: external ear and nose normal, oropharynx normal Respiratory: normal respiratory effort, lungs clear to auscultation Cardiovascular: Rate/Rhythm: + irregularly irregular S1 S2 Gastrointestinal (Abdomen): normal bowel sounds, soft, nontender, no hepatosplenomegaly Musculoskeletal: no cyanosis or clubbing, extremities motor strength 5/5 Neurologic: PERRL, EOMI, accommodation nl, no face palsy, no dysarthria Psychiatric: A+Ox3, euthymic affect Results & Data Results & Data Vital Signs (Past 12 Hours) Vital Signs Temp Pulse Pulse Resp BP Pulse Ox O2 Del Method 03/03/23 07:00 78 03/03/23 12:10 36.6 C 86 18 133/70 97 Room Air 03/03/23 08:00 Room Air 03/03/23 07:46 36.4 C L 79 18 106/69 97 Room Air Laboratory Results Abnormal lab results 03/03/23 03/03/23 03/03/23 Range/Units 05:44 05:44 05:44 RBC 4.22 L (4.70-6.10) M/uL Hgb 12.8 L (14.0-18.0) g/dl Hct 37.1 L (42.0-52.0) % PT 13.3 H (9.0-12.0) Seconds INR 1.2 H (0.9-1.1) APTT 68.5 H* (21.0-31.0) Seconds BUN 28 H (6-23) mg/dl BUN/Creatinine Ratio 34.1 H (10-20) Glucose 110 H (70-99(Fasting)) mg/dl Calcium 8.4 L (8.6-10.3) mg/dl 03/03/23 Range/Units 14:09 RBC (4.70-6.10) M/uL Hgb (14.0-18.0) g/dl Hct (42.0-52.0) % PT (9.0-12.0) Seconds INR (0.9-1.1) APTT 66.6 H* (21.0-31.0) Seconds BUN (6-23) mg/dl BUN/Creatinine Ratio (10-20) Glucose (70-99(Fasting)) mg/dl Calcium (8.6-10.3) mg/dl
[2023-03-03] MEDS ORDERED: cefTRIAXone SODIUM 2,000 MG in DEXTROSE 5% 50 ML IV SCH ×2 (17:30→18:45)
--- NOTE | 2023-03-03 18:20 | Cardiology Progress Note ---
Date of Service March 03, 2023 Assessment & Plan (1) Atrial fibrillation with rapid ventricular response: (2) Aortic stenosis: (3) Acute Lyme disease: Plan 03/03/2023 Patient overall demonstrates clinical improvement. Platelets increased 260,000. Atrial fibrillation rates come under better control. No shortness of breath or chest pain. On increased dose of metoprolol lower heart rates observed last evening with few less than 3-second pauses Recommendations: We will treat for Lyme and anaplasmosis is doing but add ceftriaxone, Lyme carditis not completely Now that platelet count is recovering we will anticoagulate with warfarin Reduce metoprolol succinate back to 25 mg/day Maintain telemetry Discussed in detail with patient and Admission and Anticipated Discharge Date Admission Date: February 28, 2023 Physical Exam Constitutional: WD/WN, vitals as above no acute distress Eyes: PERRL, conjunctivae normal, anicteric sclerae ENMT: external ear and nose normal, oropharynx normal Neck: trachea midline, no thyromegaly Respiratory: normal respiratory effort, lungs clear to auscultation Cardiovascular: Rate/Rhythm: + tachycardic and + irregularly irregular Heart Sounds: + murmur (Grade 3/6 harsh systolic murmur) Vessels: no JVD Extremities: no edema Results & Data Vital Signs (Past 12 Hours) Vital Signs Temp Pulse Pulse Resp BP Pulse Ox O2 Del Method 03/03/23 16:02 36.8 C 67 20 111/74 97 Room Air 03/03/23 07:00 78 03/03/23 12:10 36.6 C 86 18 133/70 97 Room Air 03/03/23 08:00 Room Air 03/03/23 07:46 36.4 C L 79 18 106/69 97 Room Air (2) Aortic stenosis Cardiac valve disease etiology: etiology unspecified Qualified Code(s): I35.0 - Nonrheumatic aortic (valve) stenosis
[2023-03-03] MEDS ORDERED: Nursing to Pharmacy Communication SCH (18:30)
[2023-03-03] MEDS: SIMVASTATIN 20 MG TAB PO SCH (20:48)
[2023-03-04 03:22] LABS: 18KDIGG Band NON-REACTIVE; 23KDIGG Band NON-REACTIVE; 23KDIGM Band REACTIVE; 28KDIGG Band NON-REACTIVE; 30KDIGG Band NON-REACTIVE; 39KDIGG Band NON-REACTIVE; 39KDIGM Band REACTIVE; 41KDIGG Band NON-REACTIVE; 41KDIGM Band NON-REACTIVE; 45KDIGG Band NON-REACTIVE; 58KDIGG Band NON-REACTIVE; 66KDIGG Band NON-REACTIVE; 93KDIGG Band REACTIVE; Lyme Antibodies, WB IgG NEGATIVE (NEGATIVE); Lyme Antibodies, WB IgM POSITIVE (NEGATIVE)
[2023-03-04 06:55] LABS: Hematocrit (blood only) 37.4 % (42.0-52.0); Hemoglobin 12.6 g/dl (14.0-18.0); Mean Corpuscular Hemoglobin 30.5 pg (25.0-34.0); Mean Corpuscular Hgb Conc 33.7 g/dL (32.0-36.0); Mean Corpuscular Volume 90.6 fL (80.0-100.0); Mean Platelet Volume 10.2 fL (9.4-12.4); Platelet Count 195 K/uL (130-400); RDW Coefficient of Variation 13.5 % (11.5-14.5); RDW Standard Deviation 44.4 fL (36.4-46.3); Red Blood Count 4.13 M/uL (4.70-6.10); White Blood Count 5.37 K/ul (4.8-10.8)
[2023-03-04 07:01] LABS: BUN Creatinine Ratio 22.7 (10-20); Calcium 8.7 mg/dl (8.6-10.3); Creatinine Clr Calc Pharmacy 79.1 ml/min; Est GFR (Non-African American) 82.9 ml/min; Potassium 4.1 mmol/L (3.5-5.1)
[2023-03-04 07:37] LABS: INR 1.3 (0.9-1.1); Partial Thromboplastin Ratio 2.4; Prothrombin Time 13.9 Seconds (9.0-12.0)
[2023-03-04 08:10] LABS: Partial Thromboplastin Time 67.9 Seconds (21.0-31.0)
[2023-03-04] MEDS: METOPROLOL SUCC 25MG EXT REL TAB PO SCH (09:31)
[2023-03-04] MEDS: DOCUSATE SODIUM/SENNA 50/8.6MG TAB PO SCH ×2 (09:32→19:55)
[2023-03-04] MEDS: FERROUS GLUCONATE 324 MG TAB PO SCH (09:32)
[2023-03-04] MEDS: DOXYCYCLINE HYCLATE 100 MG CAP PO SCH ×2 (09:32→19:54)
[2023-03-04] MEDS: MULTIVITAMIN TAB PO SCH (09:33)
[2023-03-04] MEDS: FAMOTIDINE 20 MG TAB PO SCH (09:36)
--- NOTE | 2023-03-04 11:59 | Cardiology Progress Note ---
Date of Service March 04, 2023 Assessment & Plan (1) Atrial fibrillation with rapid ventricular response: (2) Aortic stenosis: (3) Acute Lyme disease: Plan 03/04/2023. Patient continues to clinically improved. Lyme screen positive as well as for anaplasmosis with patient on treatment doxycycline as well as ceftriaxone yesterday and today Atrial fibrillation rates are controlled with no further bradycardia rhythm we will continue metoprolol succinate Will need bridging anticoagulation with Lovenox to Coumadin Discussed in detail with patient and Addendum: Nonsustained ventricular tachycardia noted on telemetry this afternoon. We will add p.m. dose of metoprolol succinate. Keep on telemetry overnight. EKG a.m. Admission and Anticipated Discharge Date Admission Date: February 28, 2023 Subjective Patient seen and examined, chart, medications, telemetry reviewed Feels well this morning ambulatory in room. No pauses or significant bradycardia arrhythmias or tachyarrhythmias on telemetry. No edema. No fevers or chills. Physical Exam Constitutional: WD/WN, vitals as above no acute distress Eyes: PERRL, conjunctivae normal, anicteric sclerae ENMT: external ear and nose normal, oropharynx normal Neck: trachea midline, no thyromegaly Respiratory: normal respiratory effort, lungs clear to auscultation Cardiovascular: Rate/Rhythm: + tachycardic and + irregularly irregular Heart Sounds: + murmur (Grade 3/6 harsh systolic murmur) Vessels: no JVD Extremities: no edema Results & Data Vital Signs (Past 12 Hours) Vital Signs Temp Pulse Pulse Resp BP Pulse Ox O2 Del Method 03/04/23 11:38 36.5 C 80 18 107/65 99 Room Air 03/04/23 08:00 73 03/04/23 07:26 36.6 C 74 18 118/76 97 Room Air 03/04/23 03:56 67 03/04/23 03:53 36.8 C 105 H 18 112/64 92 Room Air Laboratory Results Laboratory Results - last 24 hr 02/28/23 03/03/23 03/04/23 21:00 14:09 06:12 WBC RBC Hgb Hct MCV MCH MCHC RDW Std Deviation RDW Coeff of Neville Plt Count MPV PT 13.9 H INR 1.3 H APTT 66.6 H* 67.9 H* PTT Ratio 2.4 2.4 Sodium Potassium Chloride Carbon Dioxide Anion Gap BUN Creatinine Est Cr Clr Drug Dosing Est GFR ( Amer) Est GFR (Non-Af Amer) BUN/Creatinine Ratio Glucose Calcium Lyme IgG (Western Blot) NEGATIVE Lyme IgG 18 kDa Band NON-REACTIVE Lyme IgG 23 kDa Band NON-REACTIVE Lyme IgG 28 kDa Band NON-REACTIVE Lyme IgG 30 kDa Band NON-REACTIVE Lyme IgG 39 kDa Band NON-REACTIVE Lyme IgG 41 kDa Band NON-REACTIVE Lyme IgG 45 kDa Band NON-REACTIVE Lyme IgG 58 kDa Band NON-REACTIVE Lyme IgG 66 kDa Band NON-REACTIVE Lyme IgG 93 kDa Band REACTIVE A Lyme IgM Ab (WB) POSITIVE A Lyme IgM 23 kDa Band REACTIVE A Lyme IgM 39 kDa Band REACTIVE A Lyme IgM 41 kDa Band NON-REACTIVE 03/04/23 03/04/23 06:12 06:12 WBC 5.37 RBC 4.13 L Hgb 12.6 L Hct 37.4 L MCV 90.6 MCH 30.5 MCHC 33.7 RDW Std Deviation 44.4 RDW Coeff of Neville 13.5 Plt Count 195 MPV 10.2 PT INR APTT PTT Ratio Sodium 138 Potassium 4.1 Chloride 106 Carbon Dioxide 27 Anion Gap 5 BUN 20 Creatinine 0.88 Est Cr Clr Drug Dosing 79.1 Est GFR ( Amer) 96.0 Est GFR (Non-Af Amer) 82.9 BUN/Creatinine Ratio 22.7 H Glucose 105 H Calcium 8.7 Lyme IgG (Western Blot) Lyme IgG 18 kDa Band Lyme IgG 23 kDa Band Lyme IgG 28 kDa Band Lyme IgG 30 kDa Band Lyme IgG 39 kDa Band Lyme IgG 41 kDa Band Lyme IgG 45 kDa Band Lyme IgG 58 kDa Band Lyme IgG 66 kDa Band Lyme IgG 93 kDa Band Lyme IgM Ab (WB) Lyme IgM 23 kDa Band Lyme IgM 39 kDa Band Lyme IgM 41 kDa Band (2) Aortic stenosis Cardiac valve disease etiology: etiology unspecified Qualified Code(s): I35.0 - Nonrheumatic aortic (valve) stenosis
[2023-03-04] MEDS ORDERED: WARFARIN SOD 7.5 MG TAB PO SCH ×2 (15:00→16:00)
[2023-03-04] MEDS ORDERED: LOVENOX TEACHING KIT ONE (15:00)
[2023-03-04 15:37] LABS: Partial Thromboplastin Ratio 1.9
[2023-03-04 15:41] LABS: Partial Thromboplastin Time 53.9 Seconds (21.0-31.0)
[2023-03-04] MEDS: cefTRIAXone SODIUM 2,000 MG in DEXTROSE 5% 50 ML IV SCH (16:09)
[2023-03-04] MEDS: ENOXAPARIN 150 MG/ML SYR SQ SCH (16:15)
--- NOTE | 2023-03-04 19:21 | Hospitalist Progress Note ---
Date of Service March 04, 2023 Assessment & Plan (1) Atrial fibrillation with rapid ventricular response: Plan: A-fib RVR NSVT Aortic stenosis Troponin elevation secondary to A-fib. Likely demand ischemia On Lovenox, Coumadin Monitor INR Continue metoprolol Appreciate cardiology input Needs follow-up with Coumadin clinic and cardiology upon discharge Lyme's disease Anaplasmosis Serology reviewed Continue doxycycline to complete 14 days Also on Rocephin Transaminitis, thrombocytopenia likely due to tickborne infection. Thrombocytopenia resolved Acute kidney injury Cr is 2 on admission Resolved. Cr is 0.88 today Resume HCTZ as able Chronic diastolic heart failure (EF 70%, TTE 2022) Valvular heart disease (moderate , mild MR), [facility] [place] contemplated end of the month for bicuspid aortic valve stenosis Hyperlipidemia, on statin Rx Prediabetes, hemoglobin A1c of 5.9 last February 2023 Elevated PSA is chronic. Follows with urology as outpatient DVT Px: Lovenox+ warfarin Code Status Full code Admission and Anticipated Discharge Date Admission Date: February 28, 2023 Subjective Patient is seen and examined at bedside Offers no complaints this morning Eager to get discharged Had 42 beats of V. tach on monitor Discussed with cardiology today Review of Systems Review of Systems: All systems reviewed & are unremarkable except as noted in Subjective Physical Exam Physical Exam: Physical Exam: Vitals signs as noted above General Appearance:Moderately built and nourished, no apparent distress Head: normocephalic, Atraumatic Eyes: normal inspection, EOMI Neck: supple, Trachea midline Respiratory/Chest: Normal breath sounds, CTA, No accessory muscle use Cardiovascular: Irregularly irregular, +murmur Abdomen/GI:Soft, Non tender, Bowel sounds present Extremities/Musculoskeletal:normal inspection, no edema Neurologic/Psych:AAOX3, grossly no focal neurological deficits Skin: normal color, warm Results & Data Results & Data Vital Signs (Past 12 Hours) Vital Signs Temp Pulse Pulse Resp BP Pulse Ox O2 Del Method 03/04/23 15:30 36.8 C 70 18 105/66 97 Room Air 03/04/23 15:36 61 03/04/23 11:38 36.5 C 80 18 107/65 99 Room Air 03/04/23 08:00 73 03/04/23 07:26 36.6 C 74 18 118/76 97 Room Air Laboratory Results Short CBC 03/04/23 Range/Units 06:12 WBC 5.37 (4.8-10.8) K/ul Hgb 12.6 L (14.0-18.0) g/dl Hct 37.4 L (42.0-52.0) % Plt Count 195 (130-400) K/uL [facility] 03/04/23 06:12 Sodium 138 Potassium 4.1 Chloride 106 Carbon Dioxide 27 BUN 20 Creatinine 0.88 Glucose 105 H Calcium 8.7
[2023-03-04] MEDS: SIMVASTATIN 20 MG TAB PO SCH (19:54)
[2023-03-04] MEDS ORDERED: METOPROLOL SUCC 25MG EXT REL TAB PO SCH (21:00)
[2023-03-04] MEDS ORDERED: ENOXAPARIN 100 MG/1ML SYR SQ SCH (21:00)
[2023-03-04] MEDS ORDERED: HEPARIN SODIUM/DEXTROSE 25,000 UNITS/500 ML BAG IV SCH (21:00)
[2023-03-05 06:47] LABS: Babesia microti DNA Not Detected (Not Detected)
[2023-03-05 08:23] LABS: Calcium 9.1 mg/dl (8.6-10.3); Creatinine Clr Calc Pharmacy 84.6 ml/min; Est GFR (African American) 98.9 ml/min; Est GFR (Non-African American) 85.3 ml/min; Magnesium 1.8 mg/dl (1.7-2.4); Potassium 4.7 mmol/L (3.5-5.1)
[2023-03-05] MEDS: FAMOTIDINE 20 MG TAB PO SCH (08:34)
[2023-03-05] MEDS: FERROUS GLUCONATE 324 MG TAB PO SCH (08:34)
[2023-03-05] MEDS: DOCUSATE SODIUM/SENNA 50/8.6MG TAB PO SCH (08:34)
[2023-03-05] MEDS: DOXYCYCLINE HYCLATE 100 MG CAP PO SCH (08:34)
[2023-03-05] MEDS: MULTIVITAMIN TAB PO SCH (08:34)
[2023-03-05] MEDS: METOPROLOL SUCC 25MG EXT REL TAB PO SCH (08:34)
[2023-03-05 08:35] LABS: INR 1.9 (0.9-1.1); Prothrombin Time 19.8 Seconds (9.0-12.0)
--- NOTE | 2023-03-05 10:41 | Electrocardiogram Report ---
Test Reason : Blood Pressure : / mmHG Vent. Rate : 064 BPM Atrial Rate : 115 BPM P-R Int : 000 ms QRS Dur : 112 ms QT Int : 418 ms P-R-T Axes : 000 -27 -05 degrees QTc Int : 431 ms Atrial fibrillation Minimal voltage criteria for LVH, may be normal variant MIld ST segement elevation in lateral precordial leads Nonspecific ST abnormality Abnormal ECG When compared with ECG of 04-MAR-2023 16:01, (unconfirmed) No significant change was found Confirmed by Eleuterio Macedo ([id number]) on 03/05/2023 10:40:54 AM Referred By: REFERRED SELF Confirmed By:Max Macedo
--- NOTE | 2023-03-05 10:45 | Electrocardiogram Report ---
Test Reason : Blood Pressure : / mmHG Vent. Rate : 067 BPM Atrial Rate : 220 BPM P-R Int : 000 ms QRS Dur : 112 ms QT Int : 438 ms P-R-T Axes : 000 -36 -05 degrees QTc Int : 462 ms Poor data quality, interpretation may be adversely affected Atrial fibrillation Left axis deviation Minimal voltage criteria for LVH, may be normal variant Nonspecific ST abnormality Abnormal ECG When compared with ECG of 28-FEB-2023 18:19, Vent. rate has decreased BY 47 BPM Inverted T waves have replaced nonspecific T wave abnormality in Inferior leads Confirmed by Eleuterio Macedo ([id number]) on 03/05/2023 10:44:42 AM Referred By: REFERRED SELF Confirmed By:Max Macedo
--- NOTE | 2023-03-05 12:21 | Cardiology Progress Note ---
Date of Service March 05, 2023 Assessment & Plan (1) Atrial fibrillation with rapid ventricular response: (2) Aortic stenosis: (3) Acute Lyme disease: Plan 03/04/2023. Patient continues to clinically improved. Lyme screen positive as well as for anaplasmosis with patient on treatment doxycycline as well as ceftriaxone yesterday and today Atrial fibrillation rates are controlled with no further bradycardia rhythm we will continue metoprolol succinate Will need bridging anticoagulation with Lovenox to Coumadin Discussed in detail with patient and Addendum: Nonsustained ventricular tachycardia noted on telemetry this afternoon. We will add p.m. dose of metoprolol succinate. Keep on telemetry overnight. EKG a.m. 03/05/2023 Clinically stable. Would recommend third dose of ceftriaxone today. Complete 14-day course of doxycycline as recommended Remain on warfarin with referral to coag clinic Metoprolol succinate 25 mg a.m. 12.5 g p.m. Discussed daily weights and reporting any signs or symptoms of fluid retention Keep upcoming appoint with primary care physician next week Scheduled for cardiovascular surgery 03/18/2023 patient to remain sedentary until then Admission and Anticipated Discharge Date Admission Date: February 28, 2023 Subjective Patient seen and examined, chart, medications telemetry reviewed Patient feels well, no chest pain shortness of breath dizziness or lightheadedness. No further arrhythmias on telemetry other than atrial fibrillation with controlled ventricular response EKG without acute changes normal QT corrected interval Review of Systems Review of Systems: All systems reviewed & are unremarkable except as noted in Subjective Physical Exam Constitutional: WD/WN, vitals as above no acute distress Eyes: PERRL, conjunctivae normal, anicteric sclerae ENMT: external ear and nose normal, oropharynx normal Neck: trachea midline, no thyromegaly Respiratory: normal respiratory effort, lungs clear to auscultation Cardiovascular: Rate/Rhythm: + irregularly irregular Heart Sounds: + murmur (Grade 3/6 harsh systolic murmur) Vessels: no JVD Extremities: no edema Results & Data Vital Signs (Past 12 Hours) Vital Signs Temp Pulse Pulse Resp BP Pulse Ox O2 Del Method 03/05/23 09:00 69 03/05/23 08:04 36.6 C 74 18 127/78 96 Room Air 03/05/23 03:31 36.5 C 70 18 132/72 98 Room Air Laboratory Results Laboratory Results - last 24 hr 02/28/23 03/04/23 03/05/23 21:00 14:34 07:34 PT 19.8 H INR 1.9 H APTT 53.9 H* PTT Ratio 1.9 Sodium Potassium Chloride Carbon Dioxide Anion Gap BUN Creatinine Est Cr Clr Drug Dosing Est GFR ( Amer) Est GFR (Non-Af Amer) BUN/Creatinine Ratio Glucose Calcium Magnesium Babesia microti DNA PCR Not Detected 03/05/23 07:34 PT INR APTT PTT Ratio Sodium 138 Potassium 4.7 Chloride 108 H Carbon Dioxide 25 Anion Gap 5 BUN 18 Creatinine 0.82 Est Cr Clr Drug Dosing 84.6 Est GFR ( Amer) 98.9 Est GFR (Non-Af Amer) 85.3 BUN/Creatinine Ratio 22.0 H Glucose 98 Calcium 9.1 Magnesium 1.8 Babesia microti DNA PCR (2) Aortic stenosis Cardiac valve disease etiology: etiology unspecified Qualified Code(s): I35.0 - Nonrheumatic aortic (valve) stenosis
--- NOTE | 2023-03-05 15:17 | Hospitalist Progress Note ---
Date of Service March 05, 2023 Assessment & Plan (1) Atrial fibrillation with rapid ventricular response: Plan: A-fib RVR NSVT Aortic stenosis Troponin elevation secondary to A-fib. Likely demand ischemia On Lovenox, Coumadin Will be given Lovenox SQ today prior to discharge. Given reasonable INR, no plan to continue Lovenox upon discharge (discussed with cardiology today) Monitor INR 1.9 today Continue metoprolol succinate 25 mg a.m. and 12.5 mg p.m. Appreciate cardiology input Needs follow-up with Coumadin clinic and cardiology upon discharge Also needs follow-up with valve clinic upon discharge Lyme's disease Anaplasmosis Serology reviewed Continue doxycycline to complete 14 days Also on Rocephin--will complete 3-day course. Transaminitis, thrombocytopenia likely due to tickborne infection. Thrombocytopenia resolved Acute kidney injury Cr is 2 on admission Resolved. Cr is 0.82 today Resume HCTZ upon discharge Chronic diastolic heart failure (EF 70%, TTE 2022) Valvular heart disease (moderate , mild MR), [facility] [place] surgery contemplated end of the month for bicuspid aortic valve stenosis Hyperlipidemia, on statin Rx Prediabetes, hemoglobin A1c of 5.9 last February 2023 Elevated PSA is chronic. Follows with urology as outpatient DVT Px: Lovenox+ warfarin Code Status Full code Admission and Anticipated Discharge Date Admission Date: February 28, 2023 Subjective Patient is seen and examined at bedside States feeling well today No new complaints No further arrhythmias on monitor Patient denies any chest pain, dizziness, nausea, vomiting, dyspnea Discussed with patient's family at bedside Also discussed with cardiology. Review of Systems Review of Systems: All systems reviewed & are unremarkable except as noted in Subjective Physical Exam Physical Exam: Physical Exam: Vitals signs as noted above General Appearance:Moderately built and nourished, no apparent distress Head: normocephalic, Atraumatic Eyes: normal inspection, EOMI Neck: supple, Trachea midline Respiratory/Chest: Normal breath sounds, CTA, No accessory muscle use Cardiovascular: Irregularly irregular, +murmur Abdomen/GI:Soft, Non tender, Bowel sounds present Extremities/Musculoskeletal:normal inspection, no edema Neurologic/Psych:AAOX3, grossly no focal neurological deficits Skin: normal color, warm Results & Data Results & Data Vital Signs (Past 12 Hours) Vital Signs Temp Pulse Pulse Resp BP Pulse Ox O2 Del Method 03/05/23 12:19 36.7 C 73 18 110/70 98 Room Air 03/05/23 09:00 69 03/05/23 08:04 36.6 C 74 18 127/78 96 Room Air 03/05/23 03:31 36.5 C 70 18 132/72 98 Room Air Laboratory Results [facility] 03/05/23 07:34 Sodium 138 Potassium 4.7 Chloride 108 H Carbon Dioxide 25 BUN 18 Creatinine 0.82 Glucose 98 Calcium 9.1
[2023-03-05] MEDS: ENOXAPARIN 150 MG/ML SYR SQ SCH (15:23)
[2023-03-05] MEDS: cefTRIAXone SODIUM 2,000 MG in DEXTROSE 5% 50 ML IV SCH (15:23)
--- NOTE | 2023-03-05 15:44 | Discharge Summary ---
Date of Service March 05, 2023 Admission HPI Per Admitting Provider History obtained from patient and records. Medical history significant for chronic diastolic heart failure (EF 70%, TTE 2022), PAF, valvular heart disease (moderate , mild MR), PVD, hypertension, hyperlipidemia, prediabetes. Last confinement March 2020 for syncope attributed to orthostasis. Patient recalls history of A-fib about 50 years ago precipitated by cold exposure. Remembers being given digoxin medication. Not sure about blood thinners. Patient not feeling well the last few weeks. Poor appetite, dry cough. Patient completed COVID-19 vaccination. Not sure about COVID-19 contacts. No chest pain, no SOB. Mild abdominal discomfort with constipation symptoms. Possible tick exposure. Patient seen at weekend clinic today. SBP noted to be 90s. A-fib RVR on EKG. Patient directed to ER for evaluation. Doxycycline administered at the ER for tickborne infection. Medical History as above Surgical History : Abdominal wall subcutaneous tumor removal, cystoscopy, dental surgery, tonsillectomy, TURP, umbilical hernia repair Family History : DM, heart disease, stroke Personal/Social history : Non-smoker, EtOH intake, businessman Admission Exam Per Admitting Provider GENERAL: Comfortable, pleasant, incessant dry cough symptoms, obese, no respiratory distress SKIN: Normal color, warm HEENT: [place] palpebral conjunctivae, no ptosis, dry buccal mucosa NECK : Supple, short neck, no tenderness CHEST : CTA, no tenderness HEART : Irregular, systolic murmur ABDOMEN: Some distention, nontender EXTREMITIES : No LE swelling/tenderness, no other conspicuous deformities noted NEUROLOGIC : Coherent, no facial asymmetry, no other gross focality Principal Diagnosis Atrial fibrillation with rapid ventricular response Lyme's disease Anaplasmosis Aortic stenosis Nonsustained ventricular tachycardia Acute kidney injury Discharge Data Allergies Allergy/AdvReac Type Severity Reaction Status Date / Time bee venom protein (honey bee) Allergy Severe Anaphylaxis--PER Verified 02/28/23 18:51 GMG "HYPOTENSIVE EPISODE" Consultations 02/28/23 21:13 ED Decision to Admit Stat 02/28/23 22:54 Consult Cardiology Routine 03/01/23 11:37 Consult Infectious Diseases Routine Procedures Performed Laboratory Results WBC 5.37 K/ul (4.8-10.8) 03/04/23 06:12 RBC 4.13 M/uL (4.70-6.10) L 03/04/23 06:12 Hgb 12.6 g/dl (14.0-18.0) L 03/04/23 06:12 POC Hgb 15.6 g/dl (14.0-18.0) 02/28/23 18:34 Hct 37.4 % (42.0-52.0) L 03/04/23 06:12 POC Hct 46 % (42-52) 02/28/23 18:34 MCV 90.6 fL (80.0-100.0) 03/04/23 06:12 MCH 30.5 pg (25.0-34.0) 03/04/23 06:12 MCHC 33.7 g/dL (32.0-36.0) 03/04/23 06:12 RDW Std Deviation 44.4 fL (36.4-46.3) 03/04/23 06:12 RDW Coeff of Neville 13.5 % (11.5-14.5) 03/04/23 06:12 Plt Count 195 K/uL (130-400) 03/04/23 06:12 MPV 10.2 fL (9.4-12.4) 03/04/23 06:12 Neutrophils % (Manual) 51 % 03/01/23 05:34 Lymphocytes % (Manual) 16 % 03/01/23 05:34 Reactive Lymphs % (Man) 23 % 03/01/23 05:34 Monocytes % (Manual) 9 % 03/01/23 05:34 Metamyelocytes % (Man) 1 % 02/28/23 18:27 Neutrophils # (Manual) 4.33 K/uL (1.40-6.50) 03/01/23 05:34 Total Absolute Neuts 4.33 K/uL (1.4-6.5) 03/01/23 05:34 Lymphocytes # (Manual) 1.36 K/uL (1.2-3.4) 03/01/23 05:34 Reactive Lymphs # 1.95 K/uL 03/01/23 05:34 Total Abs Lymphocytes 3.31 K/uL (1.2-3.4) 03/01/23 05:34 Monocytes # (Manual) 0.76 K/uL (0.11-0.59) H 03/01/23 05:34 Metamyelocytes # (Man) 0.10 K/uL (0-0) H 02/28/23 18:27 Platelet Estimate Decreased (Normal) L 02/28/23 18:27 Polychromasia 1+ 03/01/23 05:34 Echinocytes 1+ 02/28/23 18:27 Peripher Smr Path Cons 02/28/23 18:27 PT 19.8 Seconds (9.0-12.0) H 03/05/23 07:34 INR 1.9 (0.9-1.1) H 03/05/23 07:34 APTT 53.9 Seconds (21.0-31.0) H* 03/04/23 14:34 PTT Ratio 1.9 03/04/23 14:34 POC Sodium 133 mmol/L (135-144) L 02/28/23 18:34 Sodium 138 mmol/L (136-145) 03/05/23 07:34 POC Potassium 3.5 mmol/L (3.3-5.0) 02/28/23 18:34 Potassium 4.7 mmol/L (3.5-5.1) 03/05/23 07:34 POC Chloride 95 mmol/L (101-112) L 02/28/23 18:34 Chloride 108 mmol/L (98-107) H 03/05/23 07:34 Carbon Dioxide 25 mmol/L (21-32) 03/05/23 07:34 POC Total CO2 22 mmol/L (24-31) L 02/28/23 18:34 Anion Gap 5 (3-11) 03/05/23 07:34 POC Anion Gap 20.0 mmol/L (16-25) 02/28/23 18:34 POC BUN 74 mg/dl (7-18) H 02/28/23 18:34 BUN 18 mg/dl (6-23) 03/05/23 07:34 Creatinine 0.82 mg/dl (0.6-1.4) 03/05/23 07:34 POC Creatinine 2.0 mg/dl (0.6-1.3) H 02/28/23 18:34 Est Cr Clr Drug Dosing 84.6 ml/min 03/05/23 07:34 Est GFR ( Amer) 98.9 ml/min 03/05/23 07:34 Est GFR (Non-Af Amer) 85.3 ml/min 03/05/23 07:34 BUN/Creatinine Ratio 22.0 (10-20) H 03/05/23 07:34 Glucose 98 mg/dl (70-99(Fasting)) 03/05/23 07:34 POC Glucose (other) 176 mg/dl (70-99) H 02/28/23 18:34 Lactate 1.7 mmol/L (0.4-2.0) 02/28/23 20:20 Calcium 9.1 mg/dl (8.6-10.3) 03/05/23 07:34 POC Ioniz Calcium Wolf 1.10 mmol/l (1.12-1.32) L 02/28/23 18:34 Phosphorus 2.8 mg/dl (2.5-4.9) 03/03/23 05:44 Magnesium 1.8 mg/dl (1.7-2.4) 03/05/23 07:34 Total Bilirubin 1.4 mg/dl (0.2-1.0) H 03/01/23 05:34 Direct Bilirubin 0.4 mg/dl (0-0.2) H 03/01/23 05:34 AST 49 U/L (13-39) H 03/01/23 05:34 ALT 58 U/L (7-52) H 03/01/23 05:34 Alkaline Phosphatase 49 U/L (34-104) 03/01/23 05:34 Troponin I High Sens 34.1 pg/ml (0-20) H D 02/28/23 23:18 Total Protein 5.4 gm/dl (6.0-8.3) L D 03/01/23 05:34 Albumin 3.0 gm/dl (3.4-5.0) L 03/01/23 05:34 Globulin 3.2 gm/dl (2.5-4.0) 02/28/23 18:27 Albumin/Globulin Ratio 1.2 (0.9-2) 02/28/23 18:27 TSH 2.008 uIu/ml (0.300-4.500) 02/28/23 18:27 Adenovirus (PCR) Not Detected (NotDetected) 02/28/23 18:27 Anaplasma Smear See Comment A 02/28/23 18:27 Anaplasma Comment Pos for Anaplasma 02/28/23 18:27 Babesia Smear See Comment 02/28/23 18:27 Babesia microti DNA PCR Not Detected (Not Detected) 02/28/23 21:00 B. pertussis DNA (PCR) Not Detected (NotDetected) 02/28/23 18:27 B.parapertussis DNA PCR Not Detected (NotDetected) 02/28/23 18:27 Lyme Disease IgG Ab Negative (Negative) 02/28/23 21:00 Lyme IgG (Western Blot) NEGATIVE (NEGATIVE) 02/28/23 21:00 Lyme IgG 18 kDa Band NON-REACTIVE 02/28/23 21:00 Lyme IgG 23 kDa Band NON-REACTIVE 02/28/23 21:00 Lyme IgG 28 kDa Band NON-REACTIVE 02/28/23 21:00 Lyme IgG 30 kDa Band NON-REACTIVE 02/28/23 21:00 Lyme IgG 39 kDa Band NON-REACTIVE 02/28/23 21:00 Lyme IgG 41 kDa Band NON-REACTIVE 02/28/23 21:00 Lyme IgG 45 kDa Band NON-REACTIVE 02/28/23 21:00 Lyme IgG 58 kDa Band NON-REACTIVE 02/28/23 21:00 Lyme IgG 66 kDa Band NON-REACTIVE 02/28/23 21:00 Lyme IgG 93 kDa Band REACTIVE A 02/28/23 21:00 Lyme IgM Ab (WB) POSITIVE (NEGATIVE) A 02/28/23 21:00 Lyme Disease IgM Ab Positive (Negative) A 02/28/23 21:00 Lyme IgM 23 kDa Band REACTIVE A 02/28/23 21:00 Lyme IgM 39 kDa Band REACTIVE A 02/28/23 21:00 Lyme IgM 41 kDa Band NON-REACTIVE 02/28/23 21:00 C. pneumoniae DNA (PCR) Not Detected (NotDetected) 02/28/23 18:27 Coronavirus OC43 (PCR) Not Detected (NotDetected) 02/28/23 18:27 Coronavirus HKU1 (PCR) Not Detected (NotDetected) 02/28/23 18:27 Coronavirus 229E (PCR) Not Detected (NotDetected) 02/28/23 18:27 SARS-CoV-2 (PCR) Not Detected (NotDetected) 02/28/23 18:27 Coronavirus NL63 (PCR) Not Detected (NotDetected) 02/28/23 18:27 Human Metapneumovir PCR Not Detected (NotDetected) 02/28/23 18:27 Influenza Type A (PCR) Not Detected (NotDetected) 02/28/23 18:27 Influenza Type B (PCR) Not Detected (NotDetected) 02/28/23 18:27 M. pneumoniae (PCR) Not Detected (NotDetected) 02/28/23 18:27 Parainfluenza 1 (PCR) Not Detected (NotDetected) 02/28/23 18:27 Parainfluenza 2 (PCR) Not Detected (NotDetected) 02/28/23 18:27 Parainfluenza 3 (PCR) Not Detected (NotDetected) 02/28/23 18:27 Parainfluenza 4 (PCR) Not Detected (NotDetected) 02/28/23 18:27 RSV (PCR) Not Detected (NotDetected) 02/28/23 18:27 Entero/Rhino (PCR) Not Detected (NotDetected) 02/28/23 18:27 Impressions Chest X-Ray 02/28/23 18:20 XR chest 1V portable CLINICAL HISTORY: Dysrhythmia TECHNIQUE: Single frontal radiograph of the chest was obtained. Comparison: Comparison is made to 03/20/2020 FINDINGS: No lines and tubes are seen. The cardiomediastinal silhouette is stable. The lungs are clear. No evidence of pleural effusion or pneumothorax. IMPRESSION: No acute chest disease. ACT 112: Negative or not required by law. Electronically signed by: Morgan Crockett M.D. 02/28/2023 7:31 PM Abdomen/Pelvis CT 02/28/23 19:27 CT abd pelvis wo con CLINICAL HISTORY: abd pain, elevated lactate, lfts TECHNIQUE: Helical axial images of the abdomen and pelvis were obtained. Automated dose lowering techniques and/or adjustment according to patient size were utilized for this exam. This exam was performed without intravenous contrast. CT DOSE: 1081.14 mGy.cm COMPARISON: None available at the time of this dictation. FINDINGS: Lower chest: Bibasilar atelectasis versus scarring is seen. Cardiomegaly is seen. Liver: Unremarkable. No focal lesions are seen. Gallbladder and biliary tree: No calcified gallstones. Normal caliber wall. No intra- or extrahepatic biliary ductal dilation. Pancreas: Unremarkable, no focal lesions. Spleen: Unremarkable. Adrenals: Bilateral adrenal gland thickening is again seen. Kidneys and ureters: Renal cysts are seen. Milk of calcium is noted in a left renal cyst. Nonobstructive stones are seen bilaterally. Bladder: Unremarkable. Reproductive organs: Prostatomegaly is seen. Bowel: Diverticulosis is seen without evidence of diverticulitis. The appendix is normal. Lymph nodes Retroperitoneal: Unremarkable. Pelvic: Unremarkable. Mesenteric: Unremarkable. Peritoneum: Normal. Vessels: Atherosclerotic calcifications are seen. Abdominal wall: Unremarkable. Bones: Degenerative changes in the visualized spine. IMPRESSION: 1. No acute abnormalities are seen. 2. Nonobstructive nephrolithiasis is seen bilaterally. 3. Diverticulosis without diverticulitis 4. Prostatomegaly. 5. Additional findings as above. ACT 112: Negative or not required by law. Electronically signed by: Morgan Crockett M.D. 02/28/2023 8:30 PM Gallbladder Ultrasound 02/28/23 20:00 Exam(s): US GALLBLADDER EXAM: US Abdomen Limited, Gallbladder CLINICAL HISTORY: Reason for exam: abd pain, elevated LFTs. TECHNIQUE: Real-time ultrasound of the right upper quadrant with image documentation. COMPARISON: No relevant prior studies available. FINDINGS: Liver: Hepatic steatosis. Gallbladder: Unremarkable. No gallbladder wall thickening or pericholecystic fluid. No gallstones. Common bile duct: Unremarkable as visualized. No stones. No dilation. Normal, 5 mm common bile duct. Pancreas: Unremarkable as visualized. Right kidney: RIGHT upper pole renal cyst measures 2.8 x 3.1 x 2.4 cm. IMPRESSION: 1. Hepatic steatosis. 2. RIGHT upper pole renal cyst measures 2.8 x 3.1 x 2.4 cm. Electronically signed by: Jean-Pierre Tadeo MD 02/28/23 21:06 PM Ordered Studies 02/28/23 19:27 CT Abd and Pelvis [CT abd pelvis wo con] Stat 02/28/23 20:00 US gallbladder Stat Hospital Course (1) Atrial fibrillation with rapid ventricular response: A-fib RVR NSVT Aortic stenosis Troponin elevation secondary to A-fib. Likely demand ischemia On Lovenox, Coumadin Will be given Lovenox SQ today prior to discharge. Given reasonable INR, no plan to continue Lovenox upon discharge (discussed with cardiology today) Monitor INR 1.9 today Continue metoprolol succinate 25 mg a.m. and 12.5 mg p.m. Appreciate cardiology input Needs follow-up with Coumadin clinic and cardiology upon discharge Also needs follow-up with valve clinic upon discharge Lyme's disease Anaplasmosis Serology reviewed Continue doxycycline to complete 14 days Also on Rocephin--will complete 3-day course. Transaminitis, thrombocytopenia likely due to tickborne infection. Thrombocytopenia resolved Acute kidney injury Cr is 2 on admission Resolved. Cr is 0.82 today Resume HCTZ upon discharge Chronic diastolic heart failure (EF 70%, TTE 2022) Valvular heart disease (moderate , mild MR), [facility] [place] contemplated end of the month for bicuspid aortic valve stenosis Hyperlipidemia, on statin Rx Prediabetes, hemoglobin A1c of 5.9 last February 2023 Elevated PSA is chronic. Follows with urology as outpatient DVT Px: Lovenox+ warfarin Code Status Full code Total Time Total Time Spent Total Time Spent (In Minutes): 56 minutes Discharge Plan Discharge Items Patient Disposition: Home - Self-Care Reason For Visit: AFIB Discharge Diagnosis: Atrial fibrillation with rapid ventricular response Lyme's disease Anaplasmosis Aortic stenosis Nonsustained ventricular tachycardia Acute kidney injury Activity: Per Instructions section Exercise/Sports: Wait until after follow-up appointment Non-emergency contact: Primary Care Provider and Rental Clerk Call non-emergency contact if: you have any medication questions, your symptoms worsen, your pain is concerning for you and you have a fever Follow-up/Referrals: Omid Walls DO [Primary Care Provider] - (Date & Time 03/09/2023 1:40 PM Provider Omid Walls DO Department [facility] ) Diet: Heart Healthy Addtl Attending Provider Instructions: Follow-up with your primary care physician Dr. Walls on 03/09/2023 1:40 PM Follow-up with your computer training specialist Dr. Florez as recommended Follow-up with your surgeon for further evaluation of aortic stenosis as advised. Follow-up with Coumadin clinic tomorrow 03/06/2023 for further recommendations on Coumadin dose. --Get Blood Test (PT/INR on 03/06/23) and discussed with Coumadin clinic/primary care physician for further instructions on Coumadin dose. Your PT/INR is 1.9 today (03/05/2023) your target PT/INR is 2.0-3.0. You received 5 mg Coumadin today. --- Complete the antibiotic course doxycycline as prescribed. Seek immediate medical attention if your symptoms reoccur or worsen Please take all medications as instructed on discharge list below. Please call if you have any questions or problems. You can reach a [facility] hospitalist on duty at [facility] 24 hours a day by calling [phone] Pending Studies at Discharge: No Stand-Alone Forms: My [facility], Smoking Cessation Medications and DC Order Prescriptions: New doxycycline hyclate 100 mg Capsule 100 mg PO BID 10 Days Qty: 20 0RF metoprolol succinate 25 mg Tablet Extended Release 24 Hr 12.5 mg PO QPM Qty: 30 1RF warfarin 1 mg tablet 1 mg PO UD Qty: 60 2RF Rx Instructions: Follow-up with Coumadin clinic for further instructions on dosing. warfarin 2.5 mg tablet 2.5 mg PO UD Qty: 60 2RF Rx Instructions: Follow-up with Coumadin clinic for further instructions on dosing. warfarin 5 mg tablet 5 mg PO UD Qty: 60 2RF Rx Instructions: Follow-up with Coumadin clinic for further instructions on dosing. Continued famotidine 20 mg tablet 20 mg PO DAILY Galzin 50 mg (zinc) capsule 50 mg PO DAILY ascorbic acid (vitamin C) 1,000 mg capsule 1 g PO QAM cholecalciferol (vitamin D3) 25 mcg (1,000 unit) capsule 25 mcg PO QPM ferrous gluconate [Ferate] 240 mg (27 mg iron) tablet 240 mg PO DAILY multivitamin Tablet 1 tab PO DAILY fluoride (sodium) [PreviDent 5000 Dry Mouth] 1.1 % paste 1 applic dental DAILY epinephrine [EpiPen] 0.3 mg/0.3 mL Auto-Injector 0.3 mg IM DIRECTED PRN (Reason: Allergic Reaction) Rx Instructions: DIRECTED FOR BEE STINGS simvastatin 20 mg Tablet 20 mg PO QPM fluticasone propionate [Flonase Allergy Relief] 50 mcg/actuation [place],Suspension 2 spray INTRANASAL DAILY PRN (Reason: Allergy Symptoms) hydrochlorothiazide 12.5 mg Tablet 12.5 mg PO QAM amoxicillin 500 mg Capsule 500 mg PO DIRECTED PRN (Reason: PRIOR TO DENTAL PROCEDURES) acetaminophen [Tylenol Extra Strength] 500 mg Tablet 1,000 mg PO Q6H PRN (Reason: PAIN/FEVER) docusate sodium 100 mg Capsule 100 mg PO BID PRN (Reason: Constipation) ondansetron [Zofran ODT] 4 mg Tablet,Disintegrating 4 mg PO Q8H PRN (Reason: NAUSEA/VOMITING) metoprolol succinate 25 mg Tablet Extended Release 24 Hr 25 mg PO QAM Qty: 30 0RF Discharge Orders: Discharge Order (Routine); Ordered 03/05/23 Ordered By: Oscar Valentin Admission Data Admit Date/Time: 02/28/23 21:36 Attending Provider: Oscar Valentin Admit Provider: Robinson Wick Primary Care Provider: Omid Walls Other Providers: Robinson Wick ; Estrella Jacobo ; Abraham Aquino ; Reymundo Florez ; Tylor Wilcox ; Suman Cuevas ; Lee Wright ; Maris Ferrara ; Humera Waddell ; Estrella Haley ; Charles Rivera ; Nicanor Cherry ; Bradley Reed ; Kady Gamez ; Oscar Friend I. ; Arturo Brennan II ; Nohelia Toro ; Lee Metzger ; Adrian Arriola ; Franco Kulkarni
[2023-03-05] MEDS ORDERED: WARFARIN SOD 5 MG TAB PO SCH (16:00)
== END 2023-03-05 18:14 | disposition home or self-care (01) | DRG 309 ==
LOC: ED 18:09 → 4W 21:36 → SUATTDRO 21:36 → 4W 22:32